=== PATIENT | female | born 1965 | race Caucasian/White ===

== ENCOUNTER 2020-04-12 07:10 | Emergency (ER) | payer SELFPAY ==
[2020-04-12] VITALS (8 sets, daily range): BP systolic 97–144; BP diastolic 62–93; PULSE 88–102; RESP 14–24; TEMP 36.3; O2SAT 91–98; BMI 22.8
--- NOTE | 2020-04-12 07:25 | ECG_ITS ---
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 Measurements Intervals [place] Rate: 89 P: 85 [place]: 148 QRS: 80 QRSD: 89 T: 71 QT: 357 QTc: 434 Interpretive Statements SINUS RHYTHM No previous ECG available for comparison Electronically Signed On 04-12-2020 19:58:39 TRADE MARK EXAMINER by Noé Parnell M.D. [id number] f
--- NOTE | 2020-04-12 07:25 | XR_ITS ---
WS: [id number] Portable AP upright chest, 04/12/2020 Clinical Data: sob Comparison: None. Findings: No nodules, masses or effusions are seen. The heart is normal. The pulmonary vascularity is not increased. No pneumonia or pneumothorax is seen. The aortic arch shows tortuosity. The diaphragm s are flattened. XR/XR chest 1V portable [id number] Impression: Atherosclerosis and hyperinflation.
--- NOTE | 2020-04-12 07:36 | ED_ITS ---
HPI - SOB/Dyspnea General: Chief Complaint: Shortness of Breath/Dyspnea Stated Complaint: SOB asthma related Time Seen by Provider: 04/12/20 07:16 Source: patient Mode of arrival: ambulatory Limitations: no limitations History of Present Illness: Associated symptoms: Deny abdominal pain, chest congestion, diaphoresis, dizziness, extremity pain, fever(s), hemoptysis, lightheadedness, nausea, orthopnea, palpitations, polydipsia, polyuria, syncope or vomiting Review of Systems Const: Denies: fever(s), chills, body aches, change in appetite, change in weight, fatigue, malaise or diaphoresis Eyes: Denies: change in vision, blurry vision, blind spots, photophobia, eye discomfort, eye discharge, eye redness, floaters or seeing flashes ENMT: Denies: throat pain, uvular edema, enlarged tonsils, odynophagia, hoarseness, mouth pain, swelling of lips/tongue, oral sores, bleeding gums, dental pain, dry mouth, ear or mastoid pain, ear discharge, change in hearing, tinnitus, disequilibrium, nasal discharge, nasal congestion, post nasal drip or sinus pain Card: Denies: palpitations, irregular heart rhythm, edema, swelling of feet/ankles, lightheadedness, syncope, pre-syncope, dyspnea on exertion, orthopnea, leg pain with exertion or acrocyanosis Resp: Denies: productive cough, non-productive cough, stridor, change in phlegm color, hemoptysis or chest congestion GI: Denies: abdominal pain, nausea, vomiting, hematemesis, dysphagia, diarrhea, constipation, GI cramping, change in bowel habits or rectal pain : Denies: flank pain, difficulty voiding, dysuria, urinary frequency, urinary urgency, urinary hesitancy or hematuria Musc: Denies: neck pain, back pain, extremity pain, extremity swelling, joint pain, joint swelling, joint redness, joint warmth or deformity Skin/Breast: Denies: rash, pruritus, erythema, sores, new lesions, changes in skin color or dry skin Neuro: Denies: headache(s), numbness in extremities, weakness in extremities, sensory changes, lack of coordination, difficulty walking, frequent falls, dizziness, vertigo, confusion, behavioral changes, Slurred speech present, difficulty communicating thoughts or seizure-like activity Psych: Denies: anxiety, depression, suicidal ideation or homicidal ideation Endo: Denies: polyuria, polydipsia, tired all the time, cold intolerance, excessive sweating, flushing, hot flashes or heat intolerance Iftikhar/Lymph: Denies: easy bruising, easy bleeding, petechiae, purpura, enlarged lymph nodes or tender lymph nodes All/Imm: Denies: urticaria, throat swelling, tongue swelling, facial swelling, acute wheezing or itchy eyes Physical Exam Const: COMMON NORMALS: patient oriented x3, healthy appearing, alert and well nourished GENERAL APPEARANCE: cooperative, comfortable, well kempt and well developed; not ill appearing ORIENTATION/CONSCIOUSNESS: Yes awake, Yes oriented to person, Yes oriented to place and Yes oriented to time HENMT: COMMON NORMALS: normocephalic, atraumatic, hearing grossly normal bilaterally, external ears normal, EAC's normal, TM's normal bilaterally, Normal external nose present, Normal nasal mucous membranes and turbinates present and moist oral mucous membranes HEAD & SCALP: normal to inspection, normocephalic and atraumatic FACE & SINUS: normal facial exam, sinuses nontender and face symmetric NOSE: Normal external nose present, Normal nares present, Normal nasal mucous membranes and turbinates present, No nasal discharge present and Abnormal external nose present EXTERNAL EAR: Yes external ears normal and Yes mastoids normal EXTERNAL AUDITORY CANAL: EAC's normal TYMPANIC MEMBRANE: TM's normal bilaterally MOUTH: Normal oral and palatal mucosa present, lip normal, tongue normal and Normal salivary glands and ducts present THROAT: no uvular edema Eye: COMMON NORMALS: Equal, round and reactive pupils present, EOMs intact bilaterally, conjunctivae normal, no scleral icterus and no papilledema GENERAL EYE: appearance normal, both eyes and all related structures EYELID: eyelids normal CONJUNCTIVA: Yes conjunctivae normal SCLERA: sclerae normal CORNEA: Yes corneas normal PUPIL: Yes Equal, round and reactive pupils present DIRECT OPHTHALMOSCOPY: Yes no papilledema Neck/C-Spine: COMMON NORMALS: full ROM, no lymphadenopathy, supple, no meningeal signs, no JVD and Thyroid normal GENERAL: Yes normal visual inspection and Yes trachea midline THYROID: Thyroid normal CERVICAL SPINE: Yes cervical ROM normal Lymph: LYMPHATIC: no lymphadenopathy noted and no lymphedema noted Chest: COMMONS NORMALS: normal inspection of the chest and normal palpation of entire chest wall Resp: COMMON NORMALS: No retractions and No use of accessory muscles EFFORT & INSPECTION: Yes symmetric chest movement, Yes tachypneic and Yes audible wheezes Cardio: COMMON NORMALS: no JVD, regular rate and regular rhythm RATE: regular rate RHYTHM: regular rhythm GI: COMMON NORMALS: Normal to inspection, nondistended, normoactive bowel sounds present, Soft to palpation, non-tender, No hepatosplenomegaly present, no masses and no bruits INSPECTION: Yes normal to inspection AUSCULTATION: Yes normoactive bowel sounds PALPATION: Yes Soft to palpation and Yes No hepatosplenomegaly present PERCUSSION: normal to percussion RECTAL EXAM: deferred : COMMON NORMALS: Yes no CVA tenderness, Yes normal external appearance, Yes normal appearance of the vagina, Yes normal appearance of the cervix, Yes normal bimanual exam, Yes No adnexal tenderness and Yes no masses BLADDER/KIDNEY EXAM: Yes no CVA tenderness BIMANUAL EXAM - VAGINA & UTERUS: Yes normal bimanual exam Back/Pelvis: COMMON NORMALS: no CVA tenderness, thoracic and lumbar spine normal to inspection, no thoracic nor lumbar tenderness, thoraco-lumbar ROM normal and straight leg raise negative bilaterally THORACIC SPINE/UPPER BACK: Yes normal to inspection LUMBAR SPINE/LOWER BACK: Yes normal to inspection Extremity: COMMON NORMALS: normal to inspection, full ROM and capillary refill normal GENERAL: Yes normal exam except as noted Neuro: COMMON NORMALS: patient oriented x3, CN's II-XII intact bilaterally, moves all extremities, no focal motor deficits, no sensory deficits noted, deep tendon reflexes 2+ bilaterally and gait normal SENSORIUM/ORIENTATION: Yes alert, Yes oriented to person, Yes oriented to place and Yes oriented to time MENINGEAL SIGNS: Yes no meningeal signs CRANIAL NERVES: Yes CN normal except as noted SPEECH: speech normal GAIT: Yes Normal gait present SENSORY EXAM: Yes extremities MOTOR EXAM: 5/5 motor strength present throughout Psych: COMMON NORMALS: mental status grossly normal, Normal thought process present, cooperative, normal affect, speech normal, activity/motor behavior normal, denies hallucinations, denies homicidal ideation and denies suicidal ideation APPEARANCE: Yes grossly normal and Yes well kempt ATTITUDE: Yes calm ACTIVITY/MOTOR BEHAVIOR: Yes appropriate eye contact SPEECH: Yes normal speech THOUGHT PROCESS: Normal thought process present THOUGHT CONTENT: Yes Normal thought content present ATTENTION/CONCENTRATION: Yes attention grossly intact MEMORY/COGNITION: Yes memory grossly intact INSIGHT: Good insight present (Psych) JUDGEMENT: Good judgement present (Psych) Skin: COMMON NORMALS: no rashes or lesions noted, no wounds, turgor normal, no jaundice, no petechiae and no mottling GENERAL SKIN EXAM: no rashes or l esions noted and turgor normal Course Vital Signs: Vital signs: Vital Signs Temperature 97.4 F L 04/12/20 07:21 Pulse Rate 100 04/12/20 12:37 Respiratory Rate 14 04/12/20 12:37 Blood Pressure 115/72 04/12/20 11:17 Pulse Oximetry 94 04/12/20 12:37 MDM - SOB/Dyspnea MDM Narrative: Medical decision making narrative: Pt presented with resp iratory difficulties and audible wheezes. Pt was givenduo neb hour long and solu medrol 125 mg IV and had clinical improvement. Pts labs did not reveal any concerning findings Chest xray did not reveal any areas of consolidation or infultrate. Pt was not hypoxi and was ambulated and remain 92-94% on RA. I will send patient home with albuterol neb, steroids and z-JORJE EKG did not reveal any st elevation or depression - trop and repeat trop were normal this making cardiac ischemia unlikely. Covid was negative With the clinical improvement, I feel patient is appropriate for outpatient management Return precautions advised and home care reviewd. Lab Data: Labs: Lab Results 04/12/20 04/12/20 04/12/20 Range/Units 07:40 07:40 07:40 WBC 9.6 (4.0-10.0) 10^3/ uL RBC 4.93 (4.1-5.3) 10^6/u L Hgb 14.6 (11.5-15.3) g/dL Hct 45.8 (37.0-47.0) % MCV 92.9 (81-99) fL MCH 29.6 (28.0-34.0) pg MCHC 31.9 (30.0-36.0) g/dL RDW 13.2 (12.1-15.1) % Plt Count 369 (130-400) 10^3/c mm MPV 9.8 (7.4-10.4) fL Neut % (Auto) 50.8 % Lymph % (Auto) 30.9 % Newton % (Auto) 5.8 % Eos % (Auto) 9.9 % Baso % (Auto) 2.1 % Neut # (Auto) 4.88 (1.8-7.7) 10^3/u L Lymph # (Auto) 3.0 (0.8-4.8) 10^3/u L Newton # (Auto) 0.6 (0.2-0.9) 10^3/u L Eos # (Auto) 1.0 H (0.0-0.8) 10^3/u L Baso # (Auto) 0.2 H (0.0-0.1) 10^3/u L Nucleated RBC % (a uto) 0 % Nucleated RBCs # 0.0 /100WBC Sodium 141 (136-145) mmol/L Potassium 4.2 (3.5-5.1) mmol/L Chloride 107 (98-107) mmol/L Carbon Dioxide 24 (22-29) mmol/L Anion Gap 14.2 (5-19) BUN 6 (6-20) mg/dL Creatinine 0.3 L (0.5-0.9) mg/dL GFR Calculation 231.0 H (90-130) mL/min Glucose 108 (65-115) mg/dL Calculated Osmolal ity 290 (285-295) mOsm/k g Calcium 9.2 (8.5-10.5) mg/dL Total Bilirubin 0.2 (0.15-1.2) mg/dL AST 17 (0-32) U/L ALT 15 (0-33) U/L Alkaline Phosphata se 92 (35-105) IU/L Troponin T Baselin e 6 (0-10) ng/L Troponin T 120 Min [place] (0-10) ng/L Delta Troponin T (0-10) ABS# Total Protein 7.0 (6.6-8.7) g/dL Albumin 4.6 (3.5-5.2) g/dL Globulin 2.4 (1.3-4.6) g/dL SARS-CoV-2 Ag (Rap id) (Negative) 04/12/20 04/12/20 Range/Units 08:00 10:50 WBC (4.0-10.0) 10^3/ uL RBC (4.1-5.3) 10^6/u L Hgb (11.5-15.3) g/dL Hct (37.0-47.0) % MCV (81-99) fL MCH (28.0-34.0) pg MCHC (30.0-36.0) g/dL RDW (12.1-15.1) % Plt Count (130-400) 10^3/c mm MPV (7.4-10.4) fL Neut % (Auto) % Lymph % (Auto) % Newton % (Auto) % Eos % (Auto) % Baso % (Auto) % Neut # (Auto) (1.8-7.7) 10^3/u L Lymph # (Auto) (0.8-4.8) 10^3/u L [place] # (Auto) (0.2-0.9) 10^3/u L Eos # (Auto) (0.0-0.8) 10^3/u L Baso # (Auto) (0.0-0.1) 10^3/u L Nucleated RBC % (a uto) % Nucleated RBCs # /100WBC Sodium (136-145) mmol/L Potassium (3.5-5.1) mmol/L Chloride (98-107) mmol/L Carbon Dioxide (22-29) mmol/L Anion Gap (5-19) BUN (6-20) mg/dL Creatinine (0.5-0.9) mg/dL GFR Calculation (90-130) mL/min Glucose (65-115) mg/dL Calculated Osmolal ity (285-295) mOsm/k g Calcium (8.5-10.5) mg/dL Total Bilirubin (0.15-1.2) mg/dL AST (0-32) U/L ALT (0-33) U/L Alkaline Phosphata se (35-105) IU/L Troponin T Baselin e (0-10) ng/L Troponin T 120 Min [place] 6.00 (0-10) ng/L Delta Troponin T 0 (0-10) ABS# Total Protein (6.6-8.7) g/dL Albumin (3.5-5.2) g/dL Globulin (1.3-4.6) g/dL SARS-CoV-2 Ag (Rap id) Negative (Negative) Discharge Plan Discharge Patient Disposition: Home Clinical Impression: Asthma with exacerbation Qualifiers: Asthma severity: mild Asthma persistence: intermittent Qualified Code(s): J45.21 - Mild intermittent asthma with (acute) exacerbation Condition: Stable Prescriptions: New Zithromax Z-Jorje 250 mg tablet See Rx Instructions .ROUTE .COMPLEX Qty: 6 RF: 0 prednisone 20 mg tablet 20 mg PO BID 5 Days Qty: 10 RF: 0 albuterol sulfate 2.5 mg /3 mL (0.083 %) solution for nebulization 1.25 mg inhalation Q8H PRN (Reason: shortness of breath or wheezing) Qty: 15 RF: 0 No Action albuterol sulfate 2.5 mg /3 mL (0.083 %) Solution For Nebulization 2.5 mg INHALATION Q4H PRN (Reason: Shortness Of Breath) RF: 0 Hair,Skin and Nails Tablet 1 tab PO DAILY RF: 0 albuterol sulfate 90 mcg/actuation Hfa Aerosol Inhaler 1 inh INHALATION QID PRN (Reason: Shortness Of Breath) RF: 0 Discharge Orders: Discharge Order (Routine); Ordered 04/12/20 Ordered By: Brenda Higgins Discharge Diet: Advance as tolerated Discharge Activity: Resume usual activity Patient Instructions: Asthma (ED) Activity Restrictions/Additional Instructions: Please take medications as prescribed Please return to ER with any difficulty breathing Please follow up with PCP Coding Level of Care Code ED Citrus Fruit Colorer for Susie Fwd Exam Comprehensive
[2020-04-12 08:03] LABS: Basophils # 0.2 10^3/uL (0.0-0.1); Basophils % 2.1 %; Eosinophils % 9.9 %; Hematocrit 45.8 % (37.0-47.0); Hemoglobin 14.6 g/dL (11.5-15.3); Lymphocytes % 30.9 %; Mean Corpuscular HGB Conc 31.9 g/dL (30.0-36.0); Mean Corpuscular Hemoglobin 29.6 pg (28.0-34.0); Mean Corpuscular Volume 92.9 fL (81-99); Mean Platelet Volume 9.8 fL (7.4-10.4); Monocytes # 0.6 10^3/uL (0.2-0.9); Monocytes % 5.8 %; Neutrophils # 4.88 10^3/uL (1.8-7.7); Neutrophils % 50.8 %; Nucleated Red Blood Cells % 0 %; Platelet Count 369 10^3/cmm (130-400); Red Blood Count 4.93 10^6/uL (4.1-5.3); Red Cell Distribution Width 13.2 % (12.1-15.1); White Blood Count 9.6 10^3/uL (4.0-10.0)
[2020-04-12 08:23] LABS: Alanine Aminotransferase 15 U/L (0-33); Albumin Level 4.6 g/dL (3.5-5.2); Alkaline Phosphatase 92 IU/L (35-105); Anion Gap 14.2 (5-19); Aspartate Amino Transferase 17 U/L (0-32); Blood Urea Nitrogen 6 mg/dL (6-20); Calcium 9.2 mg/dL (8.5-10.5); Carbon Dioxide 24 mmol/L (22-29); Chloride 107 mmol/L (98-107); Globulin 2.4 g/dL (1.3-4.6); Glucose 108 mg/dL (65-115); Osmolality Calculated 290 mOsm/kg (285-295); Potassium 4.2 mmol/L (3.5-5.1); Sodium 141 mmol/L (136-145); Total Bilirubin 0.2 mg/dL (0.15-1.2)
[2020-04-12 08:24] LABS: Troponin(5th) Baseline 6 ng/L (0-10)
[2020-04-12 09:10] LABS: SARS Covid-2 Antigen Negative (Negative)
--- NOTE | 2020-04-12 09:11 | ECG_ITS ---
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 Measurements Intervals [place] Rate: 86 P: 85 ME: 156 QRS: 85 QRSD: 89 T: 73 QT: 380 QTc: 457 Interpretive Statements SINUS RHYTHM Compared to ECG 04/12/2020 07:45:54 No significant changes Electronically Signed On 04-12-2020 19:57:28 HYDROCHLORIC AREA SUPERVISOR by Noé Parnell M.D. [email or web address]/[id number] f
[2020-04-12] MEDS: ipratropium-albuterol 3 mL Neb INHALATION ×3 (09:25→09:26)
--- NOTE | 2020-04-12 11:11 | ECG_ITS ---
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 Measurements Intervals [place] Rate: 87 P: 87 [place]: 153 QRS: 82 QRSD: 90 T: 73 QT: 395 QTc: 477 Interpretive Statements SINUS RHYTHM POSSIBLE LEFT ATRIAL ENLARGEMENT [-0.1mV P WAVE IN V1/V2] No previous ECG available for comparison Electronically Signed On 04-12-2020 20:17:43 CHILD AND FAMILY COUNSELOR by Noé Parnell M.D. [id number] f
[2020-04-12 11:23] LABS: Troponin 5 2HR Delta 0 ABS# (0-10)
[2020-04-12] MEDS: albuterol 8 gm MDI 2 PUFF INHALATION (12:37)
== END 2020-04-12 12:40 | disposition home or self-care (01) ==
PROVIDERS: Emergency Provider Registered Nurse
DX: J45.21 Mild intermittent asthma with (acute) exacerbation (principal)
CPT/HCPCS: 12345; 71045; 80053; 84484; 85025; 87426; 93005; 94640; 96374; 96375; 99283; 99284; J2930; J3535

== ENCOUNTER 2020-10-02 21:15 | Emergency (ER) | payer SELFPAY ==
[2020-10-02 21:23] VITALS: BP 128/78; PULSE 74; RESP 16; TEMP 36.3; O2SAT 92; BMI 23.8
--- NOTE | 2020-10-02 21:51 | XRR_ITS ---
PROCEDURE INFORMATION: Exam: XR Chest Exam date and time: 10/02/2020 9:52 PM Age: 54 years old Clinical indication: Shortness of breath; Additional info: Asthma attack/sob TECHNIQUE: Imaging protocol: XR of the chest. Views: 2 views. COMPARISON: CR XR chest 1V portable [id number] 04/12/2020 7:35 AM FINDINGS: Lungs: Unremarkable. No consolidation. Pleural spaces: Unremarkable. No pleural effusion. No pneumothorax. Heart/Mediastinum: Unremarkable. No cardiomegaly. Bones/joints: Unremarkable. XR/XR chest 2V* [id number] IMPRESSION: No acute findings.
--- NOTE | 2020-10-02 22:03 | ED_ITS ---
HPI - Asthma General: Chief Complaint: Asthma Stated Complaint: ASTHMA ATTACK Time Seen by Provider: 10/02/20 22:01 History of Present Illness: HPI Narrative: Patient is a 54-year-old female that comes to the ED with asthma attack. Patient has a history of asthma and uses inhalers at home to help control asthma. Patient says that yesterday she started developing wheezing and chest tightness. She is used her inhalers and it has not helped her symptoms. The wheezing and shortness of breath have continued. She is that she feels a little bit of pain on the left lung. She says her cough is dry nonproductive. She says she does not use any oxygen at home. Patient says she has had asthma attacks like this in the past but this 1 does not seem to be responding to her inhalers. Patient says she has not been to a doctor in years and states that she has a 02-cfgs-ruac smoking history and just stopped smoking last week. Patient says she has had this shortness of breath that is progressing for the past couple years. She states that recently she is getting more frequent episodes of shortness of breath especially when she is up and exerting herself. She thinks that this is been going on for about a year or more. She says she avoids doing activities where she might be exerting herself due to shortness of breath. Denies any fever, nausea/vomiting, abdominal pain, chest pain, bladder or bowel symptoms. Associated symptoms: Reports non-productive cough; Deny chest pain, fever(s) or productive cough Review of Systems Const: Denies: fever(s), chills or fatigue Eyes: Denies: change in vision or eye discomfort ENMT: Denies: throat pain, odynophagia, nasal discharge or nasal congestion Card: Denies: chest pain, palpitations, edema, swelling of feet/ankles, dyspnea on exertion or orthopnea Resp: Reports: dyspnea, non-productive cough and wheezing; Denies: productive cough GI: Denies: abdominal pain, nausea, vomiting, diarrhea, constipation or hematochezia : Denies: flank pain, dysuria or hematuria Musc: Denies: neck pain, back pain or extremity swelling Skin/Breast: Denies: rash or new lesions Neuro: Denies: headache(s), numbness in extremities or weakness in extremities PFS ED PFSH: Medical History Anxiety and depression Asthma Hx of small bowel obstruction Surgical History History of ear surgery Hx of hysterectomy Family History Other Cancer Diabetes Stroke Social History Smoking and tobacco status: current every day smoker cigarettes Packs smoked per day: 1 Quit status (tobacco): considering quitting Alcohol intake: current Alcohol intake frequency: few times a week Desire information about alcohol rehabilitation?: Yes Marital status: Legally Number of children: 3 Number of grandchildren: 4 Current occupational status: unemployed Physical Exam Const: COMMON NORMALS: patient oriented x3 and alert GENERAL APPEARANCE: cooperative and comfortable HENMT: COMMON NORMALS: normocephalic HEAD & SCALP: normocephalic MOUTH: Normal oral and palatal mucosa present THROAT: posterior oropharynx normal and uvula midline Neck/C-Spine: COMMON NORMALS: supple GENERAL: Yes normal visual inspection Resp: COMMON NORMALS: normal respiratory effort, No retractions and No use of accessory muscles EFFORT & INSPECTION: Yes tachypneic (20-22 resp per minute) and Yes audible wheezes AUSCULTATION: wheezes expiratory wheezes (Bilaterally throughout) and diminished lung sounds bilateral (At the bases bilaterally) in the lower lung escalante Cardio: COMMON NORMALS: regular rate, regular rhythm, S1 normal heart sound present, S2 normal heart sound present, No gallops present (Cardio), No clicks present (Cardio), No murmurs present (Cardio) and Peripheral pulses 2+ throughout RATE: regular rate RHYTHM: regular rhythm HEART SOUNDS: S1 normal heart sound present and S2 normal heart sound present PERIPHERAL PULSES: Peripheral pulses 2+ throughout GI: COMMON NORMALS: Normal to inspection, nondistended, normoactive bowel sounds present, Soft to palpation, non-tender and no masses PALPATION: Yes Soft to palpation : COMMON NORMALS: Yes no CVA tenderness BLADDER/KIDNEY EXAM: Yes no CVA tenderness Back/Pelvis: COMMON NORMALS: no CVA tenderness Extremity: COMMON NORMALS: normal to inspection Neuro: COMMON NORMALS: patient oriented x3 and moves all extremities SENSORIUM/ORIENTATION: Yes alert Skin: GENERAL SKIN EXAM: dry skin Course Reevaluation(s): Reevaluation #1: After patient got 2 DuoNeb breathing treatments I went in and reexamined patient. She says she feels a lot better and that she is able to breathe better. She still has some wheezing upon auscultation but her lung sounds have definitely improved and I can hear lung sounds at the bases bilaterally which is an improvement from the first exam. Time: 23:01 Reevaluation #2: I have ordered another breathing treatment for patient and she says her lungs and breathing are feeling better. Just before the breathing treatment she got up and went to the bathroom and says that on her way back she felt a little short of breath. She did not have any oxygen on when I came back into the room to check on her and her O2 saturation was at 88 and 89%. I put patient back on the nasal cannula at 2.5 L and her oxygen went back up to 94%. Time: 23:25 Consultations: Consultation #1: I placed a home O2 eval with respiratory therapist. RT said that patient did not qualify for home O2. Patient says that she was feeling a lot better while she was up and moving around and her shortness of breath was better as well. Time: 00:00 Vital Signs: Vital signs: Vital Signs Temperature 97.9 F 10/03/20 00:39 Pulse Rate 93 10/03/20 00:39 Respiratory Rate 19 H 10/03/20 00:39 Blood Pressure 129/75 10/03/20 00:39 Pulse Oximetry 93 10/03/20 00:39 MDM - Asthma MDM Narrative: Medical decision making narrative: Patient is a 54-year-old female comes to the ED with wheezing and shortness of breath. Patient has a history of asthma and has a [id number]-dlqd smoking history. Patient says for the last year she is been having more progressive shortness of breath upon exertion. Exam showed a patient with audible wheezing and tachypnea. She had wheezing throughout her lungs bilaterally and at the bases had some decreased breath sounds. Chest x-ray showed no acute findings. Patient was given 3 DuoNeb breathing treatments and Solu-Medrol while here in the ED. After the breathing treatments her wheezing, lung sounds greatly improved. Patient says she felt a lot better after the breathing treatments. I ordered a home O2 eval and the respiratory therapist performed evaluation and says that she does not qualify for home oxygen. Patient was diagnosed with asthma with acute exacerbation and I discharged her with a prescription for Medrol Dosepak and an Advair inhaler. I told her to follow-up with her PCP within 7 days for reevaluation. Return to ED precautions given. Imaging Data^: CXR: Attestation: I personally reviewed and interpreted this imaging study as follows: Radiologist's impression: [address] [address] XRay Report Signed Patient: Andra Johnson Unit #: [id number] : 1965 Age/Sex: 54 / F ADM Date: 10/02/20 Loc: ER Room/Bed: Attending Dr: Ordering Provider/Ordering MD: Shiv Mcwilliams Date of Service: 10/02/20 Procedure(s): XR chest 2V* [id number] Accession Number(s): [id number] Report Number: [id number] PROCEDURE INFORMATION: Exam: XR Chest Exam date and time: 10/02/2020 9:52 PM Age: 54 years old Clinical indication: Shortness of breath; Additional info: Asthma attack/sob TECHNIQUE: Imaging protocol: XR of the chest. Views: 2 views. COMPARISON: CR XR chest 1V portable [id number] 04/12/2020 7:35 AM FINDINGS: Lungs: Unremarkable. No consolidation. Pleural spaces: Unremarkable. No pleural effusion. No pneumothorax. Heart/Mediastinum: Unremarkable. No cardiomegaly. Bones/joints: Unremarkable. XR/XR chest 2V* [id number] IMPRESSION: No acute findings. Dictated By: Ayden Nair Signed By: Ayden Nair Signed Date/Time: 10/02/202227 DD/ 25 Discharge Plan Discharge Patient Disposition: Home Clinical Impression: Asthma with acute exacerbation Qualifiers: Asthma severity: moderate Asthma persistence: persistent Qualified Code(s): J45.41 - Moderate persistent asthma with (acute) exacerbation Condition: Stable Prescriptions: New Medrol (Jorje) 4 mg tablets,dose pack See Rx Instructions .ROUTE .COMPLEX Qty: 21 RF: 0 Advair Diskus 250-50 mcg/dose blister with device 1 inh inhalation Q12H Qty: 60 RF: 0 No Action bupropion HCl 75 mg tablet 75 mg PO BID Qty: 60 RF: 0 albuterol sulfate 2.5 mg /3 mL (0.083 %) solution for nebulization 2.5 mg INHALATION Q4H PRN (Reason: Shortness Of Breath) Qty: 180 RF: 1 albuterol sulfate 90 mcg/actuation HFA aerosol inhaler 1 inh INHALATION QID PRN (Reason: Shortness Of Breath) Qty: 8.5 RF: 3 Hair,Skin and Nails Tablet 1 tab PO DAILY RF: 0 albuterol sulfate 2.5 mg /3 mL (0.083 %) solution for nebulization 1.25 mg inhalation Q8H PRN (Reason: shortness of breath or wheezing) Qty: 15 RF: 0 Discharge Orders: Discharge ED (Routine); Ordered 10/03/20 Ordered By: Shiv Mcwilliams Referrals: Lane Brown MD [Primary Care Provider] - Discharge Diet: Regular Discharge Activity: Increase activity as tolerated Patient Instructions: Asthma (ED), Chronic Obstructive Pulmonary Disease (ED), Reactive Airways Disease (ED) Activity Restrictions/Additional Instructions: Follow-up with your PCP within the next week for reevaluation. Discuss with your PCP about getting set up with a environmental protection forester to do some lung studies. take medications as prescribed. Return to the ER or your medical provider if condition worsens. Please read and understand discharge instructions. Thank you for choosing [facility] for your healthcare needs today. Please realize this is an emergency room and that we are providing you with a medical screening exam and this may not be complete and all inclusive of all the testing and or work up that you may need to determine your ailment or severity of your illness. It is very important that you follow up as instructed or that you return to the Emergency Department should you have concerns or if your condition changes or worsens in any way. Coding Level of Care Code ED Shape Brick Molder for Susie Fwd Exam Comprehensive
[2020-10-02 22:21] VITALS: BP 151/96; PULSE 68; RESP 22; O2SAT 97
[2020-10-02 22:48] VITALS: PULSE 66; RESP 17; O2SAT 96
[2020-10-02] MEDS: ipratropium-albuterol 3 mL Neb 6 ML INHALATION (22:48)
[2020-10-02 22:57] VITALS: PULSE 67
[2020-10-02 23:07] VITALS: PULSE 68; RESP 17; O2SAT 94
[2020-10-02] MEDS: ipratropium-albuterol 3 mL Neb INHALATION (23:07)
[2020-10-02 23:11] VITALS: PULSE 69
[2020-10-03 00:05] VITALS: O2SAT 92; O2SAT 96
[2020-10-03 00:39] VITALS: BP 129/75; PULSE 93; RESP 19; TEMP 36.6; O2SAT 93
== END 2020-10-03 00:40 | disposition home or self-care (01) ==
PROVIDERS: Emergency Provider Physician Assistant; PCP Family Medicine Adult Medicine
DX: J45.41 Moderate persistent asthma with (acute) exacerbation (principal); F17.210 Nicotine dependence, cigarettes, uncomplicated
CPT/HCPCS: 71046; 94640; 96374; 99283; J2930

== ENCOUNTER 2021-04-12 17:09 | Emergency (ER) | payer SELFPAY ==
[2021-04-12] VITALS (7 sets, daily range): BP systolic 120–168; BP diastolic 74–85; PULSE 68–85; RESP 18–32; TEMP 36.7; O2SAT 88–96; BMI 25.6
[2021-04-12] MEDS: ipratropium-albuterol 3 mL Neb INHALATION ×2 (19:30→23:02)
--- NOTE | 2021-04-12 20:30 | XRR_ITS ---
PROCEDURE INFORMATION: Exam: XR Chest Exam date and time: 04/12/2021 8:30 PM Age: 55 years old Clinical indication: Shortness of breath; Patient HX: C/O worsening SOB x 3 days; Additional info: Dyspnea TECHNIQUE: Imaging protocol: XR of the chest. Views: 1 view. COMPARISON: CR XR chest 2V* [id number] 10/02/2020 9:55 PM FINDINGS: Increased markings are seen throughout the lungs similar to the old exams. There is no consolidation. There is no pleural effusion or pneumothorax. The heart size is normal. XR/XR chest 1V portable [id number] IMPRESSION: 1. Stable appearance of the chest. 2. Increased markings. No consolidation. Radiation Dose CTDIVOL = (mGy): DLP = (mGy-cm)
--- NOTE | 2021-04-12 20:31 | W.ED.ASTHMA ---
HPI - Asthma General: Chief Complaint: Asthma Stated Complaint: Asthma Attack Time Seen by Provider: 04/12/21 20:08 History of Present Illness: HPI Narrative: A 55-year-old female comes in today with complaints of shortness of breath and worsening symptoms over the last 3 days. Patient reports she is asthmatic and COPD. Patient has recently been back from a travel. Patient denies any fever. Patient does have some body aches. Patient has been vaccinated for COVID-19. Patient appears chronically ill. Patient appears in mild respiratory distress. Review of Systems General: Reports: 10 or more systems reviewed and unremarkable except in HPI and below Resp: Reports: dyspnea PFS ED PFSH: Medical History (Updated 04/12/21 @ 22:12 by LUIS ENRIQUE Rivera) Anxiety and depression Asthma COPD (chronic obstructive pulmonary disease) Hx of small bowel obstruction Otitis media Psoriasis and similar disorders Sprain and strain of lumbosacral joint/ligament Surgical History History of ear surgery Hx of hysterectomy Family History Other Cancer Diabetes Stroke Social History Smoking and tobacco status: light tobacco smoker cigarettes Packs smoked per day: 1 Quit status (tobacco): considering quitting Alcohol intake: current Alcohol intake frequency: few times a week Desire information about alcohol rehabilitation?: Yes Marital status: Legally Number of children: 3 Number of grandchildren: 4 Current occupational status: unemployed Physical Exam Const: COMMON NORMALS: no acute distress and patient oriented x3 GENERAL APPEARANCE: cooperative HENMT: COMMON NORMALS: normocephalic and Normal external nose present HEAD & SCALP: normal to inspection and normocephalic NOSE: Normal external nose present MOUTH: Normal oral and palatal mucosa present THROAT: posterior oropharynx normal Eye: GENERAL EYE: appearance normal, both eyes and all related structures Neck/C-Spine: COMMON NORMALS: full ROM Lymph: LYMPHATIC: no lymphadenopathy noted Chest: COMMONS NORMALS: normal inspection of the chest Resp: COMMON NORMALS: normal respiratory effort EFFORT & INSPECTION: Yes able to speak in complete sentences AUSCULTATION: rales and diminished lung sounds bilateral (bases) Cardio: COMMON NORMALS: regular rate and regular rhythm RATE: regular rate RHYTHM: regular rhythm GI: COMMON NORMALS: non-tender Back/Pelvis: COMMON NORMALS: thoracic and lumbar spine normal to inspection Extremity: COMMON NORMALS: normal to inspection Neuro: COMMON NORMALS: patient oriented x3 and moves all extremities Psych: COMMON NORMALS: mental status grossly normal and cooperative Skin: COMMON NORMALS: no rashes or lesions noted GENERAL SKIN EXAM: no rashes or lesions noted Course Vital Signs: Vital signs: Vital Signs Temperature 98.1 F 04/12/21 18:48 Pulse Rate 80 04/12/21 23:04 Respiratory Rate 24 H 04/12/21 23:02 Blood Pressure 132/85 04/12/21 19:20 Pulse Oximetry 91 04/12/21 23:02 MDM - Asthma MDM Narrative: Medical decision making narrative: Patient comes in tonight with persistent shortness of breath for the last 3 days. On exam patient has some decreased air sounds in the lower bases but otherwise is relatively clear. Skin is warm and dry. Vital signs are normal. At rest patient's O2 saturation does drop to 89% on room air. Differential diagnosis includes but not limited to exacerbation of COPD, pneumonia, viral syndrome. Laboratory values were negative for Covid and influenza. CBC and CMP and ABGs were unremarkable. Chest x-ray showed emphysematous changes. We will treat patient with steroids and antibiotics. Patient was given Solu-Medrol 125 mg IV and 6 mg of dexamethasone IV. Patient was started on azithromycin. I attempted to get patient qualified for home oxygen on ambulation patient's lowest SaO2 sat was 91%. Patient may need to have further evaluation with overnight pulse oximetry to see if she will qualify for oxygen at bedtime. Reviewed this with patient with recommendations. Patient reported understanding agreed to plan. Lab Data: Labs: Lab Results 04/12/21 04/12/21 04/12/21 20:05 20:05 20:30 WBC 10.2 10^3/uL H 10 ^3/uL (4.0-10.0) RBC 4.83 10^6/uL 10^6 /uL (4.1-5.3) Hgb 14.6 g/dL g/dL (11.5-15.3) Hct 45.3 % % (37.0-47.0) MCV 93.8 fl fl (81-99) MCH 30.2 pg pg (28.0-34.0) MCHC 32.2 g/dL g/dL (30.0-36.0) RDW 14.6 % % (12.1-15.1) Plt Count 336 10^3/cmm 10^3 /cmm (130-400) MPV 9.9 fL fL (7.4-10.4) Neut % (Auto) 54.5 % % Lymph % (Auto) 25.8 % % Pershing % (Auto) 7.7 % % Eos % (Auto) 10.2 % % Baso % (Auto) 1.4 % % Neut # (Auto) 5.58 10^3/uL 10^3 /uL (1.8-7.7) Lymph # (Auto) 2.6 10^3/uL 10^3/ uL (0.8-4.8) Pershing # (Auto) 0.8 10^3/uL 10^3/ uL (0.2-0.9) Eos # (Auto) 1.0 10^3/uL H 10^ 3/uL (0.0-0.8) Baso # (Auto) 0.1 10^3/uL 10^3/ uL (0.0-0.1) Nucleated RBC % (a uto) 0 % % Nucleated RBCs # 0.0 /100WBC /100W BC Specimen Type Arterial Sample Site Radial, right ABG pH 7.41 (7.35-7.45) ABG pCO2 39.1 mmHg mmHg (35-45) ABG pO2 85.6 mmHg mmHg (80.0-100.0) ABG HCO3 24.5 mmol/L mmol/ L (22-26) ABG Base Excess -0.1 mmol/L mmol/ L (-2.0-2.0) Dion Test Pos Hematocrit 44.3 % % (37-47) O2 Delivery Device Nc O2 Liters/Min 6.0 % % Machine Binder Stripper ID ellpe Sodium 137 mmol/L mmol/L (136-145) Potassium 3.8 mmol/L mmol/L (3.5-5.1) Chloride 102 mmol/L mmol/L (98-107) Carbon Dioxide 23 mmol/L mmol/L (22-29) Anion Gap 15.8 (5-19) BUN 8 mg/dL mg/dL (6-20) Creatinine 0.4 mg/dL L mg/dL (0.5-0.9) GFR Calculation 165.1 mL/min H mL /min (90-130) Glucose 96 mg/dL mg/dL (65-115) Calculated Osmolal ity 282 mOsm/kg L mOs m/kg (285-295) Calcium 9.6 mg/dL mg/dL (8.5-10.5) Total Bilirubin 0.3 mg/dL mg/dL (0.15-1.2) AST 19 U/L U/L (0-32) ALT 26 U/L U/L (0-33) Alkaline Phosphata se 92 IU/L IU/L (35-105) Total Protein 7.5 g/dL g/dL (6.6-8.7) Albumin 4.5 g/dL g/dL (3.5-5.2) Globulin 3.0 g/dL g/dL (1.3-4.6) Influenza Type A A g Influenza Type B A g SARS-CoV-2 Ag (Rap id) 04/12/21 04/12/21 21:51 21:51 WBC RBC Hgb Hct MCV MCH MCHC RDW Plt Count MPV Neut % (Auto) Lymph % (Auto) Pershing % (Auto) Eos % (Auto) Baso % (Auto) Neut # (Auto) Lymph # (Auto) Pershing # (Auto) Eos # (Auto) Baso # (Auto) Nucleated RBC % (a uto) Nucleated RBCs # Specimen Type Sample Site ABG pH ABG pCO2 ABG pO2 ABG HCO3 ABG Base Excess Dion Test Hematocrit O2 Delivery Device O2 Liters/Min Machine Binder Stripper ID Sodium Potassium Chloride Carbon Dioxide Anion Gap BUN Creatinine GFR Calculation Glucose Calculated Osmolal ity Calcium Total Bilirubin AST ALT Alkaline Phosphata se Total Protein Albumin Globulin Influenza Type A A g Negative (Negative) Influenza Type B A g Negative (Negative) SARS-CoV-2 Ag (Rap id) Negative (Negative) Discharge Plan Discharge Patient Disposition: Home Clinical Impression: Chronic obstructive asthma with exacerbation Condition: Stable Prescriptions: New prednisone 20 mg tablet 60 mg PO DAILY 5 Days Qty: 15 RF: 0 azithromycin 250 mg tablet 250 mg PO DAILY 4 Days Qty: 4 RF: 0 No Action sertraline 100 mg tablet 100 mg PO DAILY Qty: 30 RF: 5 albuterol sulfate 2.5 mg /3 mL (0.083 %) solution for nebulization 2.5 mg INHALATION Q4H PRN (Reason: Shortness Of Breath) Qty: 180 RF: 1 albuterol sulfate 90 mcg/actuation HFA aerosol inhaler 1 inh INHALATION QID PRN (Reason: Shortness Of Breath) Qty: 8.5 RF: 3 Advair Diskus 250-50 mcg/dose blister with device 1 inh inhalation Q12H Qty: 60 RF: 3 triamcinolone acetonide 0.1 % ointment 1 applic topical DAILY Qty: 80 RF: 3 meloxicam 7.5 mg tablet 7.5 mg PO DAILY Qty: 20 RF: 0 Discharge Orders: Discharge ED (Routine); Ordered 04/12/21 Ordered By: Shar Ramirez Referrals: Lane Brown MD [Primary Care Provider] - Patient Instructions: COPD (Chronic Obstructive Pulmonary Disease) (ED), Opioid Safety Activity Restrictions/Additional Instructions: Continue with routine care. Use albuterol every 4 hours for the next 2 to 3 days. Take antibiotics and steroids as ordered. Drink plenty of water. Follow-up with primary care in 3 days for recheck. Return to the ER for worsening symptoms. You may also need to talk with your primary care provider about getting qualified for oxygen at bedtime. Coding Level of Care Code ED Otolaryngology Rep for Susie Fwd Exam Comprehensive
[2021-04-12 20:57] LABS: ABG PCO2 39.1 mmHg (35-45); ABG PH Result 7.41 (7.35-7.45); Arterial Blood Gas Hematocrit 44.3 % (37-47); Base Excess ABG -0.1 mmol/L (-2.0-2.0); Blood Gas Allen Test Pos; Blood Gas Sample Site Radial, right; Blood Gas Sample Type Arterial; HCO3 ABG 24.5 mmol/L (22-26); Oxygen Device NC; PO2 ABG 85.6 mmHg (80.0-100.0)
[2021-04-12 21:04] LABS: Basophils # 0.1 10^3/uL (0.0-0.1); Basophils % 1.4 %; Eosinophils % 10.2 %; Hematocrit 45.3 % (37.0-47.0); Hemoglobin 14.6 g/dL (11.5-15.3); Lymphocytes # 2.6 10^3/uL (0.8-4.8); Lymphocytes % 25.8 %; Mean Corpuscular HGB Conc 32.2 g/dL (30.0-36.0); Mean Corpuscular Hemoglobin 30.2 pg (28.0-34.0); Mean Corpuscular Volume 93.8 fl (81-99); Mean Platelet Volume 9.9 fL (7.4-10.4); Monocytes # 0.8 10^3/uL (0.2-0.9); Monocytes % 7.7 %; Neutrophils # 5.58 10^3/uL (1.8-7.7); Neutrophils % 54.5 %; Nucleated Red Blood Cells % 0 %; Platelet Count 336 10^3/cmm (130-400); Red Blood Count 4.83 10^6/uL (4.1-5.3); Red Cell Distribution Width 14.6 % (12.1-15.1); White Blood Count 10.2 10^3/uL (4.0-10.0)
[2021-04-12 21:22] LABS: Alanine Aminotransferase 26 U/L (0-33); Albumin Level 4.5 g/dL (3.5-5.2); Alkaline Phosphatase 92 IU/L (35-105); Anion Gap 15.8 (5-19); Aspartate Amino Transferase 19 U/L (0-32); Blood Urea Nitrogen 8 mg/dL (6-20); Calcium 9.6 mg/dL (8.5-10.5); Carbon Dioxide 23 mmol/L (22-29); Chloride 102 mmol/L (98-107); Glomerular Filtration Rate 165.1 mL/min (90-130); Glucose 96 mg/dL (65-115); Osmolality Calculated 282 mOsm/kg (285-295); Potassium 3.8 mmol/L (3.5-5.1); Sodium 137 mmol/L (136-145); Total Bilirubin 0.3 mg/dL (0.15-1.2); Total Protein 7.5 g/dL (6.6-8.7)
[2021-04-12 21:23] LABS: Creatinine Clr Calc Pharmacy 137.4976
[2021-04-12] MEDS: ondansetron 2 mg/ML SDV 2 mL 4 MG IVP (21:24)
[2021-04-12] MEDS: sodium chloride 0.9% 1,000 ML 999 ML IV (21:26)
[2021-04-12 22:20] LABS: Influenza A by IFA Negative (Negative); Influenza B by IFA Negative (Negative); SARS Covid-2 Antigen Negative (Negative)
[2021-04-12] MEDS: dexamethasone 10 mg/mL INJ 6 MG IVP (23:23)
[2021-04-12] MEDS: azithromycin 250 mg Tablet 500 MG PO (23:24)
== END 2021-04-12 23:36 | disposition home or self-care (01) ==
PROVIDERS: Emergency Provider Nurse Practitioner Family; PCP Family Medicine Adult Medicine
DX: J44.1 Chronic obstructive pulmonary disease with (acute) exacerbation (principal); F17.210 Nicotine dependence, cigarettes, uncomplicated; Z20.822 Contact with and (suspected) exposure to COVID-19
CPT/HCPCS: 36600; 71045; 80053; 82803; 85025; 87426; 87804; 94640; 96361; 96374; 96375; 99284; J1100; J2405; J2930; J7030; Q0144

== ENCOUNTER 2021-08-26 15:53 | Emergency (ER) | payer MEDICAID, SELFPAY ==
[2021-08-26 16:02] VITALS: BP 129/78; PULSE 84; RESP 22; TEMP 36.7; O2SAT 93; BMI 25.4
--- NOTE | 2021-08-26 16:30 | XRR_ITS ---
PROCEDURE INFORMATION: Exam: XR Chest Exam date and time: 08/26/2021 4:42 PM Age: 55 years old Clinical indication: Shortness of breath; Patient HX: Allergies; Additional info: SOB TECHNIQUE: Imaging protocol: XR of the chest. Views: 1 view. COMPARISON: CR XR chest 1V portable [id number] 04/12/2021 8:42 PM FINDINGS: Lungs: Unremarkable. No consolidation. Pleural spaces: Unremarkable. No pleural effusion. No pneumothorax. Heart/Mediastinum: Unremarkable. No cardiomegaly. Bones/joints: Unremarkable. XR/XR chest 1V portable [id number] IMPRESSION: No acute findings.
[2021-08-26 16:44] LABS: Basophils # 0.2 10^3/uL (0.0-0.1); Basophils % 1.7 %; Eosinophils # 0.5 10^3/uL (0.0-0.8); Eosinophils % 4.2 %; Hematocrit 46.5 % (37.0-47.0); Hemoglobin 14.8 g/dL (11.5-15.3); Lymphocytes # 2.3 10^3/uL (0.8-4.8); Lymphocytes % 19.6 %; Mean Corpuscular HGB Conc 31.8 g/dL (30.0-36.0); Mean Corpuscular Hemoglobin 29.4 pg (28.0-34.0); Mean Corpuscular Volume 92.3 fl (81-99); Mean Platelet Volume 10.1 fL (7.4-10.4); Monocytes % 8.3 %; Neutrophils # 7.73 10^3/uL (1.8-7.7); Neutrophils % 65.7 %; Nucleated Red Blood Cells % 0 %; Platelet Count 325 10^3/cmm (130-400); Red Blood Count 5.04 10^6/uL (4.1-5.3); Red Cell Distribution Width 13.9 % (12.1-15.1); White Blood Count 11.8 10^3/uL (4.0-10.0)
[2021-08-26 17:00] LABS: Alanine Aminotransferase 13 U/L (0-33); Albumin Level 4.6 g/dL (3.5-5.2); Alkaline Phosphatase 91 IU/L (35-105); Anion Gap 14.4 (5-19); Aspartate Amino Transferase 15 U/L (0-32); Blood Urea Nitrogen 8 mg/dL (6-20); Calcium 9.7 mg/dL (8.5-10.5); Carbon Dioxide 25 mmol/L (22-29); Chloride 102 mmol/L (98-107); Globulin 2.9 g/dL (1.3-4.6); Glomerular Filtration Rate 127.6 mL/min (90-130); Glucose 124 mg/dL (65-115); Osmolality Calculated 286 mOsm/kg (285-295); Potassium 3.4 mmol/L (3.5-5.1); Sodium 138 mmol/L (136-145); Total Bilirubin 0.3 mg/dL (0.15-1.2); Total Protein 7.5 g/dL (6.6-8.7)
[2021-08-26 17:25] VITALS: BP 112/81; PULSE 81; RESP 19; O2SAT 91
--- NOTE | 2021-08-26 17:36 | ED_ITS ---
HPI - SOB/Dyspnea General: Chief Complaint: Shortness of Breath/Dyspnea Stated Complaint: DIFF BREATHING Time Seen by Provider: 08/26/21 15:56 Source: patient Mode of arrival: ambulatory Limitations: no limitations History of Present Illness: HPI Narrative: 49-year-old female presents to the emergency room complaining of shortness of breath. She denies using oxygen at home. She tells me she has been told she has restrictive lung disease is on Advair and rescue inhaler recently started on a steroid taper and doxycycline. When I came in the room she is on 2 L by nasal cannula she was satting 100%. Turn the oxygen off. Oxygen sats did decrease to to the low 90s. He denies fever sweats chills or productive cough has had an increasing nonproductive cough. MD elicited complaint: shortness of breath and cough Pertinent past history: COPD Onset (ago): week(s) Context: occurred during exertion Timing: constant Severity: moderate Exacerbating factors: exertion, coughing and stress Known history of: COPD Associated symptoms: Deny abdominal pain, chest congestion, chest pain, cough, diaphoresis, dizziness, extremity pain, fever(s), hemoptysis, lightheadedness, myalgias, nausea, orthopnea, palpitations, paresthesias, polydipsia, polyuria, rash, sense of impending doom, syncope or vomiting Treatment prior to arrival: bronchodilator Review of Systems Const: Denies: fever(s) or diaphoresis Card: Denies: chest pain, palpitations, lightheadedness, syncope or orthopnea Resp: Reports: dyspnea, non-productive cough and wheezing; Denies: hemoptysis or chest congestion GI: Denies: abdominal pain, nausea or vomiting Musc: Denies: extremity pain Neuro: Denies: dizziness Endo: Denies: polyuria or polydipsia PFSH ED PFSH: Medical History Anxiety and depression Asthma COPD (chronic obstructive pulmonary disease) Hx of small bowel obstruction Otitis media Psoriasis and similar disorders Sprain and strain of lumbosacral joint/ligament Surgical History History of ear surgery Hx of hysterectomy Family History Other Cancer Diabetes Stroke Social History Smoking and tobacco status: current every day smoker cigarettes Packs smoked per day: 1 Quit status (tobacco): considering quitting Alcohol intake: current Alcohol intake frequency: few times a week Desire information about alcohol rehabilitation?: Yes Marital status: Legally Number of children: 3 Number of grandchildren: 4 Current occupational status: unemployed Physical Exam Const: COMMON NORMALS: no acute distress GENERAL APPEARANCE: cooperative and comfortable ORIENTATION/CONSCIOUSNESS: Yes awake, Yes oriented to person, Yes oriented to place and Yes oriented to time HENMT: COMMON NORMALS: normocephalic, atraumatic and hearing grossly normal bilaterally HEAD & SCALP: normocephalic and atraumatic Neck/C-Spine: COMMON NORMALS: no JVD Resp: COMMON NORMALS: normal respiratory effort, No retractions, No use of accessory muscles and clear to auscultation bilaterally AUSCULTATION: clear to auscultation bilaterally Cardio: COMMON NORMALS: no JVD, regular rate, regular rhythm and No murmurs present (Cardio) RATE: regular rate RHYTHM: regular rhythm GI: COMMON NORMALS: Soft to palpation and No hepatosplenomegaly present AUSCULTATION: Yes normoactive bowel sounds PALPATION: Yes Soft to palpation, No Tenderness to palpation present (GI), No Guarding due to palpation present (GI) and Yes No hepatosplenomegaly present Extremity: COMMON NORMALS: normal to inspection, capillary refill normal, no clubbing, cyanosis or edema, no calf tenderness and no pedal edema Neuro: SENSORIUM/ORIENTATION: Yes oriented to person, Yes oriented to place and Yes oriented to time Skin: COMMON NORMALS: no rashes or lesions noted GENERAL SKIN EXAM: no rashes or lesions noted Course Vital Signs: Vital signs: Vital Signs Temperature 98.0 F 08/26/21 16:02 Pulse Rate 80 08/26/21 17:53 Respiratory Rate 18 08/26/21 17:45 Blood Pressure 138/94 08/26/21 17:43 Pulse Oximetry 90 08/26/21 17:52 MDM - SOB/Dyspnea Medical Decision Making Patient does qualify for oxygen based on home O2 eval in the emergency room, this was arranged for and she is discharged home with supplemental oxygen. We will go ahead and put her on a course of antibiotics as well as prednisone. Follow-up with her primary care doctor for taper by the end of the week. Patient states that she was told she had restrictive lung disease. The diagnosi s used in the chart was COPD. When I mentioned that her COPD was worsening and she expressed concern about the difference. Encouraged her to follow-up with her primary care physician. Also encouraged her to stop smoking completely, as long as he continues to smoke her lung issue will worsen. Discussed with her that the difference is relatively minor and that I felt her treatment course was very appropriate to this point and would not recommend that she change any of her maintenance medications. She can follow-up with her primary care doctor to review this. Medical Records I reviewed the patient's medical records. Lab Data I reviewed the patient's lab results. : 08/26/21 16:20 08/26/21 16:20 Labs/Radiology: Radiology Impressions Chest X-Ray 08/26/21 16:30 IMPRESSION: No acute findings. Laboratory Results WBC 11.8 10^3/uL (4.0-10.0) H 08/26/21 16:20 RBC 5.04 10^6/uL (4.1-5.3) 08/26/21 16:20 Hgb 14.8 g/dL (11.5-15.3) 08/26/21 16:20 Hct 46.5 % (37.0-47.0) 08/26/21 16:20 MCV 92.3 fl (81-99) 08/26/21 16:20 MCH 29.4 pg (28.0-34.0) 08/26/21 16:20 MCHC 31.8 g/dL (30.0-36.0) 08/26/21 16:20 RDW 13.9 % (12.1-15.1) 08/26/21 16:20 Plt Count 325 10^3/cmm (130-400) 08/26/21 16:20 MPV 10.1 fL (7.4-10.4) 08/26/21 16:20 Neut % (Auto) 65.7 % 08/26/21 16:20 Lymph % (Auto) 19.6 % 08/26/21 16:20 [place] % (Auto) 8.3 % 08/26/21 16:20 Eos % (Auto) 4.2 % 08/26/21 16:20 Baso % (Auto) 1.7 % 08/26/21 16:20 Neut # (Auto) 7.73 10^3/uL (1.8-7.7) H 08/26/21 16:20 Lymph # (Auto) 2.3 10^3/uL (0.8-4.8) 08/26/21 16:20 [place] # (Auto) 1.0 10^3/uL (0.2-0.9) H 08/26/21 16:20 Eos # (Auto) 0.5 10^3/uL (0.0-0.8) 08/26/21 16:20 Baso # (Auto) 0.2 10^3/uL (0.0-0.1) H 08/26/21 16:20 Nucleated RBC % (auto) 0 % 08/26/21 16:20 Nucleated RBCs # 0.0 /100WBC 08/26/21 16:20 Sodium 138 mmol/L (136-145) 08/26/21 16:20 Potassium 3.4 mmol/L (3.5-5.1) L 08/26/21 16:20 Chloride 102 mmol/L (98-107) 08/26/21 16:20 Carbon Dioxide 25 mmol/L (22-29) 08/26/21 16:20 Anion Gap 14.4 (5-19) 08/26/21 16:20 BUN 8 mg/dL (6-20) 08/26/21 16:20 Creatinine 0.5 mg/dL (0.5-0.9) 08/26/21 16:20 GFR Calculation 127.6 mL/min (90-130) 08/26/21 16:20 Glucose 124 mg/dL (65-115) H 08/26/21 16:20 Calculated Osmolality 286 mOsm/kg (285-295) 08/26/21 16:20 Calcium 9.7 mg/dL (8.5-10.5) 08/26/21 16:20 Total Bilirubin 0.3 mg/dL (0.15-1.2) 08/26/21 16:20 AST 15 U/L (0-32) 08/26/21 16:20 ALT 13 U/L (0-33) 08/26/21 16:20 Alkaline Phosphatase 91 IU/L (35-105) 08/26/21 16:20 Total Protein 7.5 g/dL (6.6-8.7) 08/26/21 16:20 Albumin 4.6 g/dL (3.5-5.2) 08/26/21 16:20 Globulin 2.9 g/dL (1.3-4.6) 08/26/21 16:20 Discharge Plan Discharge Patient Disposition: Home Clinical Impression: Acute exacerbation of chronic obstructive airways disease Condition: Stable Prescriptions: New prednisone 20 mg tablet 20 mg PO BID 7 Days Qty: 14 0RF ipratropium-albuterol 0.5 mg-3 mg(2.5 mg base)/3 mL solution for nebulization 3 ml inhalation Q4H PRN (Reason: shortness of breath or wheezing) Qty: 90 0RF Rx Instructions: until breathing returns to target peak flow/parameters No Action sertraline 100 mg tablet 100 mg PO DAILY Qty: 30 5RF triamcinolone acetonide 0.1 % ointment 1 applic topical DAILY Qty: 80 3RF Rx Instructions: 340B doxycycline hyclate 100 mg capsule 100 mg PO BID 7 Days Qty: 14 0RF albuterol sulfate 90 mcg/actuation HFA aerosol inhaler 1 inh INHALATION QID PRN (Reason: Shortness Of Breath) Qty: 8.5 3RF Rx Instructions: 340b Advair Diskus 250-50 mcg/dose blister with device 1 inh inhalation Q12H Qty: 60 3RF Rx Instructions: 340B medication albuterol sulfate 2.5 mg /3 mL (0.083 %) solution for nebulization 2.5 mg INHALATION Q4H PRN (Reason: Shortness Of Breath) Qty: 180 3RF Rx Instructions: 340 b Discharge Orders: Discharge ED (Routine); Ordered 08/26/21 Ordered By: Garrett Hunt Other Ambulatory Orders: DME: Oxygen (Order) Location: None Selected Ordered By: Garrett Hunt Referrals: Lane Brown MD [Primary Care Provider] - Patient Instructions: Opioid Safety Coding Level of Care Code ED Chargemaster Analyst for Chg Fwd Exam Comprehensive
[2021-08-26 17:43] VITALS: BP 138/94; PULSE 80; RESP 19; O2SAT 92
[2021-08-26 17:45] VITALS: PULSE 78; RESP 18; O2SAT 95
[2021-08-26] MEDS: ipratropium-albuterol 3 mL Neb INHALATION (17:50)
[2021-08-26 17:52] VITALS: O2SAT 86; O2SAT 90; O2SAT 95
[2021-08-26 17:53] VITALS: PULSE 80
== END 2021-08-26 18:45 | disposition home or self-care (01) ==
PROVIDERS: Emergency Provider Family Medicine; PCP Family Medicine Adult Medicine
DX: J44.1 Chronic obstructive pulmonary disease with (acute) exacerbation (principal); F17.210 Nicotine dependence, cigarettes, uncomplicated
CPT/HCPCS: 71045; 80053; 85025; 94640; 99283

== ENCOUNTER 2021-08-27 20:08 | Inpatient (IN) | payer MEDICAID, SELFPAY ==
[2021-08-27 20:17] VITALS: BP 132/75; PULSE 20; RESP 18; TEMP 35.8; O2SAT 94; BMI 25.4
--- NOTE | 2021-08-27 20:29 | W.ED.SOB ---
HPI - SOB/Dyspnea General: Chief Complaint: Shortness of Breath/Dyspnea Stated Complaint: RESP. DISTRESS Time Seen by Provider: 08/27/21 20:29 History of Present Illness: HPI Narrative: Ms. Johnson is a 55-year-old lady with significant past medical history of COPD though not on baseline oxygen who presents to the emergency department due to worsening shortness of breath and chest discomfort. She reports illness was subacute in onset approximately 2 weeks ago. She has tried home treatments including seeing urgent care/PCP and felt improved. She presented to the emergency department yesterday and steroids were added to her regimen. Despite this, course is worsened. Intensity symptoms is moderate to severe. Denies any new symptoms or infectious symptoms. No other specific changes in health, exacerbating, or alleviating factors identified. Onset (ago): week(s) Context: recent illness Timing: progressively worsening Severity: severe Exacerbating factors: exertion Known history of: COPD Review of Systems General: Reports: 10 or more systems reviewed and unremarkable except in HPI and below PFSH ED PFSH: Medical History Anxiety and depression Asthma COPD (chronic obstructive pulmonary disease) Hx of small bowel obstruction Otitis media Psoriasis and similar disorders Smoking addiction Sprain and strain of lumbosacral joint/ligament Surgical History History of ear surgery Hx of hysterectomy Family History Other Cancer Diabetes Stroke Social History Smoking and tobacco status: current every day smoker cigarettes Packs smoked per day: 1 Quit status (tobacco): considering quitting Alcohol intake: current Alcohol intake frequency: few times a week Desire information about alcohol rehabilitation?: Yes Marital status: Legally Number of children: 3 Number of grandchildren: 4 Current occupational status: unemployed Physical Exam Const: COMMON NORMALS: alert GENERAL APPEARANCE: cooperative, well developed and ill appearing HENMT: COMMON NORMALS: normocephalic and atraumatic HEAD & SCALP: normocephalic and atraumatic THROAT: posterior oropharynx normal Eye: COMMON NORMALS: conjunctivae normal CONJUNCTIVA: Yes conjunctivae normal SCLERA: sclerae normal Neck/C-Spine: COMMON NORMALS: supple GENERAL: Yes trachea midline Resp: EFFORT & INSPECTION: Yes tachypneic AUSCULTATION: rhonchi, wheezes and diminished lung sounds Cardio: COMMON NORMALS: regular rate and regular rhythm RATE: regular rate RHYTHM: regular rhythm GI: COMMON NORMALS: Soft to palpation PALPATION: Yes Soft to palpation and No Tenderness to palpation present (GI) Extremity: GENERAL: Yes normal exam except as noted and No edema Neuro: COMMON NORMALS: moves all extremities SENSORIUM/ORIENTATION: Yes alert and No Orientation impaired Psych: COMMON NORMALS: mental status grossly normal and Normal thought process present THOUGHT PROCESS: Normal thought process present Course ED course: - Patient was seen and evaluated by me at bedside - Patient placed on cardiac monitors, IV access obtained - Initial evaluation notable for somewhat ill appearance, increased respiratory effort and new oxygen requirement - Labs and xrays personally interpreted by me. EKG obtained at 2022 and 2317 personally interpreted by me. Sinus rhythm. No STEMI. - Aspirin for chest pain, analgesia, steroids, albuterol ordered. - Labs notable for leukocytosis, normal hemoglobin. Metabolic panel with mildly decreased bicarb and increased anion gap, glucose elevated but is however serum ketones are negative. Viral studies negative. Delta troponin positive. Lovenox given - Imaging notable for no lobar consolidation or pneumothorax - Upon serial reexamination after treatment the patient was similar to mildly improved - Based on patient history, evaluation, and testing as interpreted the most likely cause of the patient's condition is NSTEMI, shortness breath - The results of ED evaluation were discussed with the patient including plan for admission due to requirement for level of care not available if discharged to prevent significant worsening/deterioration. - Admitting service was contacted and Dr Wilson with thehospitalist service agreed to admit the patient - Patient was admitted without further deterioration or significant events. Note: Click bubbles or prepopulated escalante in note writing are used for assistance with data collection and billing and are inherently more limited than narrative and other text portions of this note. Please use narrative for additional clinical history and defer to narrative/free test for any case of contradictory information. If information appears in only free text or click bubble it should be considered present or absent as reported. Please contact note automobile and property underwriter for clarifications of clinical information or contradictory information. MDM is a brief summary, contradictory or erroneous seeming information should be clarified and full note should be reviewed. Vital Signs: Vital signs: Vital Signs Temperature 98.3 F 08/30/21 11:42 Pulse Rate 70 08/30/21 11:42 Respiratory Rate 24 H 08/30/21 11:42 Blood Pressure 109/64 08/30/21 11:42 Pulse Oximetry 90 08/30/21 11:42 MDM - SOB/Dyspnea Medical Decision Making 55-year-old lady with COPD presenting with 2 weeks of shortness of breath that has worsened despite outpatient therapy and now chest pain. Patient found to have NSTEMI. Admitted for further management. Medical Records I reviewed the patient's medical records. Lab Data I reviewed the patient's lab results. : 08/30/21 04:53 08/30/21 04:53 Labs/Radiology: Radiology Impressions Chest X-Ray 08/27/21 20:44 IMPRESSION: No acute findings. Chest CTA 08/28/21 01:22 IMPRESSION: No findings of aortic dissection. Mild ground-glass pulmonary infiltrates are suggested bilaterally can represent edema or infectious/inflammatory process. 5 mm nodule left apex; for patients at low risk (minimal or absent history of smoking and of other known risk factors), no routine follow-up is indicated. For patients at high risk (history of smoking or of other known risk factors), consider optional CT Chest at 12 months. (Reference: Zoey) References: Zoey Gerber, et al. Guidelines for Management of Incidental Pulmonary Nodules Detected on CT Images: From the Fleischner Society 2017. Radiology. 2017;284(1):228-243. Laboratory Results WBC 14.3 10^3/uL (4.0-10.0) H 08/27/21 19:45 RBC 4.89 10^6/uL (4.1-5.3) 08/27/21 19:45 Hgb 14.5 g/dL (11.5-15.3) 08/27/21 19:45 Hct 46.9 % (37.0-47.0) 08/27/21 19:45 MCV 95.9 fl (81-99) 08/27/21 19:45 MCH 29.7 pg (28.0-34.0) 08/27/21 19:45 MCHC 30.9 g/dL (30.0-36.0) 08/27/21 19:45 RDW 14.0 % (12.1-15.1) 08/27/21 19:45 Plt Count 436 10^3/cmm (130-400) H D 08/27/21 19:45 MPV 10.6 fL (7.4-10.4) H 08/27/21 19:45 Neut % (Auto) 61.0 % 08/27/21 19:45 Lymph % (Auto) 27.2 % 08/27/21 19:45 [place] % (Auto) 4.7 % 08/27/21 19:45 Eos % (Auto) 4.8 % 08/27/21 19:45 Baso % (Auto) 1.7 % 08/27/21 19:45 Neut # (Auto) 8.73 10^3/uL (1.8-7.7) H 08/27/21 19:45 Lymph # (Auto) 3.9 10^3/uL (0.8-4.8) 08/27/21 19:45 [place] # (Auto) 0.7 10^3/uL (0.2-0.9) 08/27/21 19:45 Eos # (Auto) 0.7 10^3/uL (0.0-0.8) 08/27/21 19:45 Baso # (Auto) 0.2 10^3/uL (0.0-0.1) H 08/27/21 19:45 Nucleated RBC % (auto) 0 % 08/27/21 19:45 Nucleated RBCs # 0.0 /100WBC 08/27/21 19:45 D-Dimer 0.37 ug/mIFEU (0-0.59) 08/27/21 19:45 Sodium 136 mmol/L (136-145) 08/28/21 01:26 Potassium 3.8 mmol/L (3.5-5.1) 08/28/21 01:26 Chloride 104 mmol/L (98-107) 08/28/21 01:26 Carbon Dioxide 19 mmol/L (22-29) L 08/28/21 01:26 Anion Gap 16.8 (5-19) 08/28/21 01:26 BUN 14 mg/dL (6-20) 08/28/21 01:26 Creatinine 0.4 mg/dL (0.5-0.9) L 08/28/21 01:26 GFR Calculation 165.1 mL/min (90-130) H 08/28/21:26 Glucose 164 mg/dL (65-115) H 08/28/21:26 Calculated Osmolality 286 mOsm/kg (285-295) 08/28/21:26 Lactate 1.1 mmol/L (0.5-2.2) 08/28/21:26 Calcium 9.4 mg/dL (8.5-10.5) 08/28/21:26 Total Bilirubin 0.2 mg/dL (0.15-1.2) 08/27/21 19:45 AST 23 U/L (0-32) 08/27/21 19:45 ALT 18 U/L (0-33) 08/27/21 19:45 Alkaline Phosphatase 94 IU/L (35-105) 08/27/21 19:45 Troponin T Baseline 6 ng/L (0-10) 08/27/21 19:45 Troponin T 120 Minute 144.7 ng/L (0-10) H 08/27/21 21:45 Delta Troponin T 138.7 ABS# (0-10) H* 08/27/21 21:45 Troponin T Hi Sens 6Hr 174.7 ng/L (0-10) H 08/28/21 01:26 Troponin T Hi Sens 6Hr Delta 168.7 ng/L (0-12) H* 08/28/21 01:26 NT-Pro-B Natriuret Pep 42 pg/mL (0-125) 08/27/21 19:45 Total Protein 7.4 g/dL (6.6-8.7) 08/27/21 19:45 Albumin 4.5 g/dL (3.5-5.2) 08/27/21 19:45 Globulin 2.9 g/dL (1.3-4.6) 08/27/21 19:45 Triglycerides 48 mg/dL (0-150) 08/28/21:26 Cholesterol 213 mg/dL (0-200) H 08/28/21 01:26 LDL Cholesterol, Calc 148 mg/dL (50-129) H 08/28/21:26 HDL Cholesterol 55 mg/dL (60-100) L 03/31/22 01:26 LDL/HDL Ratio 2.69 RATIO (0.00-3.22) 08/28/21 01:26 Cholesterol/HDL Ratio 3.87 mg/dL (0.0-4.40) 08/28/21 01:26 Procalcitonin 0.08 ng/mL (0-0.5) 08/28/21 01:26 Random Cortisol 14.59 ug/dL (2.47-19.5) 08/28/21 01:26 Urine Color Yellow (Yellow) 08/28/21 00:18 Urine Appearance Clear (CLEAR) 08/28/21 00:18 Urine pH 6 (5-7) 08/28/21 00:18 Ur Specific [place] 1.020 (1.005-1.030) 08/28/21 00:18 Urine Protein Neg (Negative) 08/28/21 00:18 Urine Glucose (UA) 2+ (Normal) H 08/28/21 00:18 Urine Ketones Negative (Negative) 08/28/21 00:18 Urine Blood Neg (Negative) 08/28/21 00:18 Urine Nitrate Negative (Negative) 08/28/21 00:18 Urine Bilirubin Neg (Negative) 08/28/21 00:18 Urine Urobilinogen Norm mg/dL (Negative) 08/28/21 00:18 Ur Leukocyte Esterase Negative (Negative) 08/28/21 00:18 Salicylates 3.2 mg/dL (3-10) 08/28/21 01:26 Serum Ketones Negative (Negative) 08/27/21 19:45 Coronavirus 229E (PCR) Not detected (NOT DETECT) 08/27/21 20:57 SARS-CoV-2 (PCR) Not detected (NOT DETECT) 08/27/21 20:57 Discharge Plan Discharge Patient Disposition: Placed in Observation Admit Provider: Herb Wilson Clinical Impression: Non-ST elevation [place] (NSTEMI), Chest pain, Shortness of breath Discharge Diet: Regular Discharge Activity: Resume usual activity Coding Level of Care Code ED Pot Builder for Susie Almeida
[2021-08-27 20:33] VITALS: BP 118/82; PULSE 89; RESP 23; O2SAT 95
--- NOTE | 2021-08-27 20:44 | XRR_ITS ---
PROCEDURE INFORMATION: Exam: XR Chest Exam date and time: 08/27/2021 9:03 PM Age: 55 years old Clinical indication: Shortness of breath; Additional info: SOB TECHNIQUE: Imaging protocol: XR of the chest. Views: 1 view. COMPARISON: CR XR chest 1V portable [id number] 08/26/2021 4:42 PM and March 2020 FINDINGS: Lungs: Unremarkable. No consolidation. Pleural spaces: Unremarkable. No pleural effusion. No pneumothorax. Heart/Mediastinum: Unremarkable. No cardiomegaly. Bones/joints: Small high density projected at the lower outer right 2nd rib appears similar to findings on 04/12/2020 chest radiograph. XR/XR chest 1V portable [id number] IMPRESSION: No acute findings.
--- NOTE | 2021-08-27 20:44 | ECG_ITS ---
[facility] Test Date: 2021-08-27 Pat Name: Andra Johnson Department: Room: Gender: Female Flap Maker: : 1965 Requested By: Nitin Russell Order Number: [id number] Nona MD: Julia Ramos M.D. Measurements Intervals [place] Rate: 84 P: 80 DE: 149 QRS: 81 QRSD: 97 T: 80 QT: 377 QTc: 446 Interpretive Statements SINUS RHYTHM POSSIBLE LEFT ATRIAL ENLARGEMENT [-0.1mV P-WAVE IN V1/V2] MODERATE ST DEPRESSION [0.05+ mV ST DEPRESSION] No previous ECG available for comparison Electronically Signed On 08-29-2021 10:46:35 CDT by Julia Ramos M.D. [id number]
[2021-08-27 20:53] LABS: Basophils # 0.2 10^3/uL (0.0-0.1); Basophils % 1.7 %; Eosinophils # 0.7 10^3/uL (0.0-0.8); Eosinophils % 4.8 %; Hematocrit 46.9 % (37.0-47.0); Hemoglobin 14.5 g/dL (11.5-15.3); Lymphocytes # 3.9 10^3/uL (0.8-4.8); Lymphocytes % 27.2 %; Mean Corpuscular HGB Conc 30.9 g/dL (30.0-36.0); Mean Corpuscular Hemoglobin 29.7 pg (28.0-34.0); Mean Corpuscular Volume 95.9 fl (81-99); Mean Platelet Volume 10.6 fL (7.4-10.4); Monocytes # 0.7 10^3/uL (0.2-0.9); Monocytes % 4.7 %; Neutrophils # 8.73 10^3/uL (1.8-7.7); Nucleated Red Blood Cells % 0 %; Platelet Count 436 10^3/cmm (130-400); Red Blood Count 4.89 10^6/uL (4.1-5.3); White Blood Count 14.3 10^3/uL (4.0-10.0)
[2021-08-27 21:22] LABS: D Dimer 0.37 ug/mIFEU (0-0.59)
[2021-08-27 21:33] LABS: Alanine Aminotransferase 18 U/L (0-33); Albumin Level 4.5 g/dL (3.5-5.2); Alkaline Phosphatase 94 IU/L (35-105); Anion Gap 21.6 (5-19); Aspartate Amino Transferase 23 U/L (0-32); Blood Urea Nitrogen 12 mg/dL (6-20); Calcium 9.7 mg/dL (8.5-10.5); Carbon Dioxide 18 mmol/L (22-29); Chloride 100 mmol/L (98-107); Globulin 2.9 g/dL (1.3-4.6); Glomerular Filtration Rate 86.6 mL/min (90-130); Glucose 302 mg/dL (65-115); NT Pro B Type Natriuretic Pept 42 pg/mL (0-125); Osmolality Calculated 293 mOsm/kg (285-295); Potassium 3.6 mmol/L (3.5-5.1); Sodium 136 mmol/L (136-145); Total Bilirubin 0.2 mg/dL (0.15-1.2); Total Protein 7.4 g/dL (6.6-8.7)
[2021-08-27 21:47] VITALS: BP 103/74; PULSE 95; RESP 18; O2SAT 93
[2021-08-27] MEDS: ipratropium-albuterol 3 mL Neb INHALATION (22:04)
[2021-08-27 22:05] VITALS: PULSE 89; RESP 16; O2SAT 93
[2021-08-27 22:06] VITALS: PULSE 88; RESP 18; O2SAT 93
[2021-08-27 22:24] LABS: Troponin(5th) Baseline 6 ng/L (0-10)
[2021-08-27 22:34] LABS: Troponin 5 2HR 144.7 ng/L (0-10); Troponin 5 2HR Delta 138.7 ABS# (0-10)
--- NOTE | 2021-08-27 22:44 | ECG_ITS ---
[facility] Test Date: 2021-08-27 Pat Name: Andra Johnson Department: Room: Gender: Female Templer Head: : 1965 Requested By: Nitin Russell Order Number: [id number] Nona MD: Julia Ramos M.D. Measurements Intervals [place] Rate: 83 P: 81 TN: 160 QRS: 80 QRSD: 99 T: 75 QT: 403 QTc: 474 Interpretive Statements SINUS RHYTHM POSSIBLE LEFT ATRIAL ENLARGEMENT [-0.1mV P-WAVE IN V1/V2] MINIMAL ST DEPRESSION [0.025+ mV ST DEPRESSION] Compared to ECG 08/27/2021 20:23:48 No significant changes Electronically Signed On 08-29-2021 13:46:03 CDT by Julia Ramos M.D. [id number]
[2021-08-27] MEDS: aspirin 81 mg Chew Tablet 324 MG PO (22:58)
[2021-08-27 22:59] VITALS: RESP 20; O2SAT 95
[2021-08-27] MEDS: fentaNYL 50 mcg/mL INJ 2mL IVP (22:59)
[2021-08-27] MEDS: enoxaparin 80 mg/0.8 mL Syringe 65 MG SUBCUT (23:04)
[2021-08-27 23:14] LABS: Adenovirus Not Detected (NOT DETECT); Chlamydia Pneumoniae Not Detected (NOT DETECT); Coronavirus 229E,HKU1,NL63,OC4 Not Detected (NOT DETECT); Human Metapneumovirus Not Detected (NOT DETECT); Human Rhinovirus/Enterovirus Not Detected (NOT DETECT); Influenza A Not Detected (NOT DETECT); Influenza A H1 Not Detected (NOT DETECT); Influenza A H1-2009 Not Detected (NOT DETECT); Influenza A H3 Not Detected (NOT DETECT); Influenza B Not Detected (NOT DETECT); Mycoplasma Pneumoniae Not Detected (NOT DETECT); Parainfluenza Virus Type 1 Not Detected (NOT DETECT); Parainfluenza Virus Type 2 Not Detected (NOT DETECT); Parainfluenza Virus Type 3 Not Detected (NOT DETECT); Parainfluenza Virus Type 4 Not Detected (NOT DETECT); Respiratory Syncytial Virus A Not Detected (NOT DETECT); Respiratory Syncytial Virus B Not Detected (NOT DETECT); SARS-COV-2 Not Detected (NOT DETECT)
[2021-08-27 23:38] LABS: Ketone (Acetest) Serum Negative (Negative)
[2021-08-28] VITALS (75 sets, daily range): BP systolic 82–122; BP diastolic 56–75; PULSE 72–103; RESP 14–39; TEMP 36.3–36.8; O2SAT 91–96
--- NOTE | 2021-08-28 01:10 | P.HP_ITS ---
Providers/Chief Complaint Admitting Physician: Herb Wilson Primary Care Provider: Lane Brown MD Chief Complaint: RESP. DISTRESS History of Present Illness 55-year-old lady with smoking addiction, asthma, reported COPD, has been experiencing chest discomfort for over the past 2 weeks, reports also intermittent bothersome cough, shortness of breath. Chest discomfort is like severe pressure, across the entire chest. He reports significantly worse with exertion making her stop to rest. Denies any radiation. With rest symptoms are getting somewhat better, but today she felt worse, with radiation downward towards the lower chest on both sides. She had just finished a course of doxycycline and prednisone on outpatient basis. In ER she is noted with new oxygen requirement, 3 L. Noted with leukocytosis 14.3. Platelets 436,000. Bicarb 18, anion gap 21.6. Serum ketones negative. Coronavirus PCR negative. D-dimer not elevated. Chest x-ray unremarkable. She is noted to have troponin elevation, baseline troponin was normal at 6, 2- hour troponin 144.7. NT proBNP is normal. EKG with Q waves inferiorly. Review of Systems Const: Denies: fever(s), chills, body aches or malaise Eyes: Denies: change in vision, eye discomfort or eye redness ENMT: Denies: throat pain, oral sores or ear or mastoid pain Card: Reports: chest pain and dyspnea on exertion; Denies: edema or pre-syncope Resp: Reports: dyspnea and non-productive cough; Denies: productive cough, change in phlegm color or hemoptysis GI: Denies: abdominal pain, nausea, vomiting, diarrhea, constipation, hematochezia or melena : Denies: flank pain, urinary frequency or hematuria Musc: Denies: back pain, joint swelling or joint redness Skin/Breast: Denies: rash or new lesions Neuro: Denies: headache(s), numbness in extremities, weakness in extremities, dizziness, confusion or seizure-like activity Endo: Denies: polyuria or polydipsia Iftikhar/Lymph: Denies: easy bleeding or tender lymph nodes All/Imm: Denies: urticaria or tongue swelling Medications/Allergies Home Medications Medication Instructions Recorded Confirmed Last Taken Type triamcinolone acetonide 0.1 % 1 applic TOPICAL DAILY #80 g 11/07/20 06/12/21 Unknown Rx topical ointment sertraline 100 mg tablet 100 mg PO DAILY #30 tab 02/06/21 06/12/21 Unknown Rx albuterol sulfate 90 mcg/actuation 1 inh INHALATION QID PRN #8.5 g 05/02/21 06/12/21 Unknown Rx aerosol inhaler fluticasone 250 mcg-salmeterol 50 1 inh INHALATION Q12H #60 ea 05/02/21 06/12/21 Unknown Rx mcg/dose blistr powdr for inhalation (Advair Diskus) doxycycline hyclate 100 mg capsule 100 mg PO BID 7 Days #14 cap 08/22/2107/30 Unknown Rx albuterol sulfate 2.5 mg (3 mL) INHALATION Q4H PRN 08/26/21 Unknown Rx #180 ml ipratropium 0.5 mg-albuterol 3 mg 3 ml INHALATION Q4H PRN #90 ml 08/26/21 Unknown Rx (2.5 mg base)/3 mL nebulization soln prednisone 20 mg tablet 20 mg PO BID 7 Days #14 tab 08/26/21 Unknown Rx Allergies Allergy/AdvReac Type Severity Reaction Status Date / Time Penicillins Allergy ALGY-Swell Verified 08/22/21 11:12 Lip/Tongue/Throat PFSH Acute PFSH: Medical History (Updated 08/28/21 @ 01:32 by Herb Wilson MD) Anxiety and depression Asthma COPD (chronic obstructive pulmonary disease) Hx of small bowel obstruction Otitis media Psoriasis and similar disorders Smoking addiction Sprain and strain of lumbosacral joint/ligament Surgical History History of ear surgery Hx of hysterectomy Family History Other Cancer Diabetes Stroke Social History Smoking and tobacco status: current every day smoker cigarettes Packs smoked per day: 1 Quit status (tobacco): considering quitting Alcohol intake: current Alcohol intake frequency: few times a week Desire information about alcohol rehabilitation?: Yes Marital status: Legally Number of children: 3 Number of grandchildren: 4 Current occupational status: unemployed Vitals/I&O/Wt Last Vital Signs Temp 96.4 F L 08/27/21 20:17 Pulse 88 08/27/21 22:06 Resp 20 H 08/27/21 22:59 BP 103/74 08/27/21 21:47 Pulse Ox 95 08/27/21 22:59 Weight last 48 hrs Weight 63.14 kg Physical Exam Const: COMMON NORMALS: alert GENERAL APPEARANCE: cooperative ORIENTATION/CONSCIOUSNESS: Yes awake HENMT: COMMON NORMALS: normocephalic, EAC's normal, Normal external nose present and moist oral mucous membranes HEAD & SCALP: normocephalic NOSE: Normal external nose present EXTERNAL AUDITORY CANAL: EAC's normal Neck/C-Spine: COMMON NORMALS: no meningeal signs Chest: CHEST: Yes Symmetrical chest wall rise Resp: AUSCULTATION: wheezes and diminished lung sounds Cardio: COMMON NORMALS: regular rate, regular rhythm and No murmurs present (Cardio) RATE: regular rate RHYTHM: regular rhythm GI: COMMON NORMALS: Normal to inspection, nondistended, normoactive bowel sounds present, Soft to palpation and non-tender PALPATION: Yes Soft to palpation Extremity: COMMON NORMALS: no pedal edema Neuro: COMMON NORMALS: moves all extremities SENSORIUM/ORIENTATION: Yes a lert MENINGEAL SIGNS: Yes no meningeal signs Psych: COMMON NORMALS: mental status grossly normal Skin: COMMON NORMALS: no wounds RASHES: no rashes Data : 08/27/21 19:45 08/27/21 19:45 A&P Assessment and plan (1) Non-ST elevation CT (NSTEMI): Chest pain, troponin elevation with positive delta. Q waves noted inferiorly on EKG. Continue aspirin, Lovenox. Blood pressure is low, unable to add beta-jocelyne at this time. Assess TTE. Check lipid profile. Pending cardiology assessment. Status: Acute (2) Hypotension: Blood pressure soft, and currently lower at 86/56. Bolus 500 mL LR. With chest pain, troponin ovation will assess CTA to exclude dissection. Check serum cortisol. Status: Acute (3) Acute exacerbation of chronic obstructive airways disease: Continue IV steroid. Does not appear to have phlegm production. Will check procalcitonin, consider adding antibiotic. Breathing treatments. Oxygen support, 3 L, wean down as tolerating. D-dimer not elevated. Status: Acute (4) Asthma: Status: Acute (5) Chest pain: As above Status: Acute (6) Smoking addiction: States that she is quitting. Encourage cessation. Nicotine replacement as needed. Status: Acute (7) Increased anion gap metabolic acidosis: Serum ketones negative. Check lactic acid. Status: Acute Plan History of anxiety and depression Attestations Medical Necessity Statement*: Admission of over 2 midnights is anticipated for assessment of management of NSTEMI, COPD exacerbation, hypotension. Coding Level of Care Code Acute Surgical Cors[facility] for [facility] Juan Pablo Diagnoses Non-ST elevation CT (NSTEMI) I21.4 Acute exacerbation of chronic obstructive airways disease J44.1 Asthma J45.909 Chest pain R07.9 Hypotension I95.9 Smoking addiction F17.200 Increased anion gap metabolic acidosis E87.2
[2021-08-28] MEDS: lactated ringers 500 ML 999 ML IV (01:20)
--- NOTE | 2021-08-28 01:22 | CTR_ITS ---
PROCEDURE INFORMATION: Exam: CTA Chest With Contrast Exam date and time: 08/28/2021 1:36 AM Age: 55 years old Clinical indication: Pain and abnormal findings; Abnormal diagnostic tests; Other: Elevated troponin; Chest pressure; Patient HX: Patient C/O chest pain. Troponin of 144. Hypertensive on monitor. ; Additional info: Chest pain, trop elevation, hotn, assess for dissection TECHNIQUE: Imaging protocol: Computed tomographic angiography of the chest with contrast. 3D rendering (Not supervised by radiologist): MIP and/or 3D reconstructed images were created by the technologist. Radiation optimization: All CT scans at this facility use at least one of these dose optimization techniques: automated exposure control; mA and/or kV adjustment per patient size (includes targeted exams where dose is matched to clinical indication); or iterative reconstruction. Contrast material: OMNI 350; Contrast volume: 95 ml; Contrast route: INTRAVENOUS (IV); COMPARISON: CR (CHEST, ) 08/27/2021 9:03 PM RADIATION DOSE METRICS: Total DLP (mGy-cm): 802.01 FINDINGS: Pulmonary arteries: Normal. No pulmonary emboli. Aorta: No aortic aneurysm. No aortic dissection. Lungs: Mild ground-glass pulmonary infiltrates are suggested bilaterally can represent edema or infectious/inflammatory process. 5 mm nodule left lung apex series 5, image 12 and series 602, image 23. Pleural spaces: No pneumothorax. No pleural effusion. Heart: No cardiomegaly. No pericardial effusion. Lymph nodes: No enlarged lymph nodes. Bones/joints: No acute fracture. Soft tissues: Unremarkable. CT/CT angio chest 95825 IMPRESSION: No findings of aortic dissection. Mild ground-glass pulmonary infiltrates are suggested bilaterally can represent edema or infectious/inflammatory process. 5 mm nodule left apex; for patients at low risk (minimal or absent history of smoking and of other known risk factors), no routine follow-up is indicated. For patients at high risk (history of smoking or of other known risk factors), consider optional CT Chest at 12 months. (Reference: Zoey) References: Zoey Gerber et al. Guidelines for Management of Incidental Pulmonary Nodules Detected on CT Images: From the Fleischner Society 2017. Radiology. 2017;284(1):228-243.
[2021-08-28 01:30] LABS: Add Urine Microscopic? NO; Charge for UA Resulting for Rev
[2021-08-28 01:44] LABS: Bilirubin Urine Neg (Negative); Blood Urine Neg (Negative); Glucose Urine UA 2+ (Normal); Ketones Urine Negative (Negative); Leukocyte Esterase Urine Negative (Negative); Nitrate Urine Negative (Negative); Protein Urine Neg (Negative); Urine Appearance Clear (CLEAR); Urine Color Yellow (Yellow); Urobilinogen Urine Norm (Negative); pH Urine 6 (5-7)
[2021-08-28] MEDS: iohexol 350 mg/mL 100 mL Btl IV (01:44)
[2021-08-28 01:47] LABS: Lactate (Lactic Acid level) 1.1 mmol/L (0.5-2.2)
[2021-08-28 01:57] LABS: Cortisol Random 14.59 ug/dL (2.47-19.5)
[2021-08-28 02:18] LABS: Troponin 5 6HR 174.7 ng/L (0-10); Troponin 5 6HR Delta 168.7 ng/L (0-12)
--- NOTE | 2021-08-28 02:19 | USCV_ITS ---
Ankle-Brachial Index ElizabethMaster englen Age: 55 Gender: F : 1965 Exam Date: 08/28/2021 02:45 Ordering Phys: Herb Wilson MD Technologist: Philip Mata Exam Location[place] [facility] [place] Indication: NSTEMI BP: 89 / 67 HR: 85 Rhythm: Sinus Technical Quality: Adequate MEASUREMENTS (Male / Female) Normal Values 2D ECHO LV Diastolic Diameter PLAX 4.3 cm 4.2 - 5.9 / 3.9 - 5.3 cm LV Systolic Diameter PLAX 3.5 cm IVS Diastolic Thickness 1.1 cm 0.6 - 1.0 / 0.6 - 0.9 cm IVS Systolic Thickness 1.6 cm LVPW Diastolic Thickness 1.0 cm 0.6 - 1.0 / 0.6 - 0.9 cm LVPW Systolic Thickness 1.3 cm LVOT Diameter 1.9 cm LV Ejection Fraction 2D Teich 37.4 % LV Ejection Fraction MOD 2C 46.7 % LV Ejection Fraction 2C AL 49.8 % LA Diameter 2.8 cm LA Width 3.0 cm LA Height 4.1 cm RA Width 2.9 cm RA Height 2.8 cm Aorta at Sinotubular Diameter 1.9 cm M-MODE Aortic Annulus Diameter 2.5 cm LA Ao Ratio MM 1.4 MV E Point Septal Separation 1.0 cm DOPPLER AV Peak Velocity 138.0 cm/s LVOT Peak Velocity 135.0 cm/s AV Area Cont Eq vti 2.6 cm squared AV Area Cont Eq pk 2.9 cm squared MV Peak Velocity 95.0 cm/s MV Area PHT 5.6 cm squared Mitral E to A Ratio 1.4 MV E' Velocity 52.5 cm/s Mitral E to MV E' Ratio 12.1 Mitral E to LV E' Lateral Ratio 11.3 Mitral E to LV E' Septal Ratio 13.3 TR Peak Velocity 224.9 cm/s TR Peak Gradient 20.2 mmHg TR Mean Velocity 161.4 cm/s TR Mean Gradient 12.8 mmHg TR Velocity Time Integral 58.4 cm Right Atrial Pressure 10.0 mmHg Pulmonary Artery Systolic Pressu 30.2 mmHg PV Peak Velocity 88.0 cm/s RV Acceleration Time 0.1 s RV Ejection Time 0.3 s RV AcT/ET 0.5 FINDINGS Left Ventricle Normal left ventricular cavity size. Low normal left ventricular systolic function. Left ventricular ejection fraction is estimated at 55 %. There is mild hypokinesis of basal to mid inferior page. Normal diastolic function. Right Ventricle Normal right ventricular size and systolic function. Normal right ventricular systolic function. Right Atrium Normal right atrial size. Left Atrium Normal left atrial size. Mitral Valve Structurally normal mitral valve. No mitral valve stenosis. Trace mitral valve regurgitation. Aortic Valve Aortic valve not well visualized. No aortic valve stenosis. No aortic valve regurgitation. Tricuspid Valve Structurally normal tricuspid valve. Trace tricuspid valve regurgitation. Pulmonic Valve Pulmonic valve not well visualized. Pericardium No pericardial effusion. Aorta Normal size aortic root and proximal ascending aorta. Small inferior vena cava with normal respiratory variation. CONCLUSIONS 1. Normal left ventricular cavity size. Low normal left ventricular systolic function. Left ventricular ejection fraction is estimated at 55 %. There is mild hypokinesis of basal to mid inferior page. Normal diastolic function. 2. No signicant valvular abnormality. 3. No prior similar studies to compare. Saumya Bajwa MD (Electronically Signed) Final Date: 28 August 2021 11:42 S
--- NOTE | 2021-08-28 02:44 | ECG_ITS ---
[facility] Test Date: 2021-08-28 Pat Name: Andra Johnson Department: Room: Gender: Female Nuclear Technologist: : 1965 Requested By: Nitin Russell Order Number: [id number] Nona MD: Julia Ramos M.D. Measurements Intervals [place] Rate: 79 P: 73 IL: 112 QRS: 81 QRSD: 110 T: 76 QT: 419 QTc: 481 Interpretive Statements SINUS RHYTHM WITH SHORT IL INTERVAL POSSIBLE INFERIOR MYOCARDIAL INFARCTION , OF INDETERMINATE AGE [30 ms Q WAVE IN II/aVF] Compared to ECG 08/27/2021 23:18:20 Short IL interval now present Myocardial infarct finding now present ST (T wave) deviation no longer present Electronically Signed On 08-29-2021 13:46:32 CDT by Julia Ramos M.D. [id number]
[2021-08-28] MEDS: pantoprazole 40 mg SDV IVP (02:47)
[2021-08-28 02:51] LABS: Chol HDL Ratio 3.87 mg/dL (0.0-4.40); Cholesterol 213 mg/dL (0-200); HDL Cholesterol 55 mg/dL (60-100); LDL Cholesterol Calculated 148 mg/dL (50-129); LDL HDL Ratio 2.69 RATIO (0.00-3.22); Triglycerides 48 mg/dL (0-150)
[2021-08-28 02:57] LABS: Procalcitonin 0.08 ng/mL (0-0.5)
--- NOTE | 2021-08-28 03:04 | PC.NURSE ---
Admitted from ER via stretcher. No reports of chest pain at present time. Respirations unlabored with wheezing noted to bilat upper lung escalante. O2 at 2L NC. Echocardiogram currently in progress.
[2021-08-28] MEDS: ipratropium-albuterol 3 mL Neb INHALATION ×4 (03:26→20:20)
[2021-08-28 06:05] LABS: Salicylate 3.2 mg/dL (3-10)
--- NOTE | 2021-08-28 08:57 | P.CONIM_ITS ---
Providers/Reason For Consult Consulting Physician/Specialty*: Dr. Bajwa, cardiology Reason for Consult*: Elevated troponin Attending Physician: Rogelio Lundberg MD Primary Care Provider: Lane Brown MD History of Present Illness History of Present Illness Andra Johnson is a 55 year old female with past medical history asthma/COPD, chronic active smoker (1-2 PPD for last 40 years), anxiety/depression, family history of coronary artery disease (brother with heart attack in his 50s), another brother with stroke and father in his 50s with blood clots. She presented with complaints of chest discomfort as well as intermittent shortness of breath for 2 weeks. She started having chills with shortness of breath along with some pain in her chest which she describes as mostly with coughing and testing was audible from her chest but more prominent in 4 points on the chest (upper right and left chest and bilateral sides). She was in the ER the night before and was discharged home. Yesterday she developed chest pain described as crushing and pressure-like and 10 on 10 in intensity along with shortness of breath that was not relieved with her inhaler and hence sist er-in-law called EMS. Patient does not usually check her blood pressure or pulse oximetry but EMS vitals were within normal range patient and family. At baseline troponin T was 6 that increased to 170s at 6 hours. EKG with no significant ST-T wave changes. At the time of evaluation patient is chest pain-free. Review of Systems Const: Denies: fever(s), chills, body aches or malaise Eyes: Denies: change in vision, eye discomfort or eye redness ENMT: Denies: throat pain, oral sores or ear or mastoid pain Card: Reports: chest pain and dyspnea on exertion; Denies: edema or pre-syncope Resp: Reports: dyspnea and non-productive cough; Denies: productive cough, change in phlegm color or hemoptysis GI: Denies: abdominal pain, nausea, vomiting, diarrhea, constipation, hematochezia or melena : Denies: flank pain, urinary frequency or hematuria Musc: Denies: back pain, joint swelling or joint redness Skin/Breast: Denies: rash or new lesions Neuro: Reports: other (syncopal episodes at home); Denies: headache(s), numbness in extremities, weakness in extremities, dizziness, confusion or seizure-like activity Psych: Reports: anxiety Endo: Denies: polyuria or polydipsia Iftikhar/Lymph: Denies: easy bleeding or tender lymph nodes All/Imm: Denies: urticaria or tongue swelling Medications/Allergies Home Medications Medication Instructions Recorded Confirmed Last Taken Type albuterol sulfate 90 mcg/actuation 1 inh INHALATION QID PRN #8.5 g 05/02/21 08/28/21 Unknown Rx aerosol inhaler fluticasone 250 mcg-salmeterol 50 1 inh INHALATION Q12H #60 ea 05/02/21 08/28/21 08/27/21 Rx mcg/dose blistr powdr for inhalation (Advair Diskus) doxycycline hyclate 100 mg capsule 100 mg PO BID 7 Days #14 cap 08/22/21 08/28/21 08/27/21 Rx albuterol sulfate 2.5 mg (3 mL) INHALATION Q4H PRN 08/26/21 08/28/21 Unknown Rx #180 ml ipratropium 0.5 mg-albuterol 3 mg 3 ml INHALATION Q4H PRN #90 ml 08/26/21 08/28/21 08/27/21 Rx (2.5 mg base)/3 mL nebulization soln prednisone 20 mg tablet 20 mg PO BID 7 Days #14 tab 08/26/21 08/28/21 08/27/21 Rx sertraline 100 mg tablet 100 mg PO DAILY PRN 08/28/21 08/28/21 08/14/21 History Allergies Allergy/AdvReac Type Severity Reaction Status Date / Time Penicillins Allergy ALGY-Swell Verified 08/28/21 08:54 Lip/Tongue/Throat Current Medications Generic Name Dose Route Start Last Admin Trade Name Freq PRN Reason Stop Dose Admin Albuterol/Ipratropium 3 ml 08/28/21 03:00 08/28/21 08:02 Ipratropium-Albuterol 3 Ml Neb INHALATION 3 ml Q6H.RESPIRATORY RYDER Administration Methylprednisolone Sodium Succinate 60 mg 08/28/21 04:00 08/28/21 04:00 Methylprednisolone Sod Succ 125 Mg/2 Ml Inj IVP 60 mg Q6H RYDER Administration Pantoprazole Sodium 40 mg 08/28/21 02:19 08/28/21 02:47 Pantoprazole 40 Mg Sdv IVP 40 mg Q24H RYDER Administration PFSH Acute PFSH: Medical History Anxiety and depression Asthma COPD (chronic obstructive pulmonary disease) Hx of small bowel obstruction Otitis media Psoriasis and similar disorders Smoking addiction Sprain and strain of lumbosacral joint/ligament Surgical History History of ear surgery Hx of hysterectomy Family History Other Cancer Diabetes Stroke Social History Smoking and tobacco status: current every day smoker cigarettes Packs smoked per day: 1 Quit status (tobacco): considering quitting Alcohol intake: current Alcohol intake frequency: few times a week Desire information about alcohol rehabilitation?: Yes Marital status: Legally Number of children: 3 Number of grandchildren: 4 Current occupational status: unemployed Vitals/I&O/Wt Last Vital Signs Temp 98.2 F 08/28/21 04:00 Pulse 84 08/28/21 07:56 Resp 17 08/28/21 07:56 BP 98/64 08/28/21 07:15 Pulse Ox 93 08/28/21 07:56 08/27/21 08/28/21 08/28/21 22:59 06:59 14:59 Intake Total 700 / 700 Output Total 250 / 250 Balance 700 / 700 -250 / -250 Weight last 48 hrs Weight 136 lb Weight 139 lb 3.2 oz Physical Exam Narrative: GENERAL: Averagely built and averagely nourished in no acute distress HEENT: Pupils equal round reactive to light. No pallor or icterus. NECK:No JVD. No carotid bruit. CARDIOVASCULAR SYSTEM: S1-S2 regular. No S3 or S4 present. No murmur rubs or gallops. RESPIRATORY SYSTEM: decreased bilateral air entry. No wheezes rhonchi or rubs heard. No use of accessory muscles. ABDOMEN: Soft, nontender and nondistended. Normal bowel sounds present. EXTREMITIES: No cyanosis or edema. No signs of chronic venous insufficiency. PREVENTIVE MAINTENANCE COORDINATOR: Patient is alert oriented ?3. No focal neurological deficits. SKIN: Normal turgor and temperature. No breakdown, rash or nail changes noted. PSYCH: Normal insight and judgment. No suicidal or homicidal ideations. Data : 08/27/21 19:45 08/28/21 01:26 CTA Chest: Radiologist's impression: IMPRESSION: No findings of aortic dissection or PE. Mild ground-glass pulmonary infiltrates are suggested bilaterally can represent edema or infectious/inflammatory process.? 5 mm nodule left apex; for patients at low risk (minimal or absent history of smoking and of other known risk factors), no routine follow-up is indicated. For patients at high risk (history of smoking or of other known risk factors), consider optional CT Chest at 12 months. (Reference: Zoey) Other data: Baseline troponin T of 6 at 2 hours 145 and at 6 hours 175. -Total cholesterol 213, triglyceride 48, LDL 148 and HDL 55. EKG showed sinus rhythm. Possible left atrial enlargement. Minimal ST depression. No changes noticed on subsequent EKGs. SARS-CoV-2 PCR negative. A&P Assessment and plan (1) Non-ST elevation [place] (NSTEMI): CAD risk factors of smoking and family h/o CAD -Troponin T increased to 170's with inferior wall RWMA on TTE. Risks and benefits were discussed with the patients. Possible complications including risk of heart attack stroke and , coronary perforation, arrhythmia, cardiac tamponade in urgent CABG were discussed with the patient as well. -Plan is to proceed for the procedure at the earliest. 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
[2021-08-28] MEDS: aspirin 325 mg Tablet PO (09:42)
--- NOTE | 2021-08-28 09:54 | XACV_ITS ---
Exam Room: [facility] Ht: 157 cm Wt: 62 kg BSA: 1.65 m2 Gender: Female : 1965 Any Known Allergies: Penicillins Exam Priority: Routine Procedure(s): Procedure Description: Diagnostic procedure Procedure Description: Left Heart Catheterization Procedure Description: Miscellaneous Procedure Description: Angio-Seal Procedure Description: Coronary Angiography Diagnostic Cath Status: Urgent Diagnostic Findings * 55 year old female with past medical history asthma/COPD, chronic active smoker (1-2 PPD for last 40 years), anxiety/depression, family history of coronary artery disease (brother with heart attack in his 50s), another brother with stroke and father in his 50s with blood clots. She presented with complaints of chest discomfort as well as intermittent shortness of breath for 2 weeks. Yesterday, she developed chest pain described as crushing and pressure-like and 10 on 10 in intensity along with shortness of breath that was not relieved with her inhaler. At baseline troponin T was 6 that increased to 170s at 6 hours. EKG with no significant ST-T wave changes. Possible inferior wall motion abnormality on echocardiogram. Decision was made to proceed with coronary angiogram for non-ST elevation ACS. * Angiography shows a right coronary dominant system. * The left anterior descending artery is a moderate-sized vessel proximally and tapers into tiny vessel towards the apex. Otherwise the vessel is free of disease. * The left main coronary artery is normal and bifurcates into the left anterior descending and circumflex coronary arteries. * Left circumflex artery is a moderate-sized vessel without any disease. * The right coronary artery is a moderate-sized vessel and gives off a posterior descending branch. Minor luminal irregularities noted in mid portion of right coronary artery. Conclusions 1. Cardiac Catheterization study revealed no obstructive coronary artery disease. Recommendations * Return to inpatient for close monitoring and routine cath care. * Continue medical management and risk factor modification. Diagnostic RX Recommendation: medical therapy and/or counseling Pressures Phase:Rest AO : 93 / 71 ( 83 ) @ 5:28:00 PM 86 / 69 ( 78 ) @ 5:29:00 PM 104 / 65 ( 84 ) @ 5:40:00 PM 104 / 58 ( 82 ) @ 5:40:00 PM 85 / 70 ( 78 ) @ 5:42:00 PM LV : 104 / 0 / 15 @ 5:39:00 PM 93 / 8 / 18 @ 5:40:00 PM 93 / 8 / 17 @ 5:40:00 PM Valves Phase:DefaultPhase AV : 0.0 @ 4:58:17 PM AV Mean Gradient: 0.0 @ 4:58:17 PM Clinical Evaluation EBL: 5mL-10mL Procedural Details Procedure Consent Obtained. Pre-Procedure Time Out. Identified patient by full name and date of as verbalized by the patient/guarantor. Does the consent match the physician's order: Yes. Accurate & Complete Informed Consent: Yes. Inpatient/Outpatient History & Physical on Chart: Yes. If H&P is completed, is and addenduem needed: No; If yes, is the addendum complete: N/A. Visualize and Verify Site with Patient/Guarantor: N/A. Relevant Radiology Images available: Yes. Pre-op teaching completed and patient verbalized understanding. The risks, benefits, and alternatives of sedation and/or procedure were discussed by physician. The patient agrees to continue. Procedure started. [facility] Clinical Fraility Score: 3: Managing Well. Veneer Stock Grader Indications: ACS > 24 hours. Chest Pain Symptom Assessment: Typical Angina Symptoms. Correct patient, site and procedure confirmed by cath team. Current diagnosis: NSTEMI. PERRLA. Strong, equal hand nursery laborer bilaterally. Lungs clear x 5 lobes. IV Site on Arrival: 18 gauge in the left anticubital. IV Fluids: 0.9% NaCl at KVO. 400 mL infused prior to crown and bridge dental lab technician. Pre Procedural Pulses: right radial was 2+. Oxygen started at 2liters/min via nasal canula. right groin was prepped with chloroprep then draped in the usual sterile fashion. right radial was prepped with chloroprep then draped in the usual sterile fashion. Baseline sample Acquired. HR: 77 BPM. Physician notified. Physician arrived. Physician scrubbed in. Immediate Pre-Procedure Time Out. Correct Patient: Yes; Correct Procedure: Yes; Correct Site: Yes; Correct Patient Position: Yes; Correct Supplies: Yes; Dried Flammable Prep: Yes; Blood Products Available: N/A;. Lidocaine 1% infiltrated to the right groin. Lidocaine 1% infiltrated to the right groin. Arterial access obtained. wire unable to advance. wire and needle removed. Lidocaine 1% infiltrated to the right groin. Arterial access obtained with micropuncture set. A 5 kosovan JL4 catheter in over wire. Multiple views taken of left coronary artery. Physician review of cine films. Catheter removed over the standard wire. A 5 kosovan JR4 catheter in over wire. Catheter removed over the standard wire. A 5 kosovan 3DRC catheter in over wire. EDP Sample taken: LV 104/0,15; HR: 77 BPM; SpO2: 92%. EDP Sample taken: LV 93/8,18; HR: 84 BPM; SpO2: 91%. Pullback taken: LV 93/8,17; AO 104/65(84); Mean: 0mmHg, Peak to Peak: 0mmHg, SEP: 4sec/min; HR: 84 BPM; SpO2: 93%. Multiple views taken of right coronary artery. Physician review of cine films. A Right femoral angiogram was performed to determine safe placement of closure device. Angioseal placed without complications. No signs or symptoms of hematoma noted. Sterile dressing applied per usual sterile fashion. A Angio-Seal VIP ([facility]) was successful obtaining hemostatsis at the Right Femoral artery insertion site. Post Procedure: Pulses reassessed and unchanged. PERRLA. Strong, equal hand nursery laborer bilaterally. No VTE prophylaxis required. Medication's Wasted: Lidocaine 1% = 10 mL. Total IV fluids: 170 mL. Contrast type used: Visipaque 320 mgI/mL, 500 mL bottle. Complications: None. Estimated blood loss: 5mL-10mL. Responsiveness - Normal response to verbal stimuli; alert and oriented, PERRLA. Airway - Unaffected, no intervention required; spontaneous ventilation. Circulation: W/N/L, pulses unchanged. Nausea/Vomiting: No. Procedure completed. Patient transferred by bed to ICU. Vital chart was stopped. Medication's Wasted: Nitro = 49.8 mg. Medication's Wasted: Other = Versed 0.5mg Fentanyl 25mg. Medication's Wasted: Heparin = 1000 units. Access Site Site: Right Femoral artery Sheath Size: 5 Fr Hemostasis Method: Angio-Seal VIP ([facility]) Hemostasis Success: Successful Procedure Medications Start: 3:53 PM Stop: 3:53 PM Medication: Fentanyl Amount: 25 mcg Route: I.V. Start: 4:01 PM Stop: 4:01 PM Medication: Versed Amount: 0.5 mg Route: I.V. Start: 4:03 PM Stop: 4:03 PM Medication: Versed Amount: 0.5 mg Route: I.V. Start: 4:08 PM Stop: 4:08 PM Medication: Versed Amount: 0.5 mg Route: I.V. Start: 4:17 PM Stop: 4:17 PM Medication: Fentanyl Amount: 25 mcg Route: I.V. Start: 4:22 PM Stop: 4:22 PM Medication: Versed Amount: 1 mg Route: I.V. Start: 4:41 PM Stop: 4:41 PM Medication: Versed Amount: 0.5 mg Route: I.V. Start: 4:48 PM Stop: 4:48 PM Medication: Fentanyl Amount: 25 mcg Route: I.V. Start: 4:49 PM Stop: 4:49 PM Medication: Versed Amount: 0.5 mg Route: I.V. I, the attending physician, have reviewed and verified all procedure medications. Yes, all medications given per verbal order History/Risk Factors Hypertension: No Dyslipidemia: No Peripheral Arterial Disease (PAD): No Myocardial Infarction (AK): No Obesity: No Renal Disease: No Tobacco Use: Current/Recent(w/in 1 year) Prior Interventions PCI: No CABG: No Valve Surgery: No Report Signatures Finalized by Saumya Bajwa MD on 09/01/2021 06:05 PM
[2021-08-28] MEDS: ondansetron 2 mg/ML SDV 2 mL 4 MG IVP (10:35)
[2021-08-28 11:01] LABS: Anion Gap 16.8 (5-19); Blood Urea Nitrogen 14 mg/dL (6-20); Calcium 9.4 mg/dL (8.5-10.5); Carbon Dioxide 19 mmol/L (22-29); Chloride 104 mmol/L (98-107); Glomerular Filtration Rate 165.1 mL/min (90-130); Glucose 164 mg/dL (65-115); Osmolality Calculated 286 mOsm/kg (285-295); Potassium 3.8 mmol/L (3.5-5.1); Sodium 136 mmol/L (136-145)
[2021-08-28] MEDS: ticagrelor 90 mg Tablet 180 MG PO (11:05)
[2021-08-28] MEDS: diphenhydrAMINE 50 mg Capsule PO (15:02)
[2021-08-28] MEDS: sodium chloride 0.9% 1,000 ML 50 ML IV (15:02)
--- NOTE | 2021-08-28 16:58 | W.PM.OPSUD ---
Surgery/Procedure H&P Update DATE OF PROCEDURE: August 28, 2021 DATE H&P PERFORMED: 08/28/21 CHANGES TO PREVIOUS DOCUMENTATION: None PATIENT REASSESSED PRIOR TO SEDATION, WITH NO CHANGE NOTED: Yes PHYSICAL EXAM: alert, oriented x 3, clear to auscultation bilaterally and regular rate & rhythm AIRWAY EVAL/ANESTHESIA PLAN: see other exam findings (airway 3) and ASA III
[2021-08-28] MEDS: sodium chloride 0.9% 1,000 ML 100 ML IV (17:30)
--- NOTE | 2021-08-28 17:36 | PC.NURSE ---
Pt arrived from [facility] approximately 1700. Pt right femoral site clean/dry/intact. Per report right radial was attempted. laborer fryer farm attempted to remove TR band at bedside and pt began oozing slightly so TR re-applied. Slight bruising noted at bedside with Dr. Younger. Orders to deflate band per protocol.
[2021-08-28] MEDS: enoxaparin 40 mg/0.4 mL Syringe SUBCUT (17:47)
--- NOTE | 2021-08-28 17:56 | PM.MISC ---
Miscellaneous Note Purpose of Documentation: Prelim cardiac catheterization report: Patient underwent left heart catheterization via right femoral approach. No obstructive coronary artery disease noted. Patient tolerated the procedure well. Full report to follow.
[2021-08-28] MEDS: fentaNYL 50 mcg/mL INJ 2mL 25 MCG IVP (20:03)
[2021-08-28] MEDS: temazepam 15 mg Capsule PO (21:38)
[2021-08-28] MEDS: alum-mag-hydroxide-sime 30 mL UDC PO (21:38)
[2021-08-29] VITALS (32 sets, daily range): BP systolic 102–127; BP diastolic 60–86; PULSE 69–94; RESP 16–32; TEMP 36.8–37; O2SAT 90–98
[2021-08-29] MEDS: pantoprazole 40 mg SDV IVP (01:53)
[2021-08-29] MEDS: sodium chloride 0.9% 1,000 ML 50 ML IV (01:53)
[2021-08-29] MEDS: ondansetron 2 mg/ML SDV 2 mL 4 MG IVP (02:00)
[2021-08-29] MEDS: sodium chloride 0.9% 1,000 ML 100 ML IV (02:12)
[2021-08-29] MEDS: ipratropium-albuterol 3 mL Neb INHALATION ×4 (03:16→20:30)
[2021-08-29 05:42] LABS: Basophils % 0.1 %; Hematocrit 41.7 % (37.0-47.0); Hemoglobin 13.3 g/dL (11.5-15.3); Lymphocytes # 0.9 10^3/uL (0.8-4.8); Lymphocytes % 7.2 %; Mean Corpuscular HGB Conc 31.9 g/dL (30.0-36.0); Mean Corpuscular Hemoglobin 29.7 pg (28.0-34.0); Mean Corpuscular Volume 93.1 fl (81-99); Mean Platelet Volume 10.4 fL (7.4-10.4); Monocytes # 0.8 10^3/uL (0.2-0.9); Monocytes % 6.1 %; Neutrophils # 11.03 10^3/uL (1.8-7.7); Neutrophils % 85.8 %; Nucleated Red Blood Cells % 0 %; Platelet Count 342 10^3/cmm (130-400); Red Blood Count 4.48 10^6/uL (4.1-5.3); Red Cell Distribution Width 14.1 % (12.1-15.1); White Blood Count 12.9 10^3/uL (4.0-10.0)
[2021-08-29 06:21] LABS: Alanine Aminotransferase 15 U/L (0-33); Alkaline Phosphatase 72 IU/L (35-105); Anion Gap 14.4 (5-19); Aspartate Amino Transferase 12 U/L (0-32); Blood Urea Nitrogen 14 mg/dL (6-20); Calcium 9.1 mg/dL (8.5-10.5); Carbon Dioxide 22 mmol/L (22-29); Chloride 106 mmol/L (98-107); Globulin 2.3 g/dL (1.3-4.6); Glomerular Filtration Rate 127.6 mL/min (90-130); Glucose 128 mg/dL (65-115); Osmolality Calculated 288 mOsm/kg (285-295); Potassium 4.4 mmol/L (3.5-5.1); Sodium 138 mmol/L (136-145); Total Bilirubin 0.2 mg/dL (0.15-1.2); Total Protein 6.3 g/dL (6.6-8.7)
--- NOTE | 2021-08-29 08:01 | PC.NURSE ---
Dressing changed to groin site d/t gauze being saturated with blood. Tolerated well. PT given supplies to bathe herself, notified nurse that her groin was hurting. This nurse assessed groin site and new hematoma noted. notified. VSS.
--- NOTE | 2021-08-29 08:59 | PM.PN ---
Subjective Subjective: Mild chest discomfort last night. Medications: Reviewed: Yes Vitals/I&O/Wt Last Vital Signs Temp 98.4 F 08/29/21 04:00 Pulse 88 08/29/21 07:50 Resp 16 08/29/21 07:50 BP 102/80 08/29/21 04:00 Pulse Ox 92 08/29/21 07:50 08/28/21 08/29/21 08/29/21 22:59 06:59 14:59 Intake Total 480 / 480 2037.5 / 2517.5 Output Total 350 / 875 550 / 550 Balance 130 / -395 2037.5 / 1642.5 -550 / -550 Weight last 48 hrs Weight 136 lb Weight 139 lb 3.2 oz Physical Exam Narrative: GENERAL: Averagely built and averagely nourished in no acute distress HEENT: Pupils equal round reactive to light. No pallor or icterus. NECK:No JVD. No carotid bruit. CARDIOVASCULAR SYSTEM: S1-S2 regular. No murmur rubs or gallops. RESPIRATORY SYSTEM: decreased bilateral air entry. No wheezes rhonchi or rubs heard. No use of accessory muscles. ABDOMEN: Soft, nontender and nondistended. Normal bowel sounds present. EXTREMITIES: No cyanosis or edema. No signs of chronic venous insufficiency. Right groin access site with small heamtoma and mild bruising; right radial with mild bruising. WELDING SYSTEMS AND EQUIPMENT REPAIRER: Patient is alert oriented ?3. No focal neurological deficits. SKIN: Normal turgor and temperature. No breakdown, rash or nail changes noted. PSYCH: Normal insight and judgment. anxious Data : 08/29/21 05:09 08/29/21 05:09 A&P Assessment and plan (1) Non-ST elevation MA (NSTEMI): CAD risk factors of smoking and family h/o CAD -Troponin T increased to 170's with possible inferior wall RWMA on TTE. -Cardiac catheterization with minor irregularities in the RCA. Normal circumflex and LAD. MINOCA -vasospasm a possibility. -BP soft. NTG SL PRN -start on low dose statin. ASA 81 mg as tolerated (start tomorrow). -f/u with [facility] in 1 week -f/u with in 2 months. Status: Acute (2) Hypotension: BP soft, no prior h/o HTN -improved after IV hydration. Status: Acute (3) Smoking addiction: counselled on smoking cessation -motivated to quit. Status: Acute (4) COPD (chronic obstructive pulmonary disease): Status: Acute (5) Asthma: Status: Acute Attestations Medical Necessity Statement*: stable to be discharged home today. Coding Level of Care Code Acute Supervisor Housecleaner for [facility] Fwd Diagnoses Non-ST elevation MA (NSTEMI) I21.4 Hypotension I95.9 Smoking addiction F17.200 COPD (chronic obstructive pulmonary disease) J44.9 Asthma J45.909
[2021-08-29] MEDS: acetaminophen 325 mg Tablet 650 MG PO ×2 (09:45→21:31)
--- NOTE | 2021-08-29 11:52 | PC.CHAP ---
Pastoral Care Encounter/Spiritual Assessment Type of Contact [] Declined senior product consultant visit [] Patient/Family/Request visit [] Outpatient visit [] Follow-up visit [] Physician referral [] Code/Alert [x] Routine visit [] Staff referral [] Actively dying [] Patient sleeping [] Family support [] [] Out of room [] Palliative care [] [] Receiving care in room [] Pre-surgical visit [] Trauma [] Long length of stay [x] ICU visit [] Other: Relational/Emotional Strength [] Patient feels connected with others/family/visitors/staff [] Distress [] Loneliness/isolation [] Abandonment Spirituality of Patient [] Person of [place] [] Attends Amish of their [place] [] Believes in Prayer [] Reads Bible or Gnosticism materials [] There are Spiritual issues to be addressed Cottage Cheese Maker Interventions [x] Prayer [] Active listening [] Non-anxious presence [] Spiritual/emotional support [] Crisis/trauma care [] Spiritual counseling [] Bereavement support [] Provided bereavement packet [] Provided Bible/devotional materials [] Provided toy/stuffed animal, coloring book to patient or family member [] Provided Communion [] Anointing/[employer] [] Salvation [x] Completed spiritual assessment [] Other: Impact on Illness or Injury [] Angry [] Fearful [] Anxious [] Often cries [] Exhaustion [] Unable to work [] Unable to attend voodoo [] Unable to walk/stand [] Unable to read [] Unable to drive [] Unable to eat/drink [] Unable to sleep [] Unable to be with family [] Patient intubated [] Other: Summary Time spent with patient
--- NOTE | 2021-08-29 12:50 | PC.NURSE ---
Bedrest over at noon, hematoma has not grown in size. Pt states that it is less painful. Some bruising noted at site. MD aware. Assisted pt to BSC and then back to bed. Tolerated well. Sitting up in bed eating lunch and pt reminded to be careful with the R leg and avoid bending it too much for today.
--- NOTE | 2021-08-29 13:50 | PC.NURSE ---
Walked with pt per MD VO. Pt tolerated well. No change noted to hematoma. Pt o2 sat was 88% on RA after walking. O2@2L placed. Will monitor
--- NOTE | 2021-08-29 15:29 | PM.PN ---
Subjective Subjective: Still has some SOB but much better than before. Cough present. Had cardiac cath yesterday. Said to be normal. Developed small hematomat in rt groin. Vitals/I&O/Wt Last Vital Signs Temp 98.2 F 08/29/21 08:00 Pulse 76 08/29/21 14:26 Resp 16 08/29/21 14:23 BP 120/74 08/29/21 12:00 Pulse Ox 92 08/29/21 14:23 08/29/21 08/29/21 08/29/21 06:59 14:59 22:59 Intake Total 2037.5 / 2517.5 1040 / 1040 Output Total 950 / 950 Balance 2037.5 / 1642.5 90 / 90 Weight last 48 hrs Weight 61.689 kg Weight 63.14 kg Physical Exam Narrative: NAD CVS: S1S2, RRR, Mur (-) RS: BS+, Exp Rhonchi b/l Abd Soft, NT, BS+ Edema (-) SUPERVISOR METAL HANGING: A&Ox4 Skin. small hematoma rt inguinal area. mild tender Data : 08/29/21 05:09 08/29/21 05:09 A&P Assessment and plan (1) Acute exacerbation of chronic obstructive airways disease: slowly improving Status: Acute (2) Chest pain: Non cardiac CP. Cardiac Cath Neg. Probably musculoskeletal or GERD Status: Acute (3) Smoking addiction: on nicodern Status: Acute (4) Increased anion gap metabolic acidosis: ketone neg Status: Acute Plan Transfer pt to floor Continue steroid bronchodil ASA BB Statin Attestations Medical Necessity Statement*: Pt will need continued hospitalization >2 midnight due to Ac exacerbation of COPD management Time Spent in Patient Care: 40 min Critical Care Time: 10 min Coding Level of Care Code [facility] Fwd Diagnoses Acute exacerbation of chronic obstructive airways disease J44.1 Chest pain R07.9 Smoking addiction F17.200 Increased anion gap metabolic acidosis E87.2
[2021-08-29] MEDS: enoxaparin 40 mg/0.4 mL Syringe SUBCUT (16:17)
--- NOTE | 2021-08-29 18:08 | PC.NURSE ---
Shift Note Frequent safety and comfort rounds continue. Orders and/or nursing care completed as indicated. Patient monitored for response to intervention and treatment(s). Education provided includes treatment plan, groin site care, medications, oxygen and need for continued hospitalization. VSS. Pt anxious at times. Sitting up on bed at this time eating dinner. Will continue to monitor.
[2021-08-29] MEDS: sertraline 100 mg Tablet PO (19:25)
[2021-08-29] MEDS: atorvastatin 40 mg Tablet PO (20:18)
--- NOTE | 2021-08-29 21:00 | PC.NURSE ---
Personal Hygiene Patient minimally assisted with bed bath and linen change. Patient also transferred to bedside commode from bed and back again with no issues. Patient tolerated all activity well with all vitals remaining stable. Right groin site maintained the same with no new hematoma growth.
[2021-08-29] MEDS: temazepam 15 mg Capsule PO (21:31)
[2021-08-30] VITALS (11 sets, daily range): BP systolic 92–110; BP diastolic 60–76; PULSE 69–80; RESP 16–24; TEMP 36.6–36.8; O2SAT 90–94
[2021-08-30] MEDS: ipratropium-albuterol 3 mL Neb INHALATION ×2 (02:20→08:33)
--- NOTE | 2021-08-30 03:17 | PC.NURSE ---
Transfer Patient [facility] to [facility] bed 279-2 via wheelchair. All patient belongings with patient at time of move. Receiving nurse in room upon arrival. Patient tolerated move well.
[2021-08-30] MEDS: ondansetron 4 MG Tablet PO (04:50)
[2021-08-30 05:07] LABS: Hematocrit 42.3 % (37.0-47.0); Hemoglobin 13.4 g/dL (11.5-15.3); Lymphocytes % 7.9 %; Mean Corpuscular HGB Conc 31.7 g/dL (30.0-36.0); Mean Corpuscular Hemoglobin 29.7 pg (28.0-34.0); Mean Corpuscular Volume 93.8 fl (81-99); Mean Platelet Volume 10.2 fL (7.4-10.4); Monocytes # 0.6 10^3/uL (0.2-0.9); Monocytes % 5.3 %; Neutrophils # 10.32 10^3/uL (1.8-7.7); Neutrophils % 86.1 %; Nucleated Red Blood Cells % 0 %; Platelet Count 338 10^3/cmm (130-400); Red Blood Count 4.51 10^6/uL (4.1-5.3); Red Cell Distribution Width 14.3 % (12.1-15.1)
[2021-08-30 05:30] LABS: Alanine Aminotransferase 14 U/L (0-33); Alkaline Phosphatase 71 IU/L (35-105); Anion Gap 13.1 (5-19); Aspartate Amino Transferase 10 U/L (0-32); Blood Urea Nitrogen 13 mg/dL (6-20); Calcium 9.5 mg/dL (8.5-10.5); Carbon Dioxide 24 mmol/L (22-29); Chloride 101 mmol/L (98-107); Glomerular Filtration Rate 165.1 mL/min (90-130); Glucose 124 mg/dL (65-115); Osmolality Calculated 280 mOsm/kg (285-295); Potassium 4.1 mmol/L (3.5-5.1); Sodium 134 mmol/L (136-145); Total Bilirubin 0.2 mg/dL (0.15-1.2)
[2021-08-30] MEDS: aspirin 81 mg EC Tablet PO (08:04)
[2021-08-30] MEDS: pantoprazole DR 40 mg Tablet PO (08:04)
[2021-08-30] MEDS: sertraline 100 mg Tablet PO (08:04)
--- NOTE | 2021-08-30 09:55 | PM.DCS ---
Discharge Providers Date of Admission: 08/28/21 02:13 Date of Discharge: August 30, 2021 Attending Provider at Admission: Herb Wilson Attending Provider at Discharge: Tres Matias MD Primary Care Provider: Lane Brown MD Diagnoses at Discharge Discharge Diagnosis (1) Acute exacerbation of chronic obstructive airways disease: (2) Chest pain: (3) Smoking addiction: (4) Increased anion gap metabolic acidosis: Reason for Visit Reason for Visit: RESP. DISTRESS Hospital Course Hospital Course Andra Johnson is a 55 year old female with past medical history asthma/COPD, chronic active smoker (1-2 PPD for last 40 years), anxiety/depression, family history of coronary artery disease (brother with heart attack in his 50s), another brother with stroke and father in his 50s with blood clots.? She presented with complaints of chest discomfort as well as intermittent shortness of breath for 2 weeks. She started having chills with shortness of breath along with some pain in her chest which she describes as mostly with coughing and testing was audible from her chest but more prominent in 4 points on the chest (upper right and left chest and bilateral sides).? She was in the ER the night before and was discharged home.? Yesterday she developed chest pain described as crushing and pressure-like and 10 on 10 in intensity along with shortness of breath that was not relieved with her inhaler and hence [id number] called EMS.? Patient does not usually check her blood pressure or pulse oximetry but EMS vitals were within normal range patient and family.? At baseline troponin T was 6 that increased to 170s at 6 hours. EKG with no significant ST-T wave changes. She was admitted for the management of NSTEMI underwent left heart cath:Cardiac catheterization with minor irregularities in the RCA.? Normal circumflex and LAD. Likely MIN[place], cannot conclusively rule out coronary vasospasm,She has been discharged on aspirin, counseled regarding quitting smoking. She will continue to follow cardiology as an outpatient. Physical Exam Const: COMMON NORMALS: patient oriented x3 HENMT: COMMON NORMALS: normocephalic, atraumatic, hearing grossly normal bilaterally and external ears normal HEAD & SCALP: normocephalic and atraumatic EXTERNAL EAR: Yes external ears normal Eye: COMMON NORMALS: no scleral icterus GENERAL EYE: appearance normal, both eyes and all related structures Chest: COMMONS NORMALS: normal inspection of the chest and normal palpation of entire chest wall CHEST: Yes Symmetrical chest wall rise Resp: COMMON NORMALS: normal respiratory effort, No retractions, No use of accessory muscles and clear to auscultation bilaterally EFFORT & INSPECTION: Yes symmetric chest movement AUSCULTATION: clear to auscultation bilaterally Cardio: COMMON NORMALS: regular rate, regular rhythm, S1 normal heart sound present, S2 normal heart sound present, No gallops present (Cardio), No murmurs present (Cardio), No rub (Cardio) and Peripheral pulses 2+ throughout RATE: regular rate RHYTHM: regular rhythm HEART SOUNDS: S1 normal heart sound present and S2 normal heart sound present PERIPHERAL PULSES: Peripheral pulses 2+ throughout GI: COMMON NORMALS: Normal to inspection, nondistended, normoactive bowel sounds present, Soft to palpation, non-tender, No hepatosplenomegaly present and no masses AUSCULTATION: Yes normoactive bowel sounds PALPATION: Yes Soft to palpation and Yes No hepatosplenomegaly present RECTAL EXAM: deferred Extremity: COMMON NORMALS: no clubbing, cyanosis or edema and no pedal edema Neuro: COMMON NORMALS: patient oriented x3 Discharge Data Studies Completed and Pending Completed Studies During Hospitalization Category Date Time Status CT angio chest [id number] Stat Cat Scan 08/28/21 01:22 Completed XR chest 1V portable [id number] Urgent Exams 08/27/21 20:44 Completed CV. 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 Chest CTA 08/28/21 01:22 IMPRESSION: No findings of aortic dissection. Mild ground-glass pulmonary infiltrates are suggested bilaterally can represent edema or infectious/inflammatory process. 5 mm nodule left apex; for patients at low risk (minimal or absent history of smoking and of other known risk factors), no routine follow-up is indicated. For patients at high risk (history of smoking or of other known risk factors), consider optional CT Chest at 12 months. (Reference: Zoey) References: Zoey Gerber, et al. Guidelines for Management of Incidental Pulmonary Nodules Detected on CT Images: From the Fleischner Society 2017. Radiology. 2017;284(1):228-243. Laboratory Results WBC 12.0 10^3/uL (4.0-10.0) H 08/30/21 04:53 RBC 4.51 10^6/uL (4.1-5.3) 08/30/21 04:53 Hgb 13.4 g/dL (11.5-15.3) 08/30/21 04:53 Hct 42.3 % (37.0-47.0) 08/30/21 04:53 MCV 93.8 fl (81-99) 08/30/21 04:53 MCH 29.7 pg (28.0-34.0) 08/30/21 04:53 MCHC 31.7 g/dL (30.0-36.0) 08/30/21 04:53 RDW 14.3 % (12.1-15.1) 08/30/21 04:53 Plt Count 338 10^3/cmm (130-400) 08/30/21 04:53 MPV 10.2 fL (7.4-10.4) 08/30/21 04:53 Neut % (Auto) 86.1 % 08/30/21 04:53 Lymph % (Auto) 7.9 % 08/30/21 04:53 [place] % (Auto) 5.3 % 08/30/21 04:53 Eos % (Auto) 0.0 % 08/30/21 04:53 Baso % (Auto) 0.0 % 08/30/21 04:53 Neut # (Auto) 10.32 10^3/uL (1.8-7.7) H 08/30/21 04:53 Lymph # (Auto) 1.0 10^3/uL (0.8-4.8) 08/30/21 04:53 [place] # (Auto) 0.6 10^3/uL (0.2-0.9) 08/30/21 04:53 Eos # (Auto) 0.0 10^3/uL (0.0-0.8) 08/30/21 04:53 Baso # (Auto) 0.0 10^3/uL (0.0-0.1) 08/30/21 04:53 Nucleated RBC % (auto) 0 % 08/30/21 04:53 Nucleated RBCs # 0.0 /100WBC 08/30/21 04:53 D-Dimer 0.37 ug/mIFEU (0-0.59) 08/27/21 19:45 Sodium 134 mmol/L (136-145) L 08/30/21 04:53 Potassium 4.1 mmol/L (3.5-5.1) 08/30/21 04:53 Chloride 101 mmol/L (98-107) 08/30/21 04:53 Carbon Dioxide 24 mmol/L (22-29) 08/30/21 04:53 Anion Gap 13.1 (5-19) 08/30/21 04:53 BUN 13 mg/dL (6-20) 08/30/21 04:53 Creatinine 0.4 mg/dL (0.5-0.9) L 08/30/21 04:53 GFR Calculation 165.1 mL/min (90-130) H 08/30/21 04:53 Glucose 124 mg/dL (65-115) H 08/30/21 04:53 Calculated Osmolality 280 mOsm/kg (285-295) L 08/30/21 04:53 Lactate 1.1 mmol/L (0.5-2.2) 08/28/21 01:26 Calcium 9.5 mg/dL (8.5-10.5) 08/30/21 04:53 Total Bilirubin 0.2 mg/dL (0.15-1.2) 08/30/21 04:53 AST 10 U/L (0-32) 08/30/21 04:53 ALT 14 U/L (0-33) 08/30/21 04:53 Alkaline Phosphatase 71 IU/L (35-105) 08/30/21 04:53 Troponin T Baseline 6 ng/L (0-10) 08/27/21 19:45 Troponin T 120 Minute 144.7 ng/L (0-10) H 08/27/21 21:45 Delta Troponin T 138.7 ABS# (0-10) H* 08/27/21 21:45 Troponin T Hi Sens 6Hr 174.7 ng/L (0-10) H 08/28/21 01:26 Troponin T Hi Sens 6Hr Delta 168.7 ng/L (0-12) H* 08/28/21 01:26 NT-Pro-B Natriuret Pep 42 pg/mL (0-125) 08/27/21 19:45 Total Protein 7.0 g/dL (6.6-8.7) 08/30/21 04:53 Albumin 4.0 g/dL (3.5-5.2) 08/30/21 04:53 Globulin 3.0 g/dL (1.3-4.6) 08/30/21 04:53 Triglycerides 48 mg/dL (0-150) 08/28/21 01:26 Cholesterol 213 mg/dL (0-200) H 08/28/21 01:26 LDL Cholesterol, Calc 148 mg/dL (50-129) H 08/28/21 01:26 HDL Cholesterol 55 mg/dL (60-100) L 08/28/21 01:26 LDL/HDL Ratio 2.69 RATIO (0.00-3.22) 08/28/21 01:26 Cholesterol/HDL Ratio 3.87 mg/dL (0.0-4.40) 08/28/21 01:26 Procalcitonin 0.08 ng/mL (0-0.5) 08/28/21 01:26 Random Cortisol 14.59 ug/dL (2.47-19.5) 08/28/21 01:26 Urine Color Yellow (Yellow) 08/28/21 00:18 Urine Appearance Clear (CLEAR) 08/28/21 00:18 Urine pH 6 (5-7) 08/28/21 00:18 Ur Specific [place] 1.020 (1.005-1.030) 08/28/21 00:18 Urine Protein Neg (Negative) 08/28/21 00:18 Urine Glucose (UA) 2+ (Normal) H 08/28/21 00:18 Urine Ketones Negative (Negative) 08/28/21 00:18 Urine Blood Neg (Negative) 08/28/21 00:18 Urine Nitrate Negative (Negative) 08/28/21 00:18 Urine Bilirubin Neg (Negative) 08/28/21 00:18 Urine Urobilinogen Norm mg/dL (Negative) 08/28/21 00:18 Ur Leukocyte Esterase Negative (Negative) 08/28/21 00:18 Salicylates 3.2 mg/dL (3-10) 08/28/21 01:26 Serum Ketones Negative (Negative) 08/27/21 19:45 Coronavirus 229E (PCR) Not detected (NOT DETECT) 08/27/21 20:57 SARS-CoV-2 (PCR) Not detected (NOT DETECT) 08/27/21 20:57 Vitals Last Vital Signs Temp 98.3 F 08/30/21 09:09 Pulse 70 08/30/21 09:09 Resp 24 H 08/30/21 09:09 BP 109/64 08/30/21 09:09 Pulse Ox 90 08/30/21 09:09 Discharge Plan Discharge Patient Disposition: Home Condition: Stable Prescriptions: New Tylenol 325 mg tablet 325 mg PO Q6H PRN (Reason: pain) Qty: 10 0RF atorvastatin 20 mg tablet 20 mg PO DAILY 30 Days Qty: 30 3RF aspirin 81 mg tablet,delayed release (DR/EC) 81 mg PO DAILY 30 Days Qty: 30 3RF Continued doxycycline hyclate 100 mg capsule 100 mg PO BID 7 Days Qty: 14 0RF Rx Instructions: for 7 days albuterol sulfate 90 mcg/actuation HFA aerosol inhaler 1 inh INHALATION QID PRN (Reason: Shortness Of Breath) Qty: 8.5 3RF Rx Instructions: 340b Advair Diskus 250-50 mcg/dose blister with device 1 inh inhalation Q12H Qty: 60 3RF Rx Instructions: 340B medication albuterol sulfate 2.5 mg /3 mL (0.083 %) solution for nebulization 2.5 mg INHALATION Q4H PRN (Reason: Shortness Of Breath) Qty: 180 3RF Rx Instructions: 340 b ipratropium-albuterol 0.5 mg-3 mg(2.5 mg base)/3 mL solution for nebulization 3 ml inhalation Q4H PRN (Reason: shortness of breath or wheezing) Qty: 90 0RF Rx Instructions: until breathing returns to target peak flow/parameters sertraline 100 mg tablet 100 mg PO DAILY PRN (Reason: unknown) 0RF No Action Fish Oil 100-160-1,000 mg capsule PO 0RF Discharge Orders: Discharge Order (Routine); Ordered 08/30/21 Ordered By: Tres Matias Referrals: Lane Brown MD [Primary Care Provider] - 1 month (Please call to make an appointment for 1 month following your hospital stay. ) Maren Courtney FNP [Nurse Practitioner] - 1 week (Please call Wednesday to make a follow up visit with your primary care provider following your hospital stay. ) Saumya Bajwa MD [Physician] - 2 months (Please call [facility] Wednesday to make a follow up visit for 2 months following your hospital stay. ) Discharge Diet: Regular Discharge Activity: Resume usual activity Patient Instructions: Acetaminophen (By mouth), Aspirin (By mouth), Atorvastatin (By mouth), Chest Pain (DC), How to Stop Smoking (DC), Opioid Safety Discharge Attestations Time Spent in Discharge Care*: greater than 30 min Specific Discharge Activities: educating patient, educating and/or supporting family/caregiver, discussing with pcp/other providers, discussing with assistant case manager/social workers/dc planners, documenting/other paperwork and evaluating patient/reviewing data Quality Metrics Clinical Quality Measures [ No reported AMI, CVA or VTE this stay] Coding Level of Care Code Acute Chg FW DC note Diagnoses Acute exacerbation of chronic obstructive airways disease J44.1 Chest pain R07.9 Smoking addiction F17.200 Increased anion gap metabolic acidosis E87.2
--- NOTE | 2021-08-30 11:39 | PC.NURSE ---
discharge discharge instructions reviewed with pt, pt verbalized understanding. IV removed tip intact, pt tolerated well. pt dressed, personal belongings gathered, including pt wallet from [employer]. pt taken by wheelchair to private vehicle accompanied by family.
== END 2021-08-30 11:30 | disposition home or self-care (01) | DRG 281 ==
LOC: ER 23:29 → ICU 08-28 01:59 → CSU 08-29 06:52 → MEDSURG 08-30 03:06
PROVIDERS: Internal Medicine Cardiovascular Disease; Admitting Provider Internal Medicine; Emergency Provider Emergency Medicine; PCP Family Medicine Adult Medicine; Visit Provider Internal Medicine
PROC: 4A023N7 Measurement of Cardiac Sampling and Pressure, Left Heart, Percutaneous Approach (ICD-10-PCS; principal; 2021-08-28 16:00)
DX: I21.4 Non-ST elevation (NSTEMI) myocardial infarction (principal); J44.1 Chronic obstructive pulmonary disease with (acute) exacerbation; E87.2 Acidosis; F17.210 Nicotine dependence, cigarettes, uncomplicated; I95.9 Hypotension, unspecified; F41.8 Other specified anxiety disorders; Z82.49 Family history of ischemic heart disease and other diseases of the circulatory system; Z79.51 Long term (current) use of inhaled steroids
CPT/HCPCS: 36415; 71045; 71275; 80048; 80053; 80061; 80307; 81003; 82009; 82533; 83605; 83880; 84145; 84484; 85025; 85378; 87635; 93005; 93306; 93452; 93458; 94640; 96372; 96374; 96375; 99285; C1760; C1769; C1887; C1894; C9113; J1644; J1650; J2250; J2405; J2930; J3010; J3490; J7030; J7120; Q0162; Q0163; Q9967

== ENCOUNTER → 2021-09-04 10:38 | Outpatient (BNVA) | payer MEDICAID, SELFPAY | PROVIDERS: PCP Family Medicine Adult Medicine; Visit Provider Nurse Practitioner Family | DX: I21.4 Non-ST elevation (NSTEMI) myocardial infarction (principal) | CPT/HCPCS: 80048 ==

== ENCOUNTER → 2022-02-11 09:32 | Outpatient (BNVA) | payer MEDICAID, SELFPAY | PROVIDERS: PCP Family Medicine Adult Medicine; Referring Provider Family Medicine Adult Medicine; Visit Provider Surgery | DX: R10.32 Left lower quadrant pain (principal) | CPT/HCPCS: 99203 ==

== ENCOUNTER 2022-04-06 14:03 | Outpatient (CLI) | payer MEDICAID, SELFPAY ==
[2022-04-06] MEDS: iohexol 350 mg/mL 100 mL Btl PO (14:11)
--- NOTE | 2022-04-06 14:30 | CT_ITS ---
WS: [id number] CT ABDOMEN PELVIS TECHNIQUE: Contrast-enhanced CT of the abdomen and pelvis with coronal and sagittal reformatted image s. CLINICAL INFORMATION: abdominal pain COMPARISON: None. DLP: 982.[address] scans at [facility] use at least one of these dose optimization techniques: automated e xposure control; mA and/or kV adjustment per patient size (includes targeted exams where dose is matc hed to clinical indication); or iterative reconstruction. FINDINGS: Lung bases are well aerated. Subsegmental atelectasis RIGHT middle lobe. Hepatomegaly. Diffuse fatty infiltration liver. Normal portal vein and splenic vein. Normal spleen. Normal GE junction. Adrenal g lands are normal. Normal renal parenchymal enhancement. No hydronephrosis. 2.8 cm LEFT renal cyst. Ga llbladder is normal in appearance. Chronic compression superior endplate L1 is unchanged since the prior CTA August 28, 2021. Prior hyste rectomy. Normal sigmoid colon. No evidence of high-grade small or obstruction. Retroaortic LEFT renal vein. No abdominal lymphadenopathy. No inguinal lymphadenopathy. Tiny fat-containing umbilical herni a. Slightly ectatic abdominal aorta measuring 1.8 cm. Small fat-containing morgagni type hernia. Smal l amount of herniated fat ventral to the pericardium. CT/CT abdomen pelvis w con* [id number] IMPRESSION: 1. Mild hepatomegaly with diffuse fatty infiltration. 2. Gallbladder appears normal. 3. LEFT renal cyst measuring 2.8 cm. 4. Prior hysterectomy. 5. Tiny fat-containing umbilical hernia. 6. Small fat-containing morgagni type hernia. Small amount of herniated fat ve ntral to the pericardium. 7. No other suspicious findings.
[2022-04-06] MEDS: iohexol 350 mg/mL 100 mL Btl IV (15:28)
== END 2022-04-06 14:04 | disposition home or self-care (01) ==
LOC: RAD 14:04
PROVIDERS: PCP Family Medicine Adult Medicine; Visit Provider Surgery
DX: R10.32 Left lower quadrant pain (principal); K76.0 Fatty (change of) liver, not elsewhere classified; N28.1 Cyst of kidney, acquired; K42.9 Umbilical hernia without obstruction or gangrene
CPT/HCPCS: 74177

== ENCOUNTER 2022-04-16 08:51 | Day surgery (SDC) | payer MEDICAID, SELFPAY ==
[2022-04-14 14:56] VITALS: BMI 25.6
[2022-04-16 09:54] VITALS: BP 136/87; PULSE 77; RESP 18; TEMP 36.6; O2SAT 96
[2022-04-16] MEDS: sodium chloride 0.9% 1,000 ML 30 ML IV (10:02)
--- NOTE | 2022-04-16 11:24 | P.ANESASSM_ITS ---
Pre-Anesthetic Assessment Height/Weight: Height 1.57 m Weight 63.503 kg Temp Pulse Resp BP Pulse Ox O2 Del Method 97.9 F 77 18 136/87 96 04/16/22 09:54 04/16/22 09:54 04/16/22 09:54 04/16/22 09:54 04/16/22 09:54 04/16/22 09:54 Preop Diagnosis: Lower abdominal pain Operation Date: 04/16/22 10:45 Proposed Procedures p Colonoscopy 65933,R10.32(Not Applicable) - Naga Head MD Familial anesthetic complications: None Was Beta Vanita taken within 24 hours: N/A Was Clonidine taken within 24 hours: N/A Last intake: Intake Last Liquid Date 04/15/22 Last Liquid Time 22:30 Last Solid Date 04/15/22 Last Solid Time 20:00 Social Tobacco and No alcohol Exam alert, oriented x 3, clear to auscultation bilaterally and regular rate & rhythm Airway Mallampati: Class II Dentition: chipped Comments: Comments: poor dentition Pulmonary Asthma and Chronic Obstructive Pulmonary Disease CV/HEM Myocardial Infarction (NSTEMI w/ clear cardiac cath) GI Gastroesophageal Reflux Disease Metabolic Hyperlipidemia Anesthetic Plan ASA status: 3 Anesthesia: MAC Risk of > 500 ml blood loss (7ml/kg in children): No Medications/Allergies Home Medications Medication Instructions Recorded Confirmed Last Taken Type acetaminophen 325 mg tablet 325 mg PO Q6H PRN pain #10 tabs 08/30/21 04/14/22 04/14/22 Rx (Tylenol) aspirin 81 mg tablet,delayed 81 mg PO DAILY 30 days #30 tabs 08/30/21 04/14/22 04/07/22 Rx release omega 8-kzh-syl-fish oil 100 1 cap PO DAILY 09/04/21 04/14/22 04/14/22 History mg-160 mg-1,000 mg capsule (Fish Oil) ascorbic acid (vitamin C) 1 tab PO DAILY 10/03/21 04/14/22 04/14/22 History cholecalciferol (vitamin D3) 25 mcg PO DAILY 10/03/21 04/14/22 04/14/22 History mecobalamin (vitamin B12) 1,000 mcg PO DAILY 10/03/21 04/14/22 04/14/22 History atorvastatin 20 mg tablet 20 mg PO DAILY #90 tabs 10/06/21 04/14/22 04/14/22 Rx nitroglycerin 0.4 mg sublingual 0.4 mg sublingual Q5M PRN chest 10/29/21 04/14/22 3 Weeks Ago Rx tablet pain #30 tabs ~03/24/22 albuterol sulfate 2.5 mg/3 mL See Rx Instructions .Route 02/18/22 04/14/22 04/15/22 Rx (0.083 %) solution for nebulization .COMPLEX #180 mL fluticasone 250 mcg-salmeterol 50 See Rx Instructions .Route 02/18/22 04/14/22 04/15/22 Rx mcg/dose blistr powdr for .COMPLEX #60 ea inhalation (Advair Diskus) albuterol sulfate 90 mcg/actuation 1 inh inhalation QID PRN shortness 03/31/22 04/14/22 2 Weeks Ago Rx aerosol inhaler (Ventolin HFA) of breath or wheezing #8.5 grams ~03/31/22 sertraline 50 mg tablet 50 mg PO DAILY 04/14/22 04/14/22 04/14/22 History Allergies Allergy/AdvReac Type Severity Reaction Status Date / Time Penicillins Allergy ALGY-Swell Verified 02/11/22 11:04 Lip/Tongue/Throat Current Medications Generic Name Dose Route Start Last Admin Trade Name Freq PRN Reason Stop Dose Admin Sodium Chloride 1,000 mls @ 30 mls/hr 04/16/22 10:00 04/16/22 10:02 Sodium Chloride 0.9% IV 04/17/22 09:59 30 mls/hr .Q24H RYDER Administration [facility] Anesthesia Medical History (Updated 02/21/22 @ 13:[address] MD) Acute exacerbation of chronic obstructive airways disease Anxiety and depression Chest pain COPD with asthma GERD (gastroesophageal reflux disease) Hypotension Increased anion gap metabolic acidosis Left lower quadrant abdominal pain Non-ST elevation [place] (NSTEMI) 08/28/2021 NSTEMI Hospitalization, Cardiac cath, CTA, Dr. Bajwa Psoriasis and similar disorders Shortness of breath Smoking addiction Quit smoking 08/25/2021 after 1-2 ppd for 40+ years Sprain and strain of lumbosacral joint/ligament Surgical History History of ear surgery Hx of hysterectomy Family History Other Cancer Diabetes Stroke Social History Smoking and tobacco status: former smoker (stopped after hospital stay) Quit status (tobacco): considering quitting Alcohol intake: current Alcohol intake frequency: few times a week Desire information about alcohol rehabilitation?: Yes Marital status: Legally Number of children: 3 Number of grandchildren: 4 Current occupational status: unemployed Data Anesthesia Cardiac Studies: Echocardiogram 08/28/21
--- NOTE | 2022-04-16 11:39 | P.HP_ITS ---
Same Day Surgery H&P Indication for Procedure/HPI DATE OF PROCEDURE: April 16, 2022 CHIEF COMPLAINT/INDICATIONFOR SURGICAL PROCEDURE: Damari espinoza PREOP DIAGNOSIS: Lower abdominal pain PLANNED PROCEDURE: Operation Date: 04/16/22 10:45 Proposed Procedures p Colonoscopy 98041,R10.32(Not Applicable) - Naga Head MD 02/11/2022 This is a pleasant 56 years old female patient referred to my practice with broad spectrum of symptomatology including but not limited to left lower quadrant abdominal pain which is being sharp and gets worse with bending over and gets better by laying down.? Patient reports that she had an exploratory laparotomy years ago and segment of the bowel was resected but unfortunately I do not have any details of the procedure or pathology reports.? She also gives history of trauma as her dog pushed her down and hit her on the left side of the torso back in July 2021.? Patient reports that her left-sided abdominal pain is referred to the lower back and has been going on for the past year but got worse over the past month.? Never had a colonoscopy before.? And no available imaging studies.? Patient denies any other constitutional symptoms. 04/16/2022 Patient comes today for diagnostic colonoscopy. Undergone a CT of the abdomen pelvis on 04/06/2022 that did show 1.? Mild hepatomegaly with diffuse fatty infiltration. 2.? Gallbladder appears normal. 3.? LEFT renal cyst measuring 2.8 cm. 4.? Prior hysterectomy. 5.? Tiny fat-containing umbilical hernia. 6.? Small fat-containing morgagni type hernia. Small amount of herniated fat ventral to the pericardium. 7.? No other suspicious findings. ? ROS All systems have been reviewed negative except as for the above or per problem list. Medications/Allergies* Home Medications Medication Instructions Recorded Confirmed Type omega 5-wup-aoo-fish oil 100 1 cap PO DAILY 09/04/21 04/14/22 History mg-160 mg-1,000 mg capsule (Fish Oil) ascorbic acid (vitamin C) 1 tab PO DAILY 10/03/21 04/14/22 History cholecalciferol (vitamin D3) 25 mcg PO DAILY 10/03/21 04/14/22 History mecobalamin (vitamin B12) 1,000 mcg PO DAILY 10/03/21 04/14/22 History sertraline 50 mg tablet 50 mg PO DAILY 04/14/22 04/14/22 History Allergies/Adverse Reactions Allergy/AdvReac Type Severity Reaction Status Date / Time Penicillins Allergy ALGY-Swell Verified 02/11/22 11:04 Lip/Tongue/Throat Current Medications: Generic Name Dose Route Start Last Admin Trade Name Freq PRN Reason Stop Dose Admin Sodium Chloride 1,000 mls @ 30 mls/hr 04/16/22 10:00 04/16/22 10:02 Sodium Chloride 0.9% IV 04/17/22 09:59 30 mls/hr .Q24H RYDER Administration Pertinent History/Comorbid Conditions* Medical History (Updated 02/21/22 @ 13:[address] MD) Acute exacerbation of chronic obstructive airways disease Anxiety and depression Chest pain COPD with asthma GERD (gastroesophageal reflux disease) Hypotension Increased anion gap metabolic acidosis Left lower quadrant abdominal pain Non-ST elevation [place] (NSTEMI) 08/28/2021 NSTEMI Hospitalization, Cardiac cath, CTA, Dr. Bajwa Psoriasis and similar disorders Shortness of breath Smoking addiction Quit smoking 08/25/2021 after 1-2 ppd for 40+ years Sprain and strain of lumbosacral joint/ligament Surgical History (Updated 09/24/20 @ 15:[address] MD) History of ear surgery Hx of hysterectomy Family History (Updated 09/24/20 @ 14:56 by Renita Mccracken LPN) Diabetes Cancer Stroke Social History Smoking and tobacco status: former smoker (stopped after hospital stay) Quit status (tobacco): considering quitting Alcohol intake: current Alcohol intake frequency: few times a week Desire information about alcohol rehabilitation?: Yes Marital status: Legally Number of children: 3 Number of grandchildren: 4 Current occupational status: unemployed Pertinent Exam Findings alert, oriented x 3, regular rate & rhythm and procedure specific exam findings (Abdominal exam nontender nondistended soft) Recommendations Surgery/Procedure today (Colonoscopy with possible biopsy) Coding Level of Care Code Acute Processing [employer] Supervisor for Susie Almeida
[2022-04-16 12:23] VITALS: BP 91/54; PULSE 71; RESP 16; TEMP 36.1; O2SAT 97
--- NOTE | 2022-04-16 12:23 | ANE.PACU2 ---
Inpatient post-anesthesia follow up: Airway intact: Yes Vital signs: Temperature 97.9 F Pulse Rate 77 Respiratory Rate 18 Blood Pressure 136/87 Pulse Oximetry 96 Oxygen Delivery Me thod Room Air Oxygen Flow Rate Fraction of Inspir ed Oxygen Hydration adequate: Yes Nausea and vomiting: No Pain level: 1 Mental status: Baseline
[2022-04-16 12:38] VITALS: BP 98/61; RESP 69; O2SAT 98
== END 2022-04-16 12:45 | disposition home or self-care (01) ==
PROVIDERS: PCP Family Medicine Adult Medicine; Visit Provider Surgery
PROC: 0DJD8ZZ Inspection of Lower Intestinal Tract, Via Natural or Artificial Opening Endoscopic (ICD-10-PCS; CPT 45378; principal; 2022-04-16 10:45)
DX: R10.32 Left lower quadrant pain (principal); F41.9 Anxiety disorder, unspecified; F32.A Depression, unspecified; K21.9 Gastro-esophageal reflux disease without esophagitis; Z87.891 Personal history of nicotine dependence
CPT/HCPCS: 45378; J2704; J7030

== ENCOUNTER → 2022-04-24 14:34 | Outpatient (BNVA) | payer MEDICAID, SELFPAY | PROVIDERS: PCP Family Medicine Adult Medicine; Visit Provider Family Medicine Adult Medicine | DX: M54.9 Dorsalgia, unspecified (principal); M46.1 Sacroiliitis, not elsewhere classified; R63.1 Polydipsia; I21.4 Non-ST elevation (NSTEMI) myocardial infarction | CPT/HCPCS: 80053; 81000; 83036; 86140 ==

== ENCOUNTER 2024-04-19 09:32 | Inpatient (IN) | payer MEDICARE, SELFPAY ==
[2024-04-19] VITALS (15 sets, daily range): BP systolic 111–141; BP diastolic 52–88; PULSE 70–88; RESP 15–24; TEMP 36.3–36.7; O2SAT 87–95; BMI 25.2
--- NOTE | 2024-04-19 10:06 | ECG_ITS ---
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
--- NOTE | 2024-04-19 10:06 | XR_ITS ---
WS: [id number] Exam: XR chest 1V portable [id number] Date/Time of Exam: 04/19/2024 10:08 AM Reason For Exam: dyspnea/cough Comparison 08/27/2021. Lungs are clear. Normal cardiomediastinal silhouette and regional bony elements. No pleural effusions . XR/XR chest 1V portable [id number] IMPRESSION: 1. Negative chest.
--- NOTE | 2024-04-19 10:15 | W.ED.SOB ---
HPI - SOB/Dyspnea General: Chief Complaint: Shortness of Breath/Dyspnea Stated Complaint: sob, shacky, feel like passing out Time Seen by Provider: 04/19/24 09:52 History of Present Illness: HPI Narrative: 58-year-old female presents emergency room complaining of being short of breath shaky feels like she is get a pass out. Patient is a smoker has a history of COPD is not on oxygen has been progressively worsening with a productive cough over the last 3 days. She been using nebulizer treatments at home initially they seem to help but now are less helpful and she denies any hemoptysis. She is having some chest discomfort. Usually associated with deep inspiration and with coughing. Associated symptoms: Reports chest congestion; Deny abdominal pain, chest pain or fever(s) Related Data Home Medications Medication Instructions Recorded Confirmed atorvastatin 20 mg tablet 20 mg PO DAILY 04/19/24 04/19/24 oxybutynin chloride 10 mg 10 mg PO QAM 04/19/24 04/19/24 tablet,extended release 24 hr sertraline 100 mg tablet 100 mg PO DAILY 04/19/24 04/19/24 Previous Rx's Medication Instructions Recorded acetaminophen 325 mg tablet 325 mg PO Q6H PRN pain #10 tabs 08/30/21 (Tylenol) aspirin 81 mg tablet,delayed 81 mg PO DAILY 90 days #90 tabs 08/25/22 release nitroglycerin 0.4 mg sublingual 0.4 mg sublingual Q5M PRN chest 02/05/23 tablet pain #30 tabs fluticasone propionate 50 1 spray intranasal Q12H PRN nasal 09/21/23 mcg/actuation nasal congestion #16 grams spray,suspension (Flonase Allergy Relief) albuterol sulfate 2.5 mg/3 mL See Rx Instructions .Route 11/16/23 (0.083 %) solution for nebulization .COMPLEX #180 mL omeprazole 20 mg capsule,delayed 20 mg PO DAILY PRN acid reflux #90 12/28/23 release caps albuterol sulfate 90 mcg/actuation 1 inh inhalation Q4H PRN shortness 04/21/24 aerosol inhaler (Ventolin HFA) of breath or wheezing 30 days #18 grams doxycycline hyclate 100 mg tablet 100 mg PO BID 7 days #14 tabs 04/21/24 fluticasone 250 mcg-salmeterol 50 1 inh inhalation Q12H #60 ea 04/21/24 mcg/dose blistr powdr for inhalation prednisone 20 mg tablet 20 mg PO BID 5 days #10 tabs 04/21/24 Allergies Allergy/AdvReac Type Severity Reaction Status Date / Time Penicillins Allergy AICHA-Karsonll Verified 04/19/24 09:46 Lip/Tongue/Throat Review of Systems Const: Denies: fever(s) or chills Card: Denies: chest pain Resp: Reports: dyspnea, productive cough, wheezing and chest congestion GI: Denies: abdominal pain : Denies: dysuria, urinary frequency or urinary urgency Musc: Denies: neck pain or back pain Skin/Breast: Denies: rash PFSH ED PFSH: Medical History Lip cyst Cutaneous horn Stress incontinence, female Sacroiliac inflammation Back pain GERD (gastroesophageal reflux disease) COPD with asthma Increased anion gap metabolic acidosis Smoking addiction Quit smoking 08/25/2021 after 1-2 ppd for 40+ years then started back Hypotension Non-ST elevation [place] (NSTEMI) 08/28/2021 NSTEMI Hospitalization, Cardiac cath, CTA, Dr. Bajwa Sprain and strain of lumbosacral joint/ligament Psoriasis and similar disorders Anxiety and depression Surgical History Hx of colonoscopy Dr. Head 04/16/2022 normal, 10 yr repeat History of ear surgery Hx of hysterectomy Family History Other Cancer Diabetes Stroke Social History Smoking and tobacco/nicotine status: former use of tobacco/nicotine Quit status (tobacco/nicotine): considering quitting Alcohol intake: current Alcohol intake frequency: few times a week Substance/Drug Use: never Marital status: Legally Number of children: 3 Number of grandchildren: 4 Current occupational status: unemployed Physical Exam Const: GENERAL APPEARANCE: cooperative ORIENTATION/CONSCIOUSNESS: Yes awake, Yes oriented to person, Yes oriented to place and Yes oriented to time HENMT: COMMON NORMALS: normocephalic, atraumatic and hearing grossly normal bilaterally HEAD & SCALP: normocephalic and atraumatic Resp: AUSCULTATION: rhonchi and wheezes Cardio: COMMON NORMALS: regular rate, regular rhythm and No murmurs present (Cardio) RATE: regular rate RHYTHM: regular rhythm GI: COMMON NORMALS: Soft to palpation and No hepatosplenomegaly present AUSCULTATION: Yes normoactive bowel sounds PALPATION: Yes Soft to palpation, No Tenderness to palpation present (GI), No Guarding due to palpation present (GI) and Yes No hepatosplenomegaly present Extremity: COMMON NORMALS: normal to inspection, capillary refill normal, no clubbing, cyanosis or edema, no calf tenderness and no pedal edema Neuro: SENSORIUM/ORIENTATION: Yes oriented to person, Yes oriented to place and Yes oriented to time Skin: COMMON NORMALS: no rashes or lesions noted GENERAL SKIN EXAM: no rashes or lesions noted Course Vital Signs: Vital signs: Vital Signs Temperature 97.9 F 04/21/24 14:21 Pulse Rate 92 04/21/24 14:21 Respiratory Rate 16 04/21/24 14:21 Blood Pressure 135/70 04/21/24 14:21 Pulse Oximetry 88 L 04/21/24 14:21 Oxygen Delivery Me thod Room Air 04/21/24 12:00 Oxygen Flow Rate 2 04/21/24 11:25 MDM - SOB/Dyspnea Medical Decision Making Patient has transient improvement with nebulizers and steroids still requiring oxygen supplementation and repeat nebulizers. Cardiac enzymes trended negative EKGs did not show any acute changes will admit for exacerbation COPD discussed with hospitalist orders written Medical Records I reviewed the patient's medical records. Lab Data I reviewed the patient's lab results. 04/21/24 05:46 04/21/24 05:41 Labs/Radiology: Radiology Impressions Chest X-Ray 04/19/24 10:06 IMPRESSION: 1. Negative chest. Laboratory Results WBC 5.57 10^3/uL (3.29-11.43) 04/20/24 05:54 RBC 4.34 10^6/uL (3.85-5.65) 04/20/24 05:54 Hgb 12.70 g/dL (11.27-16.99) 04/20/24 05:54 Hct 40.5 % (36-47) 04/20/24 05:54 MCV 93.3 fl (85-98) 04/20/24 05:54 MCH 29.3 pg (27-33) 04/20/24 05:54 MCHC 31.4 g/dL (30-55) D 04/20/24 05:54 RDW 13.9 % (12.1-15.1) 04/20/24 05:54 Plt Count 214 10^3/cmm (157-399) 04/20/24 05:54 MPV 10.1 fL (7.4-10.4) 04/20/24 05:54 Neut % (Auto) 56.3 % 04/20/24 05:54 Lymph % (Auto) 27.3 % 04/20/24 05:54 [place] % (Auto) 15.4 % 04/20/24 05:54 Eos % (Auto) 0.0 % 04/20/24 05:54 Baso % (Auto) 0.5 % 04/20/24 05:54 Neut # (Auto) 3.13 10^3/uL (1.8-7.7) 04/20/24 05:54 Lymph # (Auto) 1.5 10^3/uL (0.8-4.8) 04/20/24 05:54 [place] # (Auto) 0.9 10^3/uL (0.2-0.9) 04/20/24 05:54 Eos # (Auto) 0.0 10^3/uL (0.0-0.8) 04/20/24 05:54 Baso # (Auto) 0.0 10^3/uL (0.0-0.1) 04/20/24 05:54 Nucleated RBC % (auto) 0 % 04/20/24 05:54 Nucleated RBCs # 0.0 /100WBC 04/20/24 05:54 Specimen Type Arterial 04/19/24 10:15 Sample Site Brachial, right 04/19/24 10:15 ABG pH 7.40 (7.35-7.45) 04/19/24 10:15 ABG pCO2 39.9 mmHg (35-45) 04/19/24 10:15 ABG pO2 56.1 mmHg (80.0-100.0) L 04/19/24 10:15 ABG PO2/FiO2 Ratio 267 04/19/24 10:15 ABG HCO3 24.6 mmol/L (22-26) 04/19/24 10:15 ABG O2 Saturation 90.4 04/19/24 10:15 ABG Base Excess -0.2 mmol/L (-2.0-2.0) 04/19/24 10:15 Dion Test N/a 04/19/24 10:15 A-a O2 Gradient 5.8 mmHg (5-10) 04/19/24 10:15 Hematocrit 42.9 % (37-47) 04/19/24 10:15 Hgb O2 Saturation 86.4 % (95-100) L 04/19/24 10:15 Carboxyhemoglobin 3.5 %THgb (0.4-20.1) 04/19/24 10:15 Methemoglobin 1.0 % (0.4-1.5) 04/19/24 10:15 Total Hemoglobin 14.0 g/dL (12-16) 04/19/24 10:15 Sodium 141.0 mmol/L (131-143) 04/19/24 10:15 Potassium 3.6 mmol/L (3.5-5.0) 04/19/24 10:15 Glucose 99.0 mg/dL (70-115) 04/19/24 10:15 Ionized Calcium 1.2 mmol/L (1.1-1.4) 04/19/24 10:15 O2 Delivery Device Room air 04/19/24 10:15 FiO2 21.0 % 04/19/24 10:15 Business Systems Analyst ID Amh 04/19/24 10:15 Sodium 137 mmol/L (136-145) 04/20/24 05:54 Potassium 3.9 mmol/L (3.5-5.1) 04/20/24 05:54 Chloride 104 mmol/L (98-107) 04/20/24 05:54 Carbon Dioxide 21 mmol/L (22-29) L 04/20/24 05:54 Anion Gap 15.9 (5-19) 04/20/24 05:54 BUN 13 mg/dL (6-20) 04/20/24 05:54 Creatinine 0.4 mg/dL (0.5-0.9) L 04/20/24 05:54 GFR Calculation 163.4 mL/min (90-130) H 04/20/24 05:54 Glucose 133 mg/dL (65-115) H 04/20/24 05:54 Calculated Osmolality 286 mOsm/kg (285-295) 04/20/24 05:54 Calcium 9.0 mg/dL (8.5-10.5) 04/20/24 05:54 Total Bilirubin 0.4 mg/dL (0.15-1.2) 04/19/24 10:37 AST 16 U/L (0-32) 04/19/24 10:37 ALT 15 U/L (0-33) 04/19/24 10:37 Alkaline Phosphatase 98 U/L (35-105) 04/19/24 10:37 Troponin T Baseline 7 ng/L (0-10) 04/19/24 10:37 Troponin T 120 Minute 6.00 ng/L (0-10) 04/19/24 12:34 Delta Troponin T -1.00 ABS# (0-10) L 04/19/24 12:34 Troponin T Hi Sens 6Hr 6.00 ng/L (0-10) 04/19/24 17:02 Troponin T Hi Sens 6Hr Delta -1.00 ng/L (0-12) L 04/19/24 17:02 C-Reactive Protein 14.4 mg/L (0.0-4.9) H 04/19/24 10:37 NT-Pro-B Natriuret Pep 59 pg/mL (0-125) 04/19/24 10:37 Total Protein 6.9 g/dL (6.6-8.7) 04/19/24 10:37 Albumin 4.5 g/dL (3.5-5.2) 04/19/24 10:37 Globulin 2.4 g/dL (1.3-4.6) 04/19/24 10:37 Procalcitonin 0.06 ng/mL (0-0.5) 04/19/24 10:37 TSH 0.86 uIU/mL (0.27-4.20) 04/19/24 10:37 Urine Color Yellow (Yellow) 04/19/24 11:54 Urine Appearance Clear (CLEAR) 04/19/24 11:54 Urine pH 6.5 (5-7) 04/19/24 11:54 Ur Specific [place] 1.019 (1.005-1.030) 04/19/24 11:54 Urine Protein Negative (Negative) 04/19/24 11:54 Urine Glucose (UA) Negative (Normal) 04/19/24 11:54 Urine Ketones Negative (Negative) 04/19/24 11:54 Urine Blood Negative (Negative) 04/19/24 11:54 Urine Nitrate Negative (Negative) 04/19/24 11:54 Urine Bilirubin Negative (Negative) 04/19/24 11:54 Urine Urobilinogen 1.0 mg/dL (Negative) 04/19/24 11:54 Ur Leukocyte Esterase Negative (Negative) 04/19/24 11:54 Urine RBC 0-2 /hpf (0-2) 04/19/24 11:54 Urine WBC 0-5 /hpf (0-5) 04/19/24 11:54 Ur Squamous Epith Cells 0-5 /hpf (0-5) 04/19/24 11:54 Amorphous Sediment Not Reportable 04/19/24 11:54 Urine Bacteria None seen /hpf (NONE) 04/19/24 11:54 Hyaline Casts 0-4 /lpf H 04/19/24 11:54 Coronavirus (PCR) Negative (Negative) 04/19/24 10:31 Influenza A (PCR) Negative (Negative) 04/19/24 10:31 Influenza Type B (PCR) Negative (Negative) 04/19/24 10:31 RSV (PCR) Negative (Negative) 04/19/24 10:31 All radiology interpretation(s) finalized by discharge Discharge Plan Discharge Patient Disposition: Placed in Observation Admit Provider: Mikel Kohler Clinical Impression: Acute exacerbation of chronic obstructive airways disease Discharge Diet: Cardiac Discharge Activity: Resume usual activity Coding Level of Care Code ED Boiler Room Helper for Susie Almeida
[2024-04-19] MEDS: ipratropium-albuterol 3 mL Neb INHALATION ×4 (10:21→20:34)
[2024-04-19 10:26] LABS: ABG PCO2 39.9 mmHg (35-45); Alveolar-Arterial Oxygen Gradi 5.8 mmHg (5-10); Arterial Blood Gas Hematocrit 42.9 % (37-47); Base Excess ABG -0.2 mmol/L (-2.0-2.0); Blood Gas Operator Identificat AMH; Blood Gas Sample Site Brachial, right; Blood Gas Sample Type Arterial; Carboxyhemoglobin 3.5 %THgb (0.4-20.1); HCO3 ABG 24.6 mmol/L (22-26); HGB O2 Sat 86.4 % (95-100); Ionized Calcium Level - ABG 1.2 mmol/L (1.1-1.4); Oxygen Device ROOM AIR; Oxygen Saturation ABG 90.4; PO2 ABG 56.1 mmHg (80.0-100.0); PO2 FiO2 Ratio Arterial Blood 267; Potassium Level - ABG 3.6 mmol/L (3.5-5.0)
[2024-04-19] MEDS: dexamethasone 10 mg/mL INJ IM (10:29)
[2024-04-19 10:49] LABS: Basophils # 0.1 10^3/uL (0.0-0.1); Basophils % 1.8 %; Eosinophils # 0.3 10^3/uL (0.0-0.8); Lymphocytes # 1.4 10^3/uL (0.8-4.8); Lymphocytes % 23.3 %; Mean Corpuscular HGB Conc 33.7 g/dL (30-55); Mean Corpuscular Hemoglobin 30.4 pg (27-33); Mean Corpuscular Volume 90.1 fl (85-98); Mean Platelet Volume 9.9 fL (7.4-10.4); Monocytes # 0.8 10^3/uL (0.2-0.9); Monocytes % 12.5 %; Neutrophils # 3.45 10^3/uL (1.8-7.7); Neutrophils % 56.9 %; Nucleated Red Blood Cells % 0 %; Platelet Count 205 10^3/cmm (157-399); Red Blood Count 4.77 10^6/uL (3.85-5.65); Red Cell Distribution Width 13.9 % (12.1-15.1); White Blood Count 6.06 10^3/uL (3.29-11.43)
[2024-04-19 11:09] LABS: Troponin(5th) Baseline 7 ng/L (0-10)
[2024-04-19 11:28] LABS: Alanine Aminotransferase 15 U/L (0-33); Albumin Level 4.5 g/dL (3.5-5.2); Alkaline Phosphatase 98 U/L (35-105); Anion Gap 15.9 (5-19); Aspartate Amino Transferase 16 U/L (0-32); Blood Urea Nitrogen 11 mg/dL (6-20); Calcium 9.1 mg/dL (8.5-10.5); Carbon Dioxide 24 mmol/L (22-29); Chloride 103 mmol/L (98-107); Creatinine Clr Calc Pharmacy 131.7196; Globulin 2.4 g/dL (1.3-4.6); Glomerular Filtration Rate 163.4 mL/min (90-130); Glucose 98 mg/dL (65-115); Osmolality Calculated 287 mOsm/kg (285-295); Potassium 3.9 mmol/L (3.5-5.1); Sodium 139 mmol/L (136-145); Total Bilirubin 0.4 mg/dL (0.15-1.2); Total Protein 6.9 g/dL (6.6-8.7)
[2024-04-19 11:31] LABS: Covid PCR NEGATIVE (Negative); Influenza A NEGATIVE (Negative); Influenza B NEGATIVE (Negative); Respiratory Syncytial Virus Ce NEGATIVE (Negative)
[2024-04-19 12:18] LABS: Bilirubin Urine Negative (Negative); Blood Urine Negative (Negative); Glucose Urine UA Negative (Normal); Ketones Urine Negative (Negative); Leukocyte Esterase Urine Negative (Negative); Nitrate Urine Negative (Negative); Protein Urine Negative (Negative); Specific Gravity, Urine 1.019 (1.005-1.030); Urine Appearance Clear (CLEAR); Urine Color Yellow (Yellow); pH Urine 6.5 (5-7)
[2024-04-19 12:23] LABS: Add Urine Microscopic? YES; Bacteria Urine None Seen /hpf; Hyaline Casts Urine 0-4 /lpf; RBC Urine 0-2 /hpf (0-2); Squamous Epithelial Cell Urine 0-5 /hpf (0-5); WBC Urine 0-5 /hpf (0-5)
--- NOTE | 2024-04-19 14:06 | PC.NURSE ---
This nurse took report from SABRINA Banks in ER at 1405. Awaiting for room to be cleaned before pt can be transferred to our floor. Roughly 30mins.
--- NOTE | 2024-04-19 14:18 | PM.HP ---
Providers/Chief Complaint Admitting Physician: Mikel Kohler MD Primary Care Provider: Lane Brown MD Chief Complaint: sob, shacky, feel like passing out History of Present Illness Andra Johnson is a 58 year old female with a past medical history of COPD, smoking, history of CAD, who presents [facility] for shortness of breath, cough, fatigue, malaise for the last 3 days. Currently patient is on 2 L, she does not use oxygen at home, has tachypnea, wheezing in all lung escalante, no nasal flaring, no intercostal retractions. Patient tells me that for the last 3 days she has had cough, shortness of breath, shortness of breath with exertion, wheezing, no chest pain, no palpitations, no sick contacts, no hemoptysis Review of Systems Const: Reports: fatigue and malaise; Denies: fever(s), chills or body aches Card: Denies: chest pain Resp: Reports: dyspnea GI: Denies: abdominal pain Medications/Allergies Home Medications Medication Instructions Recorded Confirmed Last Taken Type acetaminophen 325 mg tablet 325 mg PO Q6H PRN pain #10 tabs 08/30/21 04/19/24 04/18/24 Rx (Tylenol) aspirin 81 mg tablet,delayed 81 mg PO DAILY 90 days #90 tabs 08/25/22 04/19/24 04/18/24 Rx release nitroglycerin 0.4 mg sublingual 0.4 mg sublingual Q5M PRN chest 02/05/23 04/19/24 Unknown Rx tablet pain #30 tabs fluticasone propionate 50 1 spray intranasal Q12H PRN nasal 09/21/23 04/19/24 04/18/24 Rx mcg/actuation nasal congestion #16 grams spray,suspension (Flonase Allergy Relief) albuterol sulfate 2.5 mg/3 mL See Rx Instructions .Route 11/16/23 04/19/24 04/18/24 Rx (0.083 %) solution for nebulization .COMPLEX #180 mL omeprazole 20 mg capsule,delayed 20 mg PO DAILY PRN acid reflux #90 12/28/23 04/19/24 04/18/24 Rx release caps albuterol sulfate 90 mcg/actuation See Rx Instructions .Route 02/29/24 04/19/24 04/18/24 Rx aerosol inhaler (Ventolin HFA) .COMPLEX #18 grams atorvastatin 20 mg tablet 20 mg PO DAILY 04/19/24 04/19/24 04/18/24 History celecoxib 200 mg capsule 200 mg PO BID PRN Pain 04/19/24 04/19/24 04/18/24 History fluticasone 250 mcg-salmeterol 50 1 inh inhalation Q12H 04/19/24 04/19/24 04/18/24 History mcg/dose blistr powdr for inhalation (Advair Diskus) oxybutynin chloride 10 mg 10 mg PO QAM 04/19/24 04/19/24 04/19/24 History tablet,extended release 24 hr sertraline 100 mg tablet 100 mg PO DAILY 04/19/24 04/19/24 04/18/24 History Allergies Allergy/AdvReac Type Severity Reaction Status Date / Time Penicillins Allergy ALGY-Swell Verified 04/19/24 09:46 Lip/Tongue/Throat PFSH Acute PFSH: Medical History Lip cyst Cutaneous horn Stress incontinence, female Sacroiliac inflammation Back pain GERD (gastroesophageal reflux disease) COPD with asthma Increased anion gap metabolic acidosis Smoking addiction Quit smoking 08/25/2021 after 1-2 ppd for 40+ years then started back Hypotension Non-ST elevation [place] (NSTEMI) 08/28/2021 NSTEMI Hospitalization, Cardiac cath, CTA, Dr. Bajwa Sprain and strain of lumbosacral joint/ligament Psoriasis and similar disorders Anxiety and depression Surgical History Hx of colonoscopy Dr. Head 04/16/2022 normal, 10 yr repeat History of ear surgery Hx of hysterectomy Family History Other Cancer Diabetes Stroke Social History Smoking and tobacco/nicotine status: former use of tobacco/nicotine Quit status (tobacco/nicotine): considering quitting Alcohol intake: current Alcohol intake frequency: few times a week Substance/Drug Use: never Marital status: Legally Number of children: 3 Number of grandchildren: 4 Current occupational status: unemployed Vitals/I&O/Wt Last Vital Signs Temp 98.0 F 04/19/24 09:38 Pulse 83 04/19/24 13:56 Resp 24 H 04/19/24 11:51 BP 111/88 04/19/24 13:56 Pulse Ox 94 04/19/24 13:56 O2 Del Method Room Air 04/19/24 13:56 O2 Flow Rate 2 04/19/24 12:09 Weight last 48 hrs Weight 62.596 kg Physical Exam Const: COMMON NORMALS: no acute distress and patient oriented x3 HENMT: COMMON NORMALS: normocephalic HEAD & SCALP: normocephalic Neck/C-Spine: COMMON NORMALS: no JVD Resp: COMMON NORMALS: normal respiratory effort, No retractions and No use of accessory muscles AUSCULTATION: wheezes Cardio: COMMON NORMALS: regular rate, regular rhythm, S1 normal heart sound present and S2 normal heart sound present RATE: regular rate RHYTHM: regular rhythm HEART SOUNDS: S1 normal heart sound present and S2 normal heart sound present GI: COMMON NORMALS: Normal to inspection, nondistended, normoactive bowel sounds present, Soft to palpation and non-tender Extremity: COMMON NORMALS: no calf tenderness and no pedal edema Neuro: COMMON NORMALS: patient oriented x3, CN's II-XII intact bilaterally and moves all extremities Psych: COMMON NORMALS: mental status grossly normal Data 04/19/24 10:37 04/19/24 10:37 A&P Assessment and plan (1) Chronic obstructive asthma with exacerbation: Plan COPD exacerbation ? Plan ? Doxycycline 100 twice daily ? DuoNeb/budesonide # Solu-Medrol 40 mg IV every 8 hours ? Monitor respiratory status closely ? Oxygen therapy ? Full code # Lovenox for DVT prophylaxis Attestations Medical Necessity Statement*: Patient requires hospitalization, outpatient observation, for acute hypoxia secondary to COPD exacerbation Diagnoses Chronic obstructive asthma with exacerbation J44.1; J45.901
[2024-04-19 15:21] LABS: NT Pro B Type Natriuretic Pept 59 pg/mL (0-125); Procalcitonin 0.06 ng/mL (0-0.5)
[2024-04-19 15:38] LABS: C Reactive Protein 14.4 mg/L (0.0-4.9); Thyroid Stimulating Hormone 0.86 uIU/mL (0.27-4.20)
--- NOTE | 2024-04-19 16:06 | ECG_ITS ---
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
[2024-04-19] MEDS: enoxaparin 40 mg/0.4 mL Syringe SUBCUT (17:25)
[2024-04-19] MEDS: doxycycline 100 mg Tablet PO (17:25)
[2024-04-19] MEDS: pantoprazole 40 mg SDV IVP (17:25)
[2024-04-19] MEDS: budesonide 0.5 mg/2 mL Neb INHALATION (20:34)
[2024-04-19] MEDS: sertraline 100 mg Tablet PO (21:31)
[2024-04-19] MEDS: morphine 4 mg/mL SDV 1 mL 2 MG IVP (21:31)
[2024-04-20] VITALS (15 sets, daily range): BP systolic 109–132; BP diastolic 67–77; PULSE 75–89; RESP 15–18; TEMP 36.4–36.8; O2SAT 90–97
[2024-04-20] MEDS: acetaminophen 325 mg Tablet PO (02:34)
[2024-04-20] MEDS: ipratropium-albuterol 3 mL Neb INHALATION ×5 (02:49→19:35)
[2024-04-20] MEDS: methylPREDNISolone sod succ 40 mg/mL INJ IVP ×3 (05:32→21:09)
[2024-04-20] MEDS: oxybutynin chloride XL 5 MG TABLET 10 MG PO (05:32)
[2024-04-20 06:13] LABS: Basophils % 0.5 %; Hematocrit 40.5 % (36-47); Lymphocytes # 1.5 10^3/uL (0.8-4.8); Lymphocytes % 27.3 %; Mean Corpuscular HGB Conc 31.4 g/dL (30-55); Mean Corpuscular Hemoglobin 29.3 pg (27-33); Mean Corpuscular Volume 93.3 fl (85-98); Mean Platelet Volume 10.1 fL (7.4-10.4); Monocytes # 0.9 10^3/uL (0.2-0.9); Monocytes % 15.4 %; Neutrophils # 3.13 10^3/uL (1.8-7.7); Neutrophils % 56.3 %; Nucleated Red Blood Cells % 0 %; Platelet Count 214 10^3/cmm (157-399); Red Blood Count 4.34 10^6/uL (3.85-5.65); Red Cell Distribution Width 13.9 % (12.1-15.1); White Blood Count 5.57 10^3/uL (3.29-11.43)
[2024-04-20 06:35] LABS: Anion Gap 15.9 (5-19); Blood Urea Nitrogen 13 mg/dL (6-20); Carbon Dioxide 21 mmol/L (22-29); Chloride 104 mmol/L (98-107); Glomerular Filtration Rate 163.4 mL/min (90-130); Glucose 133 mg/dL (65-115); Osmolality Calculated 286 mOsm/kg (285-295); Potassium 3.9 mmol/L (3.5-5.1); Sodium 137 mmol/L (136-145)
[2024-04-20] MEDS: budesonide 0.5 mg/2 mL Neb INHALATION ×2 (08:01→19:35)
[2024-04-20] MEDS: atorvastatin 40 mg Tablet 20 MG PO (09:19)
[2024-04-20] MEDS: doxycycline 100 mg Tablet PO ×2 (09:19→18:38)
[2024-04-20] MEDS: aspirin 81 mg EC Tablet PO (09:19)
--- NOTE | 2024-04-20 15:24 | P.PN_ITS ---
Subjective 2 Subjective: Patient was seen this morning, she does report shortness of breath with exertion, currently on 2 L, continues to complain of wheezing Vitals/I&O/Wt Last Vital Signs Temp 97.7 F 04/20/24 11:13 Pulse 83 04/20/24 11:13 Resp 16 04/20/24 11:13 BP 121/69 04/20/24 11:13 Pulse Ox 91 04/20/24 11:13 O2 Del Method Nasal Cannula 04/20/24 11:13 O2 Flow Rate 2 04/20/24 11:13 04/20/24 04/20/24 04/20/24 06:59 14:59 22:59 Intake Total 480 / 820 880 / 880 Output Total 200 / 600 Balance 280 / 220 880 / 880 Weight last 48 hrs Weight 66.451 kg Weight 62.596 kg Weight 62.596 kg Physical Exam 2 Const: COMMON NORMALS: no acute distress and patient oriented x3 Resp: COMMON NORMALS: normal respiratory effort, No retractions, No use of accessory muscles and clear to auscultation bilaterally AUSCULTATION: clear to auscultation bilaterally Cardio: COMMON NORMALS: regular rate, regular rhythm, S1 normal heart sound present and S2 normal heart sound present RATE: regular rate RHYTHM: r egular rhythm HEART SOUNDS: S1 normal heart sound present and S2 normal heart sound present GI: COMMON NORMALS: Normal to inspection, nondistended, normoactive bowel sounds present and non-tender Extremity: COMMON NORMALS: no pedal edema Neuro: COMMON NORMALS: patient oriented x3 Psych: COMMON NORMALS: mental status grossly normal Data 04/20/24 05:54 04/20/24 05:54 A&P Assessment and plan (1) Chronic obstructive asthma with exacerbation: Plan COPD exacerbation ? Plan ? Doxycycline 100 twice daily ? DuoNeb/budesonide # Solu-Medrol 40 mg IV every 8 hours ? Monitor respiratory status closely ? Oxygen therapy ? Full code # Lovenox for DVT prophylaxis Attestations 2 Medical Necessity Statement*: Patient requires hospitalization for COPD exacerbation Diagnoses Chronic obstructive asthma with exacerbation J44.1; J45.901
[2024-04-20] MEDS: enoxaparin 40 mg/0.4 mL Syringe SUBCUT (18:38)
[2024-04-20] MEDS: pantoprazole 40 mg SDV IVP (18:38)
[2024-04-20] MEDS: sertraline 100 mg Tablet PO (21:08)
[2024-04-21] VITALS (10 sets, daily range): BP systolic 122–146; BP diastolic 70–78; PULSE 64–92; RESP 15–18; TEMP 36.4–36.7; O2SAT 87–94
[2024-04-21] MEDS: methylPREDNISolone sod succ 40 mg/mL INJ IVP (05:56)
[2024-04-21] MEDS: oxybutynin chloride XL 5 MG TABLET 10 MG PO (05:57)
[2024-04-21 06:00] LABS: Basophils % 0.2 %; Hematocrit 45.8 % (36-47); Lymphocytes # 1.3 10^3/uL (0.8-4.8); Lymphocytes % 15.7 %; Mean Corpuscular HGB Conc 31.7 g/dL (30-55); Mean Corpuscular Hemoglobin 29.5 pg (27-33); Mean Corpuscular Volume 93.3 fl (85-98); Monocytes # 0.8 10^3/uL (0.2-0.9); Monocytes % 9.6 %; Neutrophils # 6.07 10^3/uL (1.8-7.7); Nucleated Red Blood Cells % 0 %; Platelet Count 294 10^3/cmm (157-399); Red Blood Count 4.91 10^6/uL (3.85-5.65); White Blood Count 8.21 10^3/uL (3.29-11.43)
[2024-04-21 06:33] LABS: Anion Gap 15.3 (5-19); Blood Urea Nitrogen 17 mg/dL (6-20); Calcium 10.4 mg/dL (8.5-10.5); Carbon Dioxide 28 mmol/L (22-29); Chloride 102 mmol/L (98-107); Creatinine Clr Calc Pharmacy 90.2706; Glomerular Filtration Rate 102.3 mL/min (90-130); Glucose 115 mg/dL (65-115); Osmolality Calculated 292 mOsm/kg (285-295); Potassium 5.3 mmol/L (3.5-5.1); Sodium 140 mmol/L (136-145)
[2024-04-21] MEDS: budesonide 0.5 mg/2 mL Neb INHALATION (07:43)
[2024-04-21] MEDS: ipratropium-albuterol 3 mL Neb INHALATION ×2 (07:43→11:25)
[2024-04-21] MEDS: acetaminophen 325 mg Tablet PO (09:12)
[2024-04-21] MEDS: aspirin 81 mg EC Tablet PO (10:01)
[2024-04-21] MEDS: doxycycline 100 mg Tablet PO (10:01)
[2024-04-21] MEDS: atorvastatin 40 mg Tablet 20 MG PO (10:02)
--- NOTE | 2024-04-21 12:30 | P.DS_ITS ---
Discharge Providers Date of Admission: 04/20/24 15:24 Date of Discharge: April 21, 2024 Attending Provider at Admission: Mikel Kohler MD Attending Provider at Discharge: Mikel Kohler MD Primary Care Provider: Lane Brown MD Diagnoses at Discharge Discharge Diagnosis (1) Chronic obstructive asthma with exacerbation: Status: Inactive Reason for Visit Reason for Visit: sob, shacky, feel like passing out Hospital Course Hospital Course Andra Johnson is a 58 year old female with a past medical history of COPD, smoking, history of CAD, who presents [facility] for shortness of breath, cough, fatigue, malaise for the last 3 days. Currently patient is on 2 L, she does not use oxygen at home, has tachypnea, wheezing in all lung escalante, no nasal flaring, no intercostal retractions. Patient tells me that for the las t 3 days she has had cough, shortness of breath, shortness of breath with exertion, wheezing, no chest pain, no palpitations, no sick contacts, no hemoptysis Patient was admitted to [facility] for COPD exacerbation, requiring IV steroids, oxygen therapy, doxycycline, patient overall clinically improved, discharged home with close follow-up with primary care provider as outpatient Physical Exam Const: COMMON NORMALS: no acute distress and patient oriented x3 Resp: COMMON NORMALS: normal respiratory effort, No retractions, No use of accessory muscles and clear to auscultation bilaterally AUSCULTATION: clear to auscultation bilaterally Cardio: COMMON NORMALS: regular rate, regular rhythm, S1 normal heart sound present and S2 normal heart sound present RATE: regular rate RHYTHM: regular rhythm HEART SOUNDS: S1 normal heart sound present and S2 normal heart sound present GI: COMMON NORMALS: Normal to inspection, nondistended, normoactive bowel sounds present and non-tender Extremity: COMMON NORMALS: no pedal edema Neuro: COMMON NORMALS: patient oriented x3 Psych: COMMON NORMALS: mental status grossly normal Discharge Data Studies Completed and Pending Completed Studies During Hospitalization Category Date Time Status XR chest 1V portable [id number] Stat Exams 04/19/24 10:06 Completed Pending at discharge Category Date Time Status Basic Metabolic Panel AM LABS Lab 04/22/24 04:00 Ordered Complete Blood Count w/Auto AM LABS Lab 04/22/24 04:00 Ordered Radiology Impressions Chest X-Ray 04/19/24 10:06 IMPRESSION: 1. Negative chest. Laboratory Results WBC 8.21 10^3/uL (3.29-11.43) 04/21/24 05:46 RBC 4.91 10^6/uL (3.85-5.65) 04/21/24 05:46 Hgb 14.50 g/dL (11.27-16.99) 04/21/24 05:46 Hct 45.8 % (36-47) 04/21/24 05:46 MCV 93.3 fl (85-98) 04/21/24 05:46 MCH 29.5 pg (27-33) 04/21/24 05:46 MCHC 31.7 g/dL (30-55) 04/21/24 05:46 RDW 14.0 % (12.1-15.1) 04/21/24 05:46 Plt Count 294 10^3/cmm (157-399) D 04/21/24 05:46 MPV 10.0 fL (7.4-10.4) 04/21/24 05:46 Neut % (Auto) 74.0 % 04/21/24 05:46 Lymph % (Auto) 15.7 % 04/21/24 05:46 [place] % (Auto) 9.6 % 04/21/24 05:46 Eos % (Auto) 0.0 % 04/21/24 05:46 Baso % (Auto) 0.2 % 04/21/24 05:46 Neut # (Auto) 6.07 10^3/uL (1.8-7.7) 04/21/24 05:46 Lymph # (Auto) 1.3 10^3/uL (0.8-4.8) 04/21/24 05:46 [place] # (Auto) 0.8 10^3/uL (0.2-0.9) 04/21/24 05:46 Eos # (Auto) 0.0 10^3/uL (0.0-0.8) 04/21/24 05:46 Baso # (Auto) 0.0 10^3/uL (0.0-0.1) 04/21/24 05:46 Nucleated RBC % (auto) 0 % 04/21/24 05:46 Nucleated RBCs # 0.0 /100WBC 04/21/24 05:46 Specimen Type Arterial 04/19/24 10:15 Sample Site Brachial, right 04/19/24 10:15 ABG pH 7.40 (7.35-7.45) 04/19/24 10:15 ABG pCO2 39.9 mmHg (35-45) 04/19/24 10:15 ABG pO2 56.1 mmHg (80.0-100.0) L 04/19/24 10:15 ABG PO2/FiO2 Ratio 267 04/19/24 10:15 ABG HCO3 24.6 mmol/L (22-26) 04/19/24 10:15 ABG O2 Saturation 90.4 04/19/24 10:15 ABG Base Excess -0.2 mmol/L (-2.0-2.0) 04/19/24 10:15 Dion Test N/a 04/19/24 10:15 A-a O2 Gradient 5.8 mmHg (5-10) 04/19/24 10:15 Hematocrit 42.9 % (37-47) 04/19/24 10:15 Hgb O2 Saturation 86.4 % (95-100) L 04/19/24 10:15 Carboxyhemoglobin 3.5 %THgb (0.4-20.1) 04/19/24 10:15 Methemoglobin 1.0 % (0.4-1.5) 04/19/24 10:15 Total Hemoglobin 14.0 g/dL (12-16) 04/19/24 10:15 Sodium 141.0 mmol/L (131-143) 04/19/24 10:15 Potassium 3.6 mmol/L (3.5-5.0) 04/19/24 10:15 Glucose 99.0 mg/dL (70-115) 04/19/24 10:15 Ionized Calcium 1.2 mmol/L (1.1-1.4) 04/19/24 10:15 O2 Delivery Device Room air 04/19/24 10:15 FiO2 21.0 % 04/19/24 10:15 Stock Tracer ID Amh 04/19/24 10:15 Sodium 140 mmol/L (136-145) 04/21/24 05:41 Potassium 5.3 mmol/L (3.5-5.1) H 04/21/24 05:41 Chloride 102 mmol/L (98-107) 04/21/24 05:41 Carbon Dioxide 28 mmol/L (22-29) 04/21/24 05:41 Anion Gap 15.3 (5-19) 04/21/24 05:41 BUN 17 mg/dL (6-20) 04/21/24 05:41 Creatinine 0.6 mg/dL (0.5-0.9) 04/21/24 05:41 GFR Calculation 102.3 mL/min (90-130) 04/21/24 05:41 Glucose 115 mg/dL (65-115) 04/21/24 05:41 Calculated Osmolality 292 mOsm/kg (285-295) 04/21/24 05:41 Calcium 10.4 mg/dL (8.5-10.5) 04/21/24 05:41 Total Bilirubin 0.4 mg/dL (0.15-1.2) 04/19/24 10:37 AST 16 U/L (0-32) 04/19/24 10:37 ALT 15 U/L (0-33) 04/19/24 10:37 Alkaline Phosphatase 98 U/L (35-105) 04/19/24 10:37 Troponin T Baseline 7 ng/L (0-10) 04/19/24 10:37 Troponin T 120 Minute 6.00 ng/L (0-10) 04/19/24 12:34 Delta Troponin T -1.00 ABS# (0-10) L 04/19/24 12:34 Troponin T Hi Sens 6Hr 6.00 ng/L (0-10) 04/19/24 17:02 Troponin T Hi Sens 6Hr Delta -1.00 ng/L (0-12) L 04/19/24 17:02 C-Reactive Protein 14.4 mg/L (0.0-4.9) H 04/19/24 10:37 NT-Pro-B Natriuret Pep 59 pg/mL (0-125) 04/19/24 10:37 Total Protein 6.9 g/dL (6.6-8.7) 04/19/24 10:37 Albumin 4.5 g/dL (3.5-5.2) 04/19/24 10:37 Globulin 2.4 g/dL (1.3-4.6) 04/19/24 10:37 Procalcitonin 0.06 ng/mL (0-0.5) 04/19/24 10:37 TSH 0.86 uIU/mL (0.27-4.20) 04/19/24 10:37 Urine Color Yellow (Yellow) 04/19/24 11:54 Urine Appearance Clear (CLEAR) 04/19/24 11:54 Urine pH 6.5 (5-7) 04/19/24 11:54 Ur Specific [place] 1.019 (1.005-1.030) 04/19/24 11:54 Urine Protein Negative (Negative) 04/19/24 11:54 Urine Glucose (UA) Negative (Normal) 04/19/24 11:54 Urine Ketones Negative (Negative) 04/19/24 11:54 Urine Blood Negative (Negative) 04/19/24 11:54 Urine Nitrate Negative (Negative) 04/19/24 11:54 Urine Bilirubin Negative (Negative) 04/19/24 11:54 Urine Urobilinogen 1.0 mg/dL (Negative) 04/19/24 11:54 Ur Leukocyte Esterase Negative (Negative) 04/19/24 11:54 Urine RBC 0-2 /hpf (0-2) 04/19/24 11:54 Urine WBC 0-5 /hpf (0-5) 04/19/24 11:54 Ur Squamous Epith Cells 0-5 /hpf (0-5) 04/19/24 11:54 Amorphous Sediment Not Reportable 04/19/24 11:54 Urine Bacteria None seen /hpf (NONE) 04/19/24 11:54 Hyaline Casts 0-4 /lpf H 04/19/24 11:54 Coronavirus (PCR) Negative (Negative) 04/19/24 10:31 Influenza A (PCR) Negative (Negative) 04/19/24 10:31 Influenza Type B (PCR) Negative (Negative) 04/19/24 10:31 RSV (PCR) Negative (Negative) 04/19/24 10:31 Vitals Last Vital Signs Temp 97.9 F 04/21/24 12:00 Pulse 92 04/21/24 12:00 Resp 16 04/21/24 12:00 BP 135/70 04/21/24 12:00 Pulse Ox 88 L 04/21/24 12:00 O2 Del Method Room Air 04/21/24 12:00 O2 Flow Rate 2 04/21/24 11:25 Discharge Plan Discharge Patient Disposition: Home Condition: Stable Prescriptions: New doxycycline hyclate 100 mg tablet 100 mg PO BID 7 Days Qty: 14 0RF Continued aspirin 81 mg tablet,delayed release (DR/EC) 81 mg PO DAILY 90 Days Qty: 90 3RF fluticasone propionate [Flonase Allergy Relief] 50 mcg/actuation spray,suspension 1 spray intranasal Q12H PRN (Reason: nasal congestion) Qty: 16 5RF Rx Instructions: administer into each nostril nitroglycerin 0.4 mg tablet, sublingual 0.4 mg sublingual Q5M PRN (Reason: chest pain) Qty: 30 2RF Rx Instructions: do not exceed 3 doses per episode albuterol sulfate 2.5 mg /3 mL (0.083 %) solution for nebulization See Rx Instructions .ROUTE .COMPLEX Qty: 180 1RF Dose Instruction: INHALE THE CONTENTS OF ONE VIAL USING NEBULIZER EVERY FOUR HOURS NEEDED FOR SHORTNESS OF BREATH Rx Instructions: INHALE THE CONTENTS OF ONE VIAL USING NEBULIZER EVERY FOUR HOURS NEEDED FOR SHORTNESS OF BREATH omeprazole 20 mg capsule,delayed release(DR/EC) 20 mg PO DAILY PRN (Reason: acid reflux) Qty: 90 1RF atorvastatin 20 mg tablet 20 mg PO DAILY oxybutynin chloride 10 mg tablet extended release 24hr 10 mg PO QAM acetaminophen [Tylenol] 325 mg tablet 325 mg PO Q6H PRN (Reason: pain) Qty: 10 0RF Changed fluticasone propion-salmeterol 250-50 mcg/dose blister with device 1 inh inhalation Q12H Qty: 60 0RF albuterol sulfate [Ventolin HFA] 90 mcg/actuation HFA aerosol inhaler 1 inh inhalation Q4H PRN (Reason: shortness of breath or wheezing) 30 Days Qty: 18 0RF Rx Instructions: 1 inh inhaled; Discontinued celecoxib 200 mg capsule 200 mg PO BID PRN (Reason: Pain) No Action sertraline 100 mg tablet 100 mg PO DAILY Qty: 30 2RF buspirone 7.5 mg tablet 7.5 mg PO TID Qty: 60 0RF Discharge Orders: Discharge Order (Routine); Ordered 04/21/24 Ordered By: Mikel Kohler Other Ambulatory Orders: DME: Oxygen (Order) Location: None Selected Ordered By: Mikel Kohler Referrals: Lane Brown MD [Primary Care Provider] - 04/26/24 9:30 am Discharge Diet: Cardiac Discharge Activity: Resume usual activity Patient Instructions: Doxycycline (By mouth), Prednisone (By mouth), COPD (Chronic Obstructive Pulmonary Disease) (DC), Opioid Safety Activity Restrictions/Additional Instructions: - Please stop smoking -See primary care provider in 1 week Discharge Attestations Time Spent in Discharge Care*: greater than 30 min Quality Metrics Clinical Quality Measures [ No reported AMI, CVA or VTE this stay] Coding Level of Care Code 64536 Total time (in minutes) for Discharge: 45 Diagnoses Chronic obstructive asthma with exacerbation J44.1; J45.901
== END 2024-04-21 13:50 | disposition home or self-care (01) | DRG 191 ==
LOC: ER 12:30 → MEDSURG 13:44
PROVIDERS: Admitting Provider Family Medicine; Emergency Provider Family Medicine; PCP Family Medicine Adult Medicine; Visit Provider Family Medicine
DX: J44.1 Chronic obstructive pulmonary disease with (acute) exacerbation (principal); J45.901 Unspecified asthma with (acute) exacerbation; F17.200 Nicotine dependence, unspecified, uncomplicated; I25.10 Atherosclerotic heart disease of native coronary artery without angina pectoris; K21.9 Gastro-esophageal reflux disease without esophagitis; I25.2 Old myocardial infarction; L40.9 Psoriasis, unspecified; F41.9 Anxiety disorder, unspecified; F32.A Depression, unspecified; R09.02 Hypoxemia; Z79.82 Long term (current) use of aspirin; Z79.51 Long term (current) use of inhaled steroids; Z88.0 Allergy status to penicillin; Z90.710 Acquired absence of both cervix and uterus; Z80.9 Family history of malignant neoplasm, unspecified; Z83.3 Family history of diabetes mellitus; Z82.3 Family history of stroke
CPT/HCPCS: 0241U; 36415; 36600; 71045; 80048; 80051; 80053; 81001; 82330; 82805; 83880; 84145; 84443; 84484; 85025; 86140; 93005; 94640; 94760; 96372; G0378; J1100; J1650; J2270; J2470; J2919; J7626

== ENCOUNTER → 2024-10-18 13:52 | Outpatient (BNVA) | payer MEDICARE, BC, SELFPAY | DX: E78.5 Hyperlipidemia, unspecified (principal); K76.0 Fatty (change of) liver, not elsewhere classified; N39.3 Stress incontinence (female) (male); K21.9 Gastro-esophageal reflux disease without esophagitis | CPT/HCPCS: 80053; 80061; 81000; 83690 ==

== ENCOUNTER 2024-11-02 13:02 | Outpatient (CLI) | payer MEDICARE, MEDICAID, SELFPAY ==
--- NOTE | 2024-11-02 14:30 | CT_ITS ---
WS: [id number] CT ABDOMEN AND PELVIS WITH CONTRAST HISTORY: right upper quad pain TECHNIQUE: Imaging performed of the abdomen and pelvis with IV contrast. Single phase imaging of the abdomen. Coronal and sagittal reformats are submitted. All CT scans at [facility] use at least one of these dose optimization techniques: automated exposure control; mA and/or kV adjustment per patient size (includes targeted exams where dose is matched to clinical indication); or iterative reconstruction. IV CONTRAST: Omnipaque 350; 100 mL IV. Oral contrast: Yes. DLP: 348.89 mGy.cm COMPARISON: 04/06/2022 Lower thorax: 2 mm micronodule at the RIGHT lung base. Heart is normal size. No hiatal hernia. Liver/biliary system: Normal size with no intrahepatic dilatation. Gallbladder: Normal. No gallstones or wall thickening. No pericholecystic fluid. Pancreas: Mild atrophy. Prominent ampulla of the bladder also present on the prior study. Spleen: Normal size spleen. No mass or infarct. Adrenal glands: Normal. Right kidney: Normal. Left kidney: 2 LEFT renal cysts. The largest 2.8 cm from the mid kidney. No renal obstruction. Aorta: Mild atherosclerosis with no aneurysm. Lymphadenopathy: None. Free fluid: None. GI tract: Stomach is well distended with oral contrast. No small bowel obstruction. Moderate diffuse constipation. No evidence for appendicitis. No evidence for diverticulosis. Abdominal wall: Small ventral abdominal wall hernia contains fat. Pelvis: Prior hysterectomy. No mass or adenopathy. Urinary bladder is negative. Bones: Stable L1 minimal compression fracture. CT/CT abdomen pelvis w con* [id number] IMPRESSION: 1. No acute abdominal or pelvic abnormalities are identified. 2. No GI tract obstruction or diverticulitis. 3. No renal obstruction. 4. LEFT renal cysts, stable. 5. Small fat-containing umbilical hernia. 6. Prominent ampulla of Vater. There is prominent soft tissue projecting into the small bowel lumen. No common bile duct obstruction. Nearly similar to the p rior study from 2021. Clinically if further evaluation is thought necessary MRC P can be obtained.
[2024-11-02] MEDS: iohexol 350 mg/mL 500 mL Btl (per mL) PO (15:28)
[2024-11-02] MEDS: iohexol 350 mg/mL 500 mL Btl (per mL) IV (16:17)
== END 2024-11-02 13:03 | disposition home or self-care (01) ==
LOC: RAD 13:04
DX: R10.11 Right upper quadrant pain (principal); N28.1 Cyst of kidney, acquired; K42.9 Umbilical hernia without obstruction or gangrene; R93.3 Abnormal findings on diagnostic imaging of other parts of digestive tract
CPT/HCPCS: 74177

== ENCOUNTER 2024-11-21 07:24 | Outpatient (CLI) | payer MEDICARE, MEDICAID, SELFPAY ==
--- NOTE | 2024-11-21 07:15 | MR_ITS ---
WS: [id number] MRI/MRCP OF THE ABDOMEN WITHOUT GADOLINIUM ENHANCEMENT TECHNIQUE: Coronal T2 Fase BH, Axial T2 Fase BH, Axial T2 FS BH, Zxial 3D Mcbride BH, Axial DWI BH, 2D MRCP Radial BH, 3D MRCP (Resp), and Axial 3D Dyn BH Post sequences. CLINICAL INFORMATION: abnormal CT reading COMPARISON: CT 11/02/2024 and 04/06/2022 FINDINGS: No intrahepatic biliary ductal dilatation. Normal common bile duct. Normal pancreatic duct. No focal abnormalities to correspond to the CT findings. No mass visualized at the ampulla of Vater. If continued concern this can be further evaluated with ERCP. No other suspicious findings. Fatty liver. Normal portal vein and splenic vein. Normal pancreas. Adrenal glands are normal. Bilateral renal cysts largest on the LEFT measuring 2.8 cm. Normal caliber upper abdominal aorta. MR/MR MRCP [id number] Impression: No focal obstructing lesions visualized at the ampulla of Vater. If continued c oncern, this can be further evaluated with ERCP.
== END 2024-11-21 07:25 | disposition home or self-care (01) ==
DX: R93.5 Abnormal findings on diagnostic imaging of other abdominal regions, including retroperitoneum (principal)
CPT/HCPCS: 74181

== ENCOUNTER → 2024-11-30 09:05 | Outpatient (BNVA) | payer MEDICARE, MEDICAID, SELFPAY | PROVIDERS: Visit Provider Student in an Organized Health Care Education/Training Program | DX: R03.0 Elevated blood-pressure reading, without diagnosis of hypertension (principal); K21.9 Gastro-esophageal reflux disease without esophagitis; R12 Heartburn | CPT/HCPCS: 99204 ==

== ENCOUNTER 2025-01-11 10:40 | Day surgery (SDC) | payer MEDICARE, MEDICAID, SELFPAY ==
[2025-01-11 11:11] VITALS: BP 122/78; PULSE 75; RESP 16; TEMP 36.1; O2SAT 92
--- NOTE | 2025-01-11 11:50 | P.HP_ITS ---
Same Day Surgery H&P Indication for Procedure/HPI DATE OF PROCEDURE: January 11, 2025 CHIEF COMPLAINT/INDICATIONFOR SURGICAL PROCEDURE: abdominal pain PREOP DIAGNOSIS: abdominal pain PLANNED PROCEDURE: Operation Date: 01/11/25 12:15 Proposed Procedures p EGD with Biopsy [id number], K21.9 R12(Not Applicable) - Timothy Rutherford MD Medications/Allergies* Home Medications ?Medication ?Instructions ?Recorded ?Confirmed ?Type albuterol sulfate 2.5 mg/3 mL 2.5 mg inhalation Q4H UT N 01/10/25 01/10/25 History (0.083 %) solution for nebulization Shortness Of Breat h buspirone 7.5 mg tablet 7.5 mg PO TID 01/10/2501/10 History fluticasone 250 mcg-salmeterol 50 1 inh inhalation Q12 H 01/10/25 01/10/25 History mcg/dose blistr powdr for inhalation Allergies/Adverse Reactions Allergy/AdvReac Type Severity Reaction Status Date / Time Penicillins Allergy ALGY-Swell Verified 01/08/25 08:39 Lip/Tongue/Throat Current Medications: Generic Name Dose Route Start Last Admin Trade Name Freq PRN Reason Stop Dose Admin Sodium Chloride 1,000 mls @ 15 mls/hr 01/11/25 11:02 01/11/25 11:26 Sodium Chloride 0.9% IV 01/12/25 11:01 15 mls/hr .Q24H PRN Administration COLONOSCOPY FLUIDS Pertinent History/Comorbid Conditions* Medical History (Updated 11/23/24 @ 14:55 by Inez Griffin NP) Lip cyst Cutaneous horn Stress incontinence, female Sacroiliac inflammation Back pain GERD (gastroesophageal reflux disease) COPD with asthma Increased anion gap metabolic acidosis Smoking addiction Quit smoking 08/25/2021 after 1-2 ppd for 40+ years then started back Hypotension Non-ST elevation [place] (NSTEMI) 08/28/2021 NSTEMI Hospitalization, Cardiac cath, CTA, Dr. Bajwa Sprain and strain of lumbosacral joint/ligament Psoriasis and similar disorders Anxiety and depression Surgical History (Updated 09/21/23 @ 08:[address] Brown MD) Hx of colonoscopy Dr. Head 04/16/2022 normal, 10 yr repeat History of ear surgery Hx of hysterectomy Family History (Updated 09/24/20 @ 14:56 by Renita Mccracken LPN) Diabetes Cancer Stroke Social History Smoking and tobacco/nicotine status: current every day tobacco/nicotine user cigarettes Packs smoked per day: 1 Quit status (tobacco/nicotine): considering quitting Alcohol intake: current Alcohol intake frequency: few times a week Substance/Drug Use: never Marital status: Legally Number of children: 3 Number of grandchildren: 4 Current occupational status: unemployed Pertinent Exam Findings alert, oriented x 3, clear to auscultation bilaterally, regular rate & rhythm and procedure specific exam findings abdomen soft, nt, nd Recommendations Risks and benefits of procedure reviewed and Patient/family agree to proceed Surgery/Procedure today Coding Level of Care Code Acute Code for Chg [place]
--- NOTE | 2025-01-11 12:19 | P.ANESASSM_ITS ---
Pre-Anesthetic Assessment Height/Weight: Height 1.57 m Weight 62.596 kg Temp Pulse Resp BP Pulse Ox O2 Del Method 97.0 F L 75 16 122/78 92 Room Air 01/11/25 11:11 01/11/25 11:11 01/11/25 11:11 01/11/25 11:11 01/11/25 11:11 01/11/25 11:11 Preop Diagnosis: abdominal pain Operation Date: 01/11/25 12:15 Proposed Procedures p EGD with Biopsy [id number], K21.9 R12(Not Applicable) - Timothy Rutherford MD Familial anesthetic complications: none Was Beta Vanita taken within 24 hours: N/A Was Clonidine taken within 24 hours: N/A Last intake: Intake Last Liquid Date 01/11/25 Last Liquid Time 08:00 Last Solid Date 01/10/25 Last Solid Time 21:00 Social Tobacco (1 pack per week) and No alcohol Exam alert and oriented x 3 Airway Submandibular: within normal limits Cervical ROM: within normal limits Mallampati: Class II Dentition: chipped and full History/ROS No significant history except as noted Pulmonary Asthma and Chronic Obstructive Pulmonary Disease CV/HEM Hypertension and Myocardial Infarction None reported Hepatic None reported GI Gastroesophageal Reflux Disease Metabolic Hyperlipidemia [facility] None reported Neuropsych None reported Anesthetic Plan ASA status: 3 Anesthesia: Anesthesia Evaluation and MAC Medications/Allergies Home Medications ?Medication ?Instructions ?Recorded ?Confirmed ?Last Taken ?Type acetaminophen 325 mg tablet 325 mg PO Q6H PRN pain #10 tabs 08/30/21 01/08/25 01/10/25 Rx (Tylenol) aspirin 81 mg tablet,delayed 81 mg PO DAILY 90 days #9 0 tabs 08/25/22 01/08/25 01/10/25 Rx release albuterol sulfate 90 mcg/actuation 1 inh inhalation Q4 H PRN shortness 04/21/24 01/08/25 01/10/25 Rx aerosol inhaler (Ventolin HFA) of breath or wheezing 3 0 days #18 grams ipratropium 0.5 mg-albuterol 3 mg 3 ml inhalation QID PRN wheezing 06/01/24 01/08/25 01/10/25 Rx (2.5 mg base)/3 mL nebulization #90 mL soln nitroglycerin 0.4 mg sublingual 0.4 mg sublingual Q5M PRN chest 09/21/24 01/08/25 01/10/25 Rx tablet pain #30 tabs atorvastatin 20 mg tablet 20 mg PO DAILY #30 tabs 09/2201/08/25 01/10/25 Rx omeprazole 20 mg capsule,delayed 20 mg PO DAILY PRN ac id reflux #90 01/01/25 01/08/25 01/10/25 Rx release caps oxybutynin chloride 10 mg 10 mg PO QAM #30 tabs 01/08/25 01/10/25 Rx tablet,extended release 24 hr albuterol sulfate 2.5 mg/3 mL 2.5 mg inhalation Q4H [place] N 01/10/25 01/10/25 01/10/25 History (0.083 %) solution for nebulization Shortness Of Breat h buspirone 7.5 mg tablet 7.5 mg PO TID 01/10/2501/1001/10/25 History fluticasone 250 mcg-salmeterol 50 1 inh inhalation Q12 H 01/10/25 01/10/25 01/10/25 History mcg/dose blistr powdr for inhalation Allergies Allergy/AdvReac Type Severity Reaction Status Date / Time Penicillins Allergy ALGY-Swell Verified 01/08/25 08:39 Lip/Tongue/Throat Current Medications Generic Name Dose Route Start Last Admin Trade Name Freq PRN Reason Stop Dose Admin Sodium Chloride 1,000 mls @ 15 mls/hr 01/11/25 11:02 01/11/25 11:26 Sodium Chloride 0.9% IV 01/12/25 11:01 15 mls/hr .Q24H PRN Administration COLONOSCOPY FLUIDS PFSH Anesthesia Medical History Lip cyst Cutaneous horn Stress incontinence, female Sacroiliac inflammation Back pain GERD (gastroesophageal reflux disease) COPD with asthma Increased anion gap metabolic acidosis Smoking addiction Quit smoking 08/25/2021 after 1-2 ppd for 40+ years then started back Hypotension Non-ST elevation [place] (NSTEMI) 08/28/2021 NSTEMI Hospitalization, Cardiac cath, CTA, Dr. Bajwa Sprain and strain of lumbosacral joint/ligament Psoriasis and similar disorders Anxiety and depression Surgical History Hx of colonoscopy Dr. Head 04/16/2022 normal, 10 yr repeat History of ear surgery Hx of hysterectomy Family History Other Cancer Diabetes Stroke Social History Smoking and tobacco/nicotine status: current every day tobacco/nicotine user cigarettes Packs smoked per day: 1 Quit status (tobacco/nicotine): considering quitting Alcohol intake: current Alcohol intake frequency: few times a week Substance/Drug Use: never Marital status: Legally Number of children: 3 Number of grandchildren: 4 Current occupational status: unemployed Data Anesthesia Cardiac Studies: Echocardiogram 08/28/21
[2025-01-11 12:31] VITALS: BP 86/62; PULSE 83; RESP 18; TEMP 36.4; O2SAT 93
[2025-01-11 12:47] VITALS: BP 118/60; PULSE 75; RESP 18; O2SAT 93
--- NOTE | 2025-01-11 13:06 | ANE.PACU2 ---
Inpatient post-anesthesia follow up: Airway intact: Yes Vital signs: Temperature 97.5 F Pulse Rate 75 Respiratory Rate 18 Blood Pressure 118/60 Pulse Oximetry 93 Oxygen Delivery Me thod Room Air Oxygen Flow Rate Fraction of Inspir ed Oxygen Hydration adequate: Yes Nausea and vomiting: No Pain level: 1 Mental status: Baseline
== END 2025-01-11 13:06 | disposition home or self-care (01) ==
PROVIDERS: Visit Provider Student in an Organized Health Care Education/Training Program
PROC: 0DJ08ZZ Inspection of Upper Intestinal Tract, Via Natural or Artificial Opening Endoscopic (ICD-10-PCS; principal; 2025-01-11 12:15)
DX: K29.30 Chronic superficial gastritis without bleeding (principal); R10.9 Unspecified abdominal pain; J44.9 Chronic obstructive pulmonary disease, unspecified; K21.9 Gastro-esophageal reflux disease without esophagitis; I10 Essential (primary) hypertension; I25.2 Old myocardial infarction; E78.5 Hyperlipidemia, unspecified; Z79.82 Long term (current) use of aspirin; F41.8 Other specified anxiety disorders; F17.210 Nicotine dependence, cigarettes, uncomplicated
CPT/HCPCS: 43239; 88305; 88342; J2704; J7030

== ENCOUNTER → 2025-01-25 10:10 | Outpatient (BNVA) | payer MEDICARE, MEDICAID, SELFPAY | PROVIDERS: Visit Provider Student in an Organized Health Care Education/Training Program | DX: Z09 Encounter for follow-up examination after completed treatment for conditions other than malignant neoplasm (principal) | CPT/HCPCS: 99213 ==